=== PATIENT | male | born 1960 | race Caucasian/White ===

== ENCOUNTER → 2019-10-29 11:44 | Outpatient (BNVA) | payer MEDICARE, SELFPAY | PROVIDERS: Family Provider Nurse Practitioner; PCP Nurse Practitioner; Visit Provider Nurse Practitioner | DX: E11.65 Type 2 diabetes mellitus with hyperglycemia (principal) | CPT/HCPCS: 80053; 80061; 81000; 82044; 83036 ==

== ENCOUNTER → 2020-01-28 11:22 | Outpatient (BNVA) | payer MEDICARE, SELFPAY | PROVIDERS: Family Provider Nurse Practitioner; PCP Nurse Practitioner; Visit Provider Nurse Practitioner | DX: E11.65 Type 2 diabetes mellitus with hyperglycemia (principal); E55.9 Vitamin D deficiency, unspecified; E03.9 Hypothyroidism, unspecified; I25.810 Atherosclerosis of coronary artery bypass graft(s) without angina pectoris | CPT/HCPCS: 80053; 80061; 81000; 82306; 83036; 84443 ==

== ENCOUNTER → 2020-05-07 11:12 | Outpatient (BNVA) | payer MEDICARE, SELFPAY | PROVIDERS: Family Provider Nurse Practitioner; PCP Nurse Practitioner; Visit Provider Nurse Practitioner | DX: E11.65 Type 2 diabetes mellitus with hyperglycemia (principal); E03.9 Hypothyroidism, unspecified; I10 Essential (primary) hypertension; Z95.1 Presence of aortocoronary bypass graft; E78.2 Mixed hyperlipidemia | CPT/HCPCS: 80053; 82043; 83036; 84443 ==

== ENCOUNTER → 2020-07-29 11:29 | Outpatient (BNVA) | payer MEDICARE, SELFPAY | PROVIDERS: Family Provider Nurse Practitioner; PCP Nurse Practitioner; Visit Provider Nurse Practitioner | DX: E11.65 Type 2 diabetes mellitus with hyperglycemia (principal); E03.9 Hypothyroidism, unspecified; E55.9 Vitamin D deficiency, unspecified; E78.2 Mixed hyperlipidemia; Z95.1 Presence of aortocoronary bypass graft | CPT/HCPCS: 80053; 80061; 81000; 82043; 82306; 83036; 84443 ==

== ENCOUNTER → 2020-10-21 10:37 | Outpatient (BNVA) | payer MEDICARE, SELFPAY | PROVIDERS: Family Provider Nurse Practitioner; PCP Nurse Practitioner; Visit Provider Nurse Practitioner | DX: E11.65 Type 2 diabetes mellitus with hyperglycemia (principal); E78.2 Mixed hyperlipidemia; E03.9 Hypothyroidism, unspecified; I10 Essential (primary) hypertension; Z95.1 Presence of aortocoronary bypass graft; K59.01 Slow transit constipation | CPT/HCPCS: 80053; 83036 ==

== ENCOUNTER → 2021-01-22 10:51 | Outpatient (BNVA) | payer MEDICARE, SELFPAY | PROVIDERS: Family Provider Nurse Practitioner; PCP Nurse Practitioner; Visit Provider Nurse Practitioner | DX: E11.65 Type 2 diabetes mellitus with hyperglycemia (principal); E78.2 Mixed hyperlipidemia; E03.9 Hypothyroidism, unspecified; I10 Essential (primary) hypertension; Z95.1 Presence of aortocoronary bypass graft; K59.01 Slow transit constipation; E55.9 Vitamin D deficiency, unspecified; Z12.83 Encounter for screening for malignant neoplasm of skin | CPT/HCPCS: 80053; 80061; 83036; 84443; 85025 ==

== ENCOUNTER → 2021-04-16 10:56 | Outpatient (BNVA) | payer MEDICARE, SELFPAY | PROVIDERS: Family Provider Nurse Practitioner; PCP Nurse Practitioner; Visit Provider Nurse Practitioner | DX: E11.65 Type 2 diabetes mellitus with hyperglycemia (principal); E03.9 Hypothyroidism, unspecified | CPT/HCPCS: 80053; 80061; 81000; 83036; 84443; 85025 ==

== ENCOUNTER → 2021-06-01 08:53 | Outpatient (BNVA) | payer MEDICARE, SELFPAY | PROVIDERS: Family Provider Nurse Practitioner; PCP Nurse Practitioner; Referring Provider Internal Medicine Cardiovascular Disease; Visit Provider Internal Medicine Cardiovascular Disease | DX: I49.40 Unspecified premature depolarization (principal); Z95.1 Presence of aortocoronary bypass graft; Z01.818 Encounter for other preprocedural examination; Z20.822 Contact with and (suspected) exposure to COVID-19 | CPT/HCPCS: 80048; 85025; 85610; 87635 ==

== ENCOUNTER 2021-06-05 09:14 | Day surgery (SDC) | payer MEDICARE, SELFPAY ==
--- NOTE | 2021-06-05 09:00 | XACV_ITS ---
Exam Room: [employer] Ht: 185 cm Wt: 155 kg BSA: 2.89 m2 Gender: Male : 1960 Any Known Allergies: Other Exam Priority: Routine Procedure(s): Procedure Description: Diagnostic procedure Procedure Description: Aortogram Procedure Description: Venous Graft Catheterization Procedure Description: Coronary Angiography Procedure Description: Pressure Wire Livai HODGE; Diagnostic Cath Status: Elective Diagnostic Findings * Circumflex has no disease. * Left Main: minimal 30% stenosis, MARRY: 3 flow. * Mid Left Anterior Descending: obstructive 60% stenosis, MARRY: 3 flow. * Distal Right Coronary Artery: total occlusion, MARRY: 3 flow. * Ascending Aorta to Right Posterior AV graft: patent. * Ascending Aorta to Second Obtuse Marginal Branch Segment graft: minimal 30% stenosis, MARRY: 3 flow. * Two grafts visualized. * Coronary angiography shows right dominance. Conclusions 1. There is total occlusion coronary artery disease with three vessel disease. 2. Two coronary grafts visualized: one graft patent, and one graft diseased. 3. Patient has prior CABG. 4. FFR: After equalizing the distal and proximal pressure of FFR wire proximal to the lesion, mid L 5. AD 6. lesion was crossed with FFR wire. IV adenosine at rate of 140 mcg/min was started. Patient did not compliant of any symptoms, at then end of two minutes FFR was recorded as 0.86, which is not significant . 7. Left subclavian appeared to be occluded I was not able to cross with the catheter and selective subclavian injection was suggestive of proximal occlusion. Possible TAYLOR was not used. We will ask for medical records. We performed then FFR of mid LAD which was not significant. Medical management was suggested.. Recommendations * 1-Return to inpatient for close monitoring and routine cath care2-Risk factor modification for secondary prevention3-Statin and aspirin 81 mg life--long, if tolerated4-I will ask for outpatient records to see whether TAYLOR was there are not I believe there may not be TAYLOR, since FFR was not positive therefore we will treat him medically. 5-Continue optimal medical management6-Follow up with Dr. Bhakta in four weeks and your primary care in 10 days. Diagnostic RX Recommendation: medical therapy and/or counseling Pressures Phase:Rest AO : 155 / 72 ( 91 ) @ 10:52:00 AM 118 / 72 ( 90 ) @ 10:55:00 AM 122 / 77 ( 96 ) @ 10:58:00 AM Clinical Evaluation EBL: 5mL-10mL Procedural Details Procedure Consent Obtained. Current Diagnosis : Chest Pain. Pre-Procedure Time Out. Identified patient by full name and date of as verbalized by the patient/guarantor. Does the consent match the physician's order: Yes. Accurate & Complete Informed Consent: Yes. Inpatient/Outpatient History & Physical on Chart: Yes. If H&P is completed, is and addenduem needed: No; If yes, is the addendum complete: N/A. Visualize and Verify Site with Patient/Guarantor: N/A. Relevant Radiology Images available: Yes. The risks, benefits, and alternatives of sedation and/or procedure were discussed by physician. The patient agrees to continue. Procedure started. [facility] Clinical Fraility Score: 3: Managing Well. Lathe Scalper Operator Indications: Suspected CAD. Chest Pain Symptom Assessment: Typical Angina Symptoms. Correct patient, site and procedure confirmed by cath team. Current diagnosis: Chest Pain. PERRLA. Strong, equal hand metal patternmaker bilaterally. Lungs clear x 5 lobes. A 18 gauge IV was started in the left anticubital using aseptic technique. IV Fluids: 0.9% NaCl at KVO. 0 mL infused prior to laboratory tech. Pre Procedural Pulses: right radial was 3+. Oxygen started at 2liters/min via nasal canula. right groin was prepped with chloroprep then draped in the usual sterile fashion. Physician notified. Baseline sample Acquired. HR: 73 BPM. Physician arrived. Physician scrubbed in. Immediate Pre-Procedure Time Out. Correct Patient: Yes; Correct Procedure: Yes; Correct Site: Yes; Correct Patient Position: Yes; Correct Supplies: Yes; Dried Flammable Prep: Yes; Blood Products Available: N/A;. Lidocaine 1% infiltrated to the right groin. Arterial access obtained with micropuncture set. A 6 bahamian JL4 catheter in over wire. Multiple views taken of left coronary artery. Catheter removed over the exchange wire. A 6 bahamian JR4 catheter in over wire. Multiple views taken of right coronary artery. SVG's to RV branch visualized and patent. SVG's to RCA visualized and patent. Catheter removed over the exchange wire. A 6 bahamian Angled Pig catheter in over wire. Aortogram performed in LIAT @ 20 mL/second for a total of 40 mL. Physician review of cine films. Catheter removed over the standard wire. A 5 bahamian JR4 catheter in over wire. Catheter removed over the standard wire. 6 bahamian XB 3.5 guide catheter was inserted over the wire. FFR guidewire was advanced through the guide catheter to lesion in the LAD. Runthrough repositioned to distal LAD. An FFR value of 0.86 was obtained for a lesion located at Mid LAD. Wire out. Runthrough wire out. Guide catheter out. A Right femoral angiogram was performed to determine safe placement of closure device. Patient's family updated. Lidocaine 1% infiltrated to the right groin. A Perclose ([employer]) was successful obtaining hemostatsis at the Right Femoral artery insertion site. Post Procedure: Pulses reassessed and unchanged. PERRLA. Strong, equal hand metal patternmaker bilaterally. No VTE prophylaxis required. Medication's Wasted: Heparin = 1000 u. Total IV fluids: 112 mL. Post-op diagnosis: non obstructive CAD. Complications: none. Estimated blood loss: 5mL-10mL. Procedure completed. Patient transferred by bed to 1st floor. Vital chart was stopped. Access Site Site: Right Femoral artery Sheath Size: 6 Fr Hemostasis Method: Perclose ([employer]) Hemostasis Success: Successful Procedure Medications Start: 11:25 AM Stop: 11:25 AM Medication: Fentanyl Amount: 50 mcg Route: I.V. Start: 11:34 AM Stop: 11:34 AM Medication: Versed Amount: 2 mg Route: I.V. Start: 11:45 AM Stop: 11:45 AM Medication: Fentanyl Amount: 50 mcg Route: I.V. Start: 11:47 AM Stop: 11:47 AM Medication: Versed Amount: 1 mg Route: I.V. Start: 11:58 AM Stop: 11:58 AM Medication: Versed Amount: 1 mg Route: I.V. Start: 12:16 PM Stop: 12:16 PM Medication: Heparin Amount: 5000 units Route: I.V. Start: 12:36 PM Stop: 12:36 PM Medication: Versed Amount: 1 mg Route: I.V. Start: 12:37 PM Stop: 12:37 PM Medication: Fentanyl Amount: 50 mcg Route: I.V. I, the attending physician, have reviewed and verified all procedure medications. Yes, all medications given per verbal order History/Risk Factors Hypertension: No Dyslipidemia: Yes Peripheral Arterial Disease (PAD): No Myocardial Infarction (GA): No Obesity: No Renal Disease: No Prior Interventions PCI: No CABG: Yes Valve Surgery: No Report Signatures Finalized by Andrea Bhakta MD on 06/19/2021 11:03 AM
[2021-06-05 09:30] VITALS: BP 185/97; PULSE 80; RESP 23; O2SAT 90
[2021-06-05] MEDS: diphenhydrAMINE 50 mg Capsule PO (09:31)
[2021-06-05] MEDS: sodium chloride 0.9% 1,000 ML 50 ML IV (09:36)
[2021-06-05 10:15] VITALS: BP 154/98; PULSE 71; RESP 11; O2SAT 91
[2021-06-05 11:00] VITALS: O2SAT 85
[2021-06-05 11:09] LABS: Glucose Point of Care 128 mg/dL (70-110)
--- NOTE | 2021-06-05 11:11 | P.HP_ITS ---
Same Day Surgery H&P Indication for Procedure/HPI DATE OF PROCEDURE: June 05, 2021 CHIEF COMPLAINT/INDICATIONFOR SURGICAL PROCEDURE: Ventricular arrhythmia with frequent PVCs in a patient with history of CABG diabetes PREOP DIAGNOSIS: Preablation for high burden of PVCs more than 37% PLANNED PROCEDRUE: Operation Date: 06/05/21 10:00 Proposed Procedures p Cardiac Catheterization(Left) - Andrea Bhakta MD 60-year-old male past medical history significant for hypertension hyperlipidemia diabetes mellitus coronary disease status post CABG for palpitation pounding racing of the heart underwent Holter monitor which showed 37% burden of PVCs bigeminy, patient will be referred to electrophysiology telephone solicitor for possible PVC ablation. Today he is here for preablation left heart cath to rule out ischemia or any graft problem. I have personally explained all risk benefit and alternative for the procedure. Patient und erstand risk for stroke contrast-induced nephropathy major minor bleed transfusion vascular surgery hematoma pseudoaneurysm and infection he is candidate for DAPT Medications/Allergies* Home Medications Medication Instructions Recorded Confirmed Type aspirin 81 mg tablet,delayed 81 mg PO DAILY 12/24/19 06/05/21 History release cholecalciferol (vitamin D3) 125 10,000 unit PO DAILY cap 03/02/21 06/05/21 History mcg (5,000 unit) capsule atorvastatin 20 mg PO BEDTIME 06/04/21 06/05/21 History Allergies/Adverse Reactions Allergy/AdvReac Type Severity Reaction Status Date / Time empagliflozin Allergy Intermediate Hives Verified 04/15/21 15:05 influenza virus vaccine ts Allergy Intermediate ALGY-Conges Verified 06/05/21 10:00 [id number] (36 mos,up) shun [From Fluarix] Penicillins Allergy Intermediate Hives Verified 04/15/21 15:05 glipizide Allergy ALGY-Rash Verified 04/15/21 15:05 Current Medications: Generic Name Dose Route Start Last Admin Trade Name Freq PRN Reason Stop Dose Admin Sodium Chloride 1,000 mls @ 50 mls/hr 06/05/21 09:00 06/05/21 09:36 Sodium Chloride 0.9% IV 06/06/21 04:59 50 mls/hr .Q20H ONE Administration Pertinent History/Comorbid Conditions* Medical History (Updated 05/10/21 @ 17:48 by Andrea Bhakta MD) Adult hypothyroidism CKD (chronic kidney disease), stage II Controlled diabetes mellitus with hyperglycemia, without long-term current use of insulin Mixed hyperlipidemia Vitamin D insufficiency Surgical History (Updated 02/03/20 @ 20:24 by MIRANDA Morley) History of coronary artery bypass graft 2 grafts in 2006 Family History (Updated 10/29/19 @ 11:57 by ADDIE Phan) Diabetes CAD (coronary artery disease) Hypertension Denies family history of Bleeding disorder Social History Second hand smoke exposure: No Smoking risk assessment/counseling performed?: No Alcohol intake: never Desire information about alcohol rehabilitation?: No Counseling given: No Desire information about substance/drug rehabilitation?: No Counseling given: No Caregiver/support person: No Lives independently: Yes Household members: significant other Housing: House Marital status: Single service: No Current occupational status: unemployed History of recent travel: No Current gender identity: Male Pertinent Exam Findings alert, oriented x 3 and clear to auscultation bilaterally Conscious Sedation Assessment AIRWAY EVAL/ANESTHESIA PLAN: ASA II and Risks, benefits & alternatives of sedation and/or procedure discussed Recommendations Surgery/Procedure today Coding Level of Care Code Acute Linux Security Administrator for Zaire Sin
--- NOTE | 2021-06-05 14:02 | PC.NURSE ---
Patient to rn labor and delivery at 1115 and returned to room 107 at 1315. Patient transported on bed with [facility] staff.
[2021-06-05 18:20] VITALS: BP 134/73; PULSE 90; RESP 18; O2SAT 90
--- NOTE | 2021-06-05 18:30 | PC.NURSE ---
Patient was assisted up out of bed. Patient tolerated walking/activity well. vss. Dr. Bhakta contacted by telephone. Dr. Bhakta then came to patient's room to assess patient and answer patient's questions regarding discharge and follow-up. Patient was discharged home with writeen instructions at 1830.
== END 2021-06-05 18:30 | disposition home or self-care (01) ==
LOC: CSU 09:15 → OPS 06-12 10:29 → CSU 06-12 10:29
PROVIDERS: PCP Nurse Practitioner; Visit Provider Internal Medicine Cardiovascular Disease
DX: I49.3 Ventricular premature depolarization (principal); I49.9 Cardiac arrhythmia, unspecified; I43 Cardiomyopathy in diseases classified elsewhere; I25.810 Atherosclerosis of coronary artery bypass graft(s) without angina pectoris; E11.9 Type 2 diabetes mellitus without complications; E03.9 Hypothyroidism, unspecified; E78.2 Mixed hyperlipidemia; E55.9 Vitamin D deficiency, unspecified; Z79.82 Long term (current) use of aspirin; Z79.4 Long term (current) use of insulin; Z95.1 Presence of aortocoronary bypass graft
CPT/HCPCS: 36416; 82962; 93455; 93571; C1760; C1769; C1887; C1894; G0378; J0153; J1644; J2250; J3010; J7030; Q0163; Q9967

== ENCOUNTER 2021-06-08 09:25 | Outpatient (CLI) | payer MEDICARE, SELFPAY ==
[2021-06-08 10:16] LABS: Anion Gap 13.6 (5-19); Blood Urea Nitrogen 14 mg/dL (8-23); Carbon Dioxide 28 mmol/L (22-29); Chloride 98 mmol/L (98-107); Glomerular Filtration Rate 85.5 mL/min (90-130); Glucose 183 mg/dL (65-115); Osmolality Calculated 285 mOsm/kg (285-295); Potassium 4.6 mmol/L (3.5-5.1); Sodium 135 mmol/L (136-145)
== END 2021-06-08 09:26 | disposition home or self-care (01) ==
LOC: LAB 09:32
PROVIDERS: PCP Nurse Practitioner; Visit Provider Internal Medicine Cardiovascular Disease
DX: I49.40 Unspecified premature depolarization (principal)
CPT/HCPCS: 36415; 80048

== ENCOUNTER → 2021-06-15 15:50 | Outpatient (BNVA) | payer MEDICARE, SELFPAY | PROVIDERS: PCP Nurse Practitioner; Visit Provider Nurse Practitioner Family | DX: I49.3 Ventricular premature depolarization (principal) | CPT/HCPCS: 80048 ==

== ENCOUNTER 2021-07-12 02:25 | Inpatient (IN) | payer MEDICARE, SELFPAY ==
[2021-07-12] VITALS (13 sets, daily range): BP systolic 100–142; BP diastolic 49–89; PULSE 60–83; RESP 12–22; TEMP 36.1–36.6; O2SAT 91–98; BMI 44.9
--- NOTE | 2021-07-12 02:43 | ECG_ITS ---
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 Measurements Intervals [place] Rate: 90 P: MO: QRS: -82 QRSD: 154 T: 88 QT: 409 QTc: 503 Interpretive Statements ATRIAL FIBRILLATION RIGHT BUNDLE BRANCH BLOCK [120+ ms QRS DURATION, UPRIGHT V1, 40+ ms S IN I/aVL/V4/V5/V6] INFERIOR MYOCARDIAL INFARCTION , of indeterminate age [40+ ms Q WAVE AND/OR ST/T ABNORMALITY IN II/aVF] ANTEROLATERAL MYOCARDIAL INFARCTION , OF INDETERMINATE AGE [40+ ms Q WAVE IN I/aVL/V3-V6] Compared to ECG 08/13/2018 16:19:44 Right bundle-branch block now present Myocardial infarct finding now present Sinus tachycardia no longer present First degree AV block no longer present Atrial abnormality no longer present Electronically Signed On 07-12-2021 13:16:30 HUMAN CAPITAL ANALYST by Rich Ceron M.D. [id number]
--- NOTE | 2021-07-12 03:20 | ECG_ITS ---
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 Measurements Intervals [place] Rate: 81 P: OR: QRS: -81 QRSD: 158 T: 89 QT: 420 QTc: 489 Interpretive Statements ATRIAL FIBRILLATION RIGHT BUNDLE BRANCH BLOCK [120+ ms QRS DURATION, UPRIGHT V1, 40+ ms S IN I/aVL/V4/V5/V6] ANTERIOR MYOCARDIAL INFARCTION , OF INDETERMINATE AGE [40+ ms Q WAVE AND/OR ST/T ABNORMALITY IN V3/V4] Compared to ECG 07/12/2021 02:47:52 No significant changes Electronically Signed On 07-12-2021 13:15:22 AIRPLANE DISPATCHER by Rich Ceron M.D. [id number]
--- NOTE | 2021-07-12 03:20 | XRR_ITS ---
PROCEDURE INFORMATION: Exam: XR Chest Exam date and time: 07/12/2021 3:20 AM Age: 60 years old Clinical indication: Sternal or substernal pain; Prior surgery; Surgery date: 6+ months; Surgery type: Cabg; Additional info: Chest pain TECHNIQUE: Imaging protocol: XR of the chest. Views: 1 view. Total images: 1 COMPARISON: CR Chest 2 views* 32017 08/13/2018 8:58 AM FINDINGS: Lungs: Minimal bibasilar atelectasis or scar. Pleural spaces: Unremarkable. No pleural effusion. No pneumothorax. Heart/Mediastinum: Heart size is stable when compared to the prior exam. Bones/joints: Osseous structures are unchanged from the prior exam. Other findings: Stable postsurgical changes. XR/XR chest 1V portable [id number] IMPRESSION: Minimal bibasilar atelectasis or scar. Radiation Dose CTDIVOL = (mGy): DLP = (mGy-cm)
[2021-07-12 03:35] LABS: Basophils % 0.5 %; Eosinophils # 0.2 10^3/uL (0.0-0.8); Hemoglobin 16.3 g/dL (11.7-16.6); Lymphocytes # 1.5 10^3/uL (0.8-4.8); Lymphocytes % 18.2 %; Mean Corpuscular HGB Conc 32.6 g/dL (30.0-36.0); Mean Corpuscular Hemoglobin 31.8 pg (28.0-34.0); Mean Corpuscular Volume 97.7 fl (80-94); Mean Platelet Volume 10.3 fL (7.4-10.4); Monocytes # 0.7 10^3/uL (0.2-0.9); Monocytes % 8.5 %; Neutrophils # 5.67 10^3/uL (1.8-7.7); Neutrophils % 70.6 %; Nucleated Red Blood Cells % 0 %; Platelet Count 197 10^3/cmm (130-400); Red Blood Count 5.12 10^6/uL (4.1-5.3); Red Cell Distribution Width 14.5 % (12.1-15.1)
[2021-07-12 03:51] LABS: D Dimer 0.48 ug/mIFEU (0-0.59)
[2021-07-12 04:01] LABS: Troponin(5th) Baseline 11 ng/L (0-15)
[2021-07-12 04:10] LABS: Alanine Aminotransferase 35 U/L (0-41); Albumin Level 3.8 g/dL (3.5-5.2); Alkaline Phosphatase 89 IU/L (40-130); Anion Gap 13.5 (5-19); Aspartate Amino Transferase 15 U/L (0-40); Blood Urea Nitrogen 20 mg/dL (8-23); Calcium 8.8 mg/dL (8.5-10.5); Carbon Dioxide 28 mmol/L (22-29); Chloride 103 mmol/L (98-107); Globulin 2.2 g/dL (1.3-4.6); Glomerular Filtration Rate 85.5 mL/min (90-130); Glucose 170 mg/dL (65-115); NT Pro B Type Natriuretic Pept 683 pg/mL (0-125); Osmolality Calculated 297 mOsm/kg (285-295); Potassium 4.5 mmol/L (3.5-5.1); Sodium 140 mmol/L (136-145); Total Bilirubin 0.5 mg/dL (0.15-1.2)
[2021-07-12 04:35] LABS: SARS Covid-2 Antigen Negative (Negative)
[2021-07-12] MEDS: ondansetron 2 mg/ML SDV 2 mL 4 MG IVP (04:47)
[2021-07-12] MEDS: morphine 4 mg/mL SDV 1 mL IVP (04:47)
--- NOTE | 2021-07-12 05:05 | CTR_ITS ---
PROCEDURE INFORMATION: Exam: CTA Chest With Contrast Exam date and time: 07/12/2021 5:05 AM Age: 60 years old Clinical indication: Pain; Chest pressure; Prior surgery; Additional info: Chest pain TECHNIQUE: Imaging protocol: Computed tomographic angiography of the chest with contrast. 3D rendering (Not supervised by radiologist): MIP and/or 3D reconstructed images were created by the technologist. Total images: 1003 Radiation optimization: All CT scans at this facility use at least one of these dose optimization techniques: automated exposure control; mA and/or kV adjustment per patient size (includes targeted exams where dose is matched to clinical indication); or iterative reconstruction. Contrast material: OMNI 350; Contrast volume: 95 ml; Contrast route: INTRAVENOUS (IV); COMPARISON: CR (CHEST, ) 07/12/2021 3:23 AM RADIATION DOSE METRICS: Total DLP (mGy-cm): 629.95 FINDINGS: Pulmonary arteries: Pulmonary artery evaluation of good technical quality with no pulmonary artery embolism identified. Aorta: Unremarkable. No aortic aneurysm. No aortic dissection. Lungs: Benign granulomatous disease of the lung is noted. Pleural spaces: Unremarkable. No pneumothorax. No pleural effusion. Heart: Prior coronary artery bypass grafting. Lymph nodes: Multiple mildly enlarged mediastinal and hilar lymph nodes which are partially calcified. The largest is in the right paratracheal area measuring 1.6 cm in short axis diameter. Gallbladder and bile ducts: Cholelithiasis is present without cholecystitis. No gallbladder wall thickening or pericholecystic fluid collection. Bones/joints: Unremarkable. No acute fracture. Soft tissues: Unremarkable. CT/CT angio chest PE protcl [id number] IMPRESSION: 1. Multiple mildly enlarged mediastinal and hilar lymph nodes which are partially calcified. The largest is in the right paratracheal area measuring 1.6 cm in short axis diameter. 2. Benign granulomatous disease of the lung is noted. 3. No pulmonary artery embolism identified. 4. No acute process identified. 5. Cholelithiasis is present without cholecystitis. No gallbladder wall thickening or pericholecystic fluid collection. Radiation Dose CTDIVOL = (mGy): DLP = 629.95 (mGy-cm)
--- NOTE | 2021-07-12 05:20 | ECG_ITS ---
[facility] Test Date: 2021-07-12 Pat Name: Henry Perez Department: Room: Gender: Male Rock Mason: : 1960 Requested By: Catrachito Pro Order Number: [id number] Hankins MD: Rich Ceron M.D. Measurements Intervals [place] Rate: 64 P: 41 [place]: 257 QRS: 261 QRSD: 96 T: -29 QT: 405 QTc: 419 Interpretive Statements SINUS RHYTHM WITH FIRST DEGREE AV BLOCK POSSIBLE LEFT ATRIAL ENLARGEMENT [-0.1mV P-WAVE IN V1/V2] PATTERN CONSISTENT WITH PULMONARY DISEASE POSSIBLE RIGHT VENTRICULAR HYPERTROPHY [SOME/ALL OF: PROMINENT R IN V1, LATE TRANSITION, RAD, MARILEE, SSS] MINIMAL ST DEPRESSION [0.025+ mV ST DEPRESSION] ABNORMAL QRS-T ANGLE [QRS-T AXIS DIFFERENCE > 60] Compared to ECG 07/12/2021 03:30:03 First degree AV block now present ST (T wave) deviation now present Atrial fibrillation no longer present Right bundle-branch block no longer present Myocardial infarct finding no longer present Electronically Signed On 07-12-2021 13:28:36 STEEL PLATE CAULKER by Rich Ceron M.D. [id number]
--- NOTE | 2021-07-12 05:22 | W.ED.CHESTPA ---
Documented by User: Catrachtio Howard, 07/12/21 06:15 HPI - Chest Pain General: Chief Complaint: Chest Pain Stated Complaint: cp, chest pressure Time Seen by Provider: 07/12/21 03:12 History of Present Illness: HPI narrative: 60-year-old gentleman with a history of coronary disease status post CABG in 2006. He has some new atherosclerotic narrowing on recent catheterization, although none severe enough to stent. He presents with chest discomfort. He says it started tonight while in bed. Mild shortness of breath associated with it. No nausea or diaphoresis. The pain does not radiate. It is centralized. He denies significant cough or fever. MD complaint: chest pain Pertinent past history: coronary artery disease Onset (ago): hour(s) Timing of current episode: constant Prior episodes: Yes Onset: during rest Pain location: substernal Pain radiation: none Quality: aching and heaviness Exacerbating factors: exertion Context: history of DVT/PE Associated symptoms: Reports dyspnea; Deny abdominal pain, fever(s), nausea, palpitations or vomiting Review of Systems Const: Denies: fever(s) Eyes: Denies: change in vision ENMT: Denies: throat pain Card: Reports: chest pain; Denies: palpitations Resp: Reports: dyspnea GI: Denies: abdominal pain, nausea or vomiting PFSH ED PFSH: Medical History Adult hypothyroidism CKD (chronic kidney disease), stage II Controlled diabetes mellitus with hyperglycemia, without long-term current use of insulin Mixed hyperlipidemia Slow transit constipation Vitamin D insufficiency Surgical History History of coronary artery bypass graft 2 grafts in 2006 Family History Other CAD (coronary artery disease) Diabetes Hypertension Denies family history of Bleeding disorder Social History Second hand smoke exposure: No Smoking risk assessment/counseling performed?: No Alcohol intake: never Desire information about alcohol rehabilitation?: No Counseling given: No Desire information about substance/drug rehabilitation?: No Counseling given: No Caregiver/support person: No Lives independently: Yes Household members: significant other Housing: House Marital status: Single service: No Current occupational status: unemployed History of recent travel: No Current gender identity: Male Physical Exam Const: COMMON NORMALS: no acute distress, patient oriented x3 and alert HENMT: COMMON NORMALS: normocephalic HEAD & SCALP: normocephalic Eye: COMMON NORMALS: Equal, round and reactive pupils present and EOMs intact bilaterally PUPIL: Yes Equal, round and reactive pupils present Chest: COMMONS NORMALS: normal inspection of the chest Resp: COMMON NORMALS: normal respiratory effort, No use of accessory muscles and clear to auscultation bilaterally AUSCULTATION: clear to auscultation bilaterally and diminished lung sounds Cardio: COMMON NORMALS: regular rate and regular rhythm RATE: regular rate RHYTHM: regular rhythm Extremity: COMMON NORMALS: no pedal edema Neuro: COMMON NORMALS: patient oriented x3 SENSORIUM/ORIENTATION: Yes alert Course Vital Signs: Vital signs: Vital Signs Temperature 97 F L 07/12/21 02:32 Pulse Rate 60 07/12/21 07:32 Respiratory Rate 12 07/12/21 07:32 Blood Pressure 100/49 07/12/21 07:32 Pulse Oximetry 94 07/12/21 07:32 MDM - Chest Pain MDM Narrative: Medical decision making narrative: 60-year-old male presents with chest pain. He is significantly hypoxic on arrival, although he is not tachypneic or having labored breathing. Oxygen saturations were in the 70s and low 80s. He was placed on 3 L nasal cannula with improvement to 93%. His heart rate 66, sinus, blood pressure 116/65 his white blood cell count is 8, hemoglobin 16. BMP is normal. His baseline troponin is 11. His D-dimer is only 0.48. Nevertheless, because of significant hypoxia on exam, CTA of the chest has been ordered. 2nd trop still pending. He'll be checked out to Dr. Whitney at shift change for fu on findings and admit for hypoxic resp failure. Lab Data: Labs: Lab Results 07/12/21 07/12/21 07/12/21 03:03 03:03 03:03 WBC 8.0 10^3/uL 10^3/ uL (4.0-10.0) RBC 5.12 10^6/uL 10^6 /uL (4.1-5.3) Hgb 16.3 g/dL g/dL (11.7-16.6) Hct 50.0 % % (42.0-52.0) MCV 97.7 fl H fl (80-94) MCH 31.8 pg pg (28.0-34.0) MCHC 32.6 g/dL g/dL (30.0-36.0) RDW 14.5 % % (12.1-15.1) Plt Count 197 10^3/cmm 10^3 /cmm (130-400) MPV 10.3 fL fL (7.4-10.4) Neut % (Auto) 70.6 % % Lymph % (Auto) 18.2 % % [place] % (Auto) 8.5 % % Eos % (Auto) 2.0 % % Baso % (Auto) 0.5 % % Neut # (Auto) 5.67 10^3/uL 10^3 /uL (1.8-7.7) Lymph # (Auto) 1.5 10^3/uL 10^3/ uL (0.8-4.8) [place] # (Auto) 0.7 10^3/uL 10^3/ uL (0.2-0.9) Eos # (Auto) 0.2 10^3/uL 10^3/ uL (0.0-0.8) Baso # (Auto) 0.0 10^3/uL 10^3/ uL (0.0-0.1) Nucleated RBC % (a uto) 0 % % Nucleated RBCs # 0.0 /100WBC /100W BC D-Dimer 0.48 ug/mIFEU ug/ mIFEU (0-0.59) Specimen Type Sample Site ABG pH ABG pCO2 ABG pO2 ABG HCO3 ABG Base Excess Johnathan Test Hematocrit O2 Delivery Device O2 Liters/Min Tip Stretcher ID Sodium 140 mmol/L mmol/L (136-145) Potassium 4.5 mmol/L mmol/L (3.5-5.1) Chloride 103 mmol/L mmol/L (98-107) Carbon Dioxide 28 mmol/L mmol/L (22-29) Anion Gap 13.5 (5-19) BUN 20 mg/dL mg/dL (8-23) Creatinine 0.9 mg/dL mg/dL (0.7-1.2) GFR Calculation 85.5 mL/min L mL/ min (90-130) Glucose 170 mg/dL H mg/dL (65-115) Calculated Osmolal ity 297 mOsm/kg H mOs m/kg (285-295) Calcium 8.8 mg/dL mg/dL (8.5-10.5) Total Bilirubin 0.5 mg/dL mg/dL (0.15-1.2) AST 15 U/L U/L (0-40) ALT 35 U/L U/L (0-41) Alkaline Phosphata se 89 IU/L IU/L (40-130) Troponin T Baselin e Troponin T 120 Min [place] Delta Troponin T NT-Pro-B Natriuret Pep 683 pg/mL H pg/mL (0-125) Total Protein 6.0 g/dL L g/dL (6.6-8.7) Albumin 3.8 g/dL g/dL (3.5-5.2) Globulin 2.2 g/dL g/dL (1.3-4.6) SARS-CoV-2 Ag (Rap id) 07/12/21 07/12/21 07/12/21 03:03 03:49 04:57 WBC RBC Hgb Hct MCV MCH MCHC RDW Plt Count MPV Neut % (Auto) Lymph % (Auto) [place] % (Auto) Eos % (Auto) Baso % (Auto) Neut # (Auto) Lymph # (Auto) [place] # (Auto) Eos # (Auto) Baso # (Auto) Nucleated RBC % (a uto) Nucleated RBCs # D-Dimer Specimen Type Arterial Sample Site Radial, right ABG pH 7.32 L (7.35-7.45) ABG pCO2 59.0 mmHg H mmHg (35-45) ABG pO2 59.1 mmHg L mmHg (80.0-100.0) ABG HCO3 30.0 mmol/L H mmo l/L (22-26) ABG Base Excess 2.0 mmol/L mmol/L (-2.0-2.0) Johnathan Test Pos Hematocrit 50.2 % % (42-52) O2 Delivery Device Nc O2 Liters/Min 3.0 % % Tip Stretcher ID [email or web address] Sodium Potassium Chloride Carbon Dioxide Anion Gap BUN Creatinine GFR Calculation Glucose Calculated Osmolal ity Calcium Total Bilirubin AST ALT Alkaline Phosphata se Troponin T Baselin e 11 ng/L ng/L (0-15) Troponin T 120 Min [place] Delta Troponin T NT-Pro-B Natriuret Pep Total Protein Albumin Globulin SARS-CoV-2 Ag (Rap id) Negative (Negative) 07/12/21 05:58 WBC RBC Hgb Hct MCV MCH MCHC RDW Plt Count MPV Neut % (Auto) Lymph % (Auto) [place] % (Auto) Eos % (Auto) Baso % (Auto) Neut # (Auto) Lymph # (Auto) [place] # (Auto) Eos # (Auto) Baso # (Auto) Nucleated RBC % (a uto) Nucleated RBCs # D-Dimer Specimen Type Sample Site ABG pH ABG pCO2 ABG pO2 ABG HCO3 ABG Base Excess Johnathan Test Hematocrit O2 Delivery Device O2 Liters/Min Tip Stretcher ID Sodium Potassium Chloride Carbon Dioxide Anion Gap BUN Creatinine GFR Calculation Glucose Calculated Osmolal ity Calcium Total Bilirubin AST ALT Alkaline Phosphata se Troponin T Baselin e Troponin T 120 Min [place] 11.26 ng/L ng/L (0-15) Delta Troponin T 0.26 ABS# ABS# (0-10) NT-Pro-B Natriuret Pep Total Protein Albumin Globulin SARS-CoV-2 Ag (Rap id) Discharge Plan Discharge Patient Disposition: Admitted As Inpatient Clinical Impression: Chest pain, Hypoxemia Condition: Stable Coding Level of Care Code ED Lead Network Engineer for Chg Fwd Exam Detailed Documented by User: Eusebio Whitney MD 07/12/21 08:16 HPI - Chest Pain General: Chief Complaint: Chest Pain Stated Complaint: cp, chest pressure Time Seen by Provider: 07/12/21 03:12 PFS ED PFSH: Medical History Adult hypothyroidism CKD (chronic kidney disease), stage II Controlled diabetes mellitus with hyperglycemia, without long-term current use of insulin Mixed hyperlipidemia Slow transit constipation Vitamin D insufficiency Surgical History History of coronary artery bypass graft 2 grafts in 2006 Family History Other CAD (coronary artery disease) Diabetes Hypertension Denies family history of Bleeding disorder Social History Second hand smoke exposure: No Smoking risk assessment/counseling performed?: No Alcohol intake: never Desire information about alcohol rehabilitation?: No Counseling given: No Desire information about substance/drug rehabilitation?: No Counseling given: No Caregiver/support person: No Lives independently: Yes Household members: significant other Housing: House Marital status: Single service: No Current occupational status: unemployed History of recent travel: No Current gender identity: Male Course Vital Signs: Vital signs: Vital Signs Temperature 97 F L 07/12/21 02:32 Pulse Rate 60 07/12/21 07:32 Respiratory Rate 12 07/12/21 07:32 Blood Pressure 100/49 07/12/21 07:32 Pulse Oximetry 94 07/12/21 07:32 MDM - Chest Pain MDM Narrative: Medical decision making narrative: CTA negative for any ground glass opacities or PE. Patient is occasionally hypoxemic. Troponin x 2 negative. Will admit for chest pain workup. Lab Data: Labs: Lab Results 07/12/21 07/12/21 07/12/21 03:03 03:03 03:03 WBC 8.0 10^3/uL 10^3/ uL (4.0-10.0) RBC 5.12 10^6/uL 10^6 /uL (4.1-5.3) Hgb 16.3 g/dL g/dL (11.7-16.6) Hct 50.0 % % (42.0-52.0) MCV 97.7 fl H fl (80-94) MCH 31.8 pg pg (28.0-34.0) MCHC 32.6 g/dL g/dL (30.0-36.0) RDW 14.5 % % (12.1-15.1) Plt Count 197 10^3/cmm 10^3 /cmm (130-400) MPV 10.3 fL fL (7.4-10.4) Neut % (Auto) 70.6 % % Lymph % (Auto) 18.2 % % [place] % (Auto) 8.5 % % Eos % (Auto) 2.0 % % Baso % (Auto) 0.5 % % Neut # (Auto) 5.67 10^3/uL 10^3 /uL (1.8-7.7) Lymph # (Auto) 1.5 10^3/uL 10^3/ uL (0.8-4.8) [place] # (Auto) 0.7 10^3/uL 10^3/ uL (0.2-0.9) Eos # (Auto) 0.2 10^3/uL 10^3/ uL (0.0-0.8) Baso # (Auto) 0.0 10^3/uL 10^3/ uL (0.0-0.1) Nucleated RBC % (a uto) 0 % % Nucleated RBCs # 0.0 /100WBC /100W BC D-Dimer 0.48 ug/mIFEU ug/ mIFEU (0-0.59) Specimen Type Sample Site ABG pH ABG pCO2 ABG pO2 ABG HCO3 ABG Base Excess Johnathan Test Hematocrit O2 Delivery Device O2 Liters/Min Tip Stretcher ID Sodium 140 mmol/L mmol/L (136-145) Potassium 4.5 mmol/L mmol/L (3.5-5.1) Chloride 103 mmol/L mmol/L (98-107) Carbon Dioxide 28 mmol/L mmol/L (22-29) Anion Gap 13.5 (5-19) BUN 20 mg/dL mg/dL (8-23) Creatinine 0.9 mg/dL mg/dL (0.7-1.2) GFR Calculation 85.5 mL/min L mL/ min (90-130) Glucose 170 mg/dL H mg/dL (65-115) Calculated Osmolal ity 297 mOsm/kg H mOs m/kg (285-295) Calcium 8.8 mg/dL mg/dL (8.5-10.5) Total Bilirubin 0.5 mg/dL mg/dL (0.15-1.2) AST 15 U/L U/L (0-40) ALT 35 U/L U/L (0-41) Alkaline Phosphata se 89 IU/L IU/L (40-130) Troponin T Baselin e Troponin T 120 Min [place] Delta Troponin T NT-Pro-B Natriuret Pep 683 pg/mL H pg/mL (0-125) Total Protein 6.0 g/dL L g/dL (6.6-8.7) Albumin 3.8 g/dL g/dL (3.5-5.2) Globulin 2.2 g/dL g/dL (1.3-4.6) SARS-CoV-2 Ag (Rap id) 07/12/21 07/12/21 07/12/21 03:03 03:49 04:57 WBC RBC Hgb Hct MCV MCH MCHC RDW Plt Count MPV Neut % (Auto) Lymph % (Auto) [place] % (Auto) Eos % (Auto) Baso % (Auto) Neut # (Auto) Lymph # (Auto) [place] # (Auto) Eos # (Auto) Baso # (Auto) Nucleated RBC % (a uto) Nucleated RBCs # D-Dimer Specimen Type Arterial Sample Site Radial, right ABG pH 7.32 L (7.35-7.45) ABG pCO2 59.0 mmHg H mmHg (35-45) ABG pO2 59.1 mmHg L mmHg (80.0-100.0) ABG HCO3 30.0 mmol/L H mmo l/L (22-26) ABG Base Excess 2.0 mmol/L mmol/L (-2.0-2.0) Johnathan Test Pos Hematocrit 50.2 % % (42-52) O2 Delivery Device Nc O2 Liters/Min 3.0 % % Tip Stretcher ID [id number] Sodium Potassium Chloride Carbon Dioxide Anion Gap BUN Creatinine GFR Calculation Glucose Calculated Osmolal ity Calcium Total Bilirubin AST ALT Alkaline Phosphata se Troponin T Baselin e 11 ng/L ng/L (0-15) Troponin T 120 Min [place] Delta Troponin T NT-Pro-B Natriuret Pep Total Protein Albumin Globulin SARS-CoV-2 Ag (Rap id) Negative (Negative) 07/12/21 05:58 WBC RBC Hgb Hct MCV MCH MCHC RDW Plt Count MPV Neut % (Auto) Lymph % (Auto) [place] % (Auto) Eos % (Auto) Baso % (Auto) Neut # (Auto) Lymph # (Auto) [place] # (Auto) Eos # (Auto) Baso # (Auto) Nucleated RBC % (a uto) Nucleated RBCs # D-Dimer Specimen Type Sample Site ABG pH ABG pCO2 ABG pO2 ABG HCO3 ABG Base Excess Johnathan Test Hematocrit O2 Delivery Device O2 Liters/Min Tip Stretcher ID Sodium Potassium Chloride Carbon Dioxide Anion Gap BUN Creatinine GFR Calculation Glucose Calculated Osmolal ity Calcium Total Bilirubin AST ALT Alkaline Phosphata se Troponin T Baselin e Troponin T 120 Min [place] 11.26 ng/L ng/L (0-15) Delta Troponin T 0.26 ABS# ABS# (0-10) NT-Pro-B Natriuret Pep Total Protein Albumin Globulin SARS-CoV-2 Ag (Rap id) Imaging Data^: Other Imaging: Radiologist's impression: [facility] [place], [place] [address] Scan ReportSigned Patient: Henry Perez #: [id number]: 1960cct#:[id number]/Sex: 60 / MADM Date: 07/12/21Loc: [facility]/Bed:Attending Dr: Ordering Provider/Ordering MD: Catrachito Howard DO Date of Service: 07/12/21 Procedure(s): CT angio chest PE protcl [id number] Accession Number(s): [id number] Report Number: [id number] PROCEDURE INFORMATION: Exam: CTA Chest With Contrast Exam date and time: 07/12/2021 5:05 AM Age: 60 years old Clinical indication: Pain; Chest pressure; Prior surgery; Additional info: Chest pain TECHNIQUE: Imaging protocol: Computed tomographic angiography of the chest with contrast. 3D rendering (Not supervised by radiologist): MIP and/or 3D reconstructed images were created by the technologist. Total images: 1003 Radiation optimization: All CT scans at this facility use at least one of these dose optimization techniques: automated exposure control; mA and/or kV adjustment per patient size (includes targeted exams where dose is matched to clinical indication); or iterative reconstruction. Contrast material: OMNI 350; Contrast volume: 95 ml; Contrast route: INTRAVENOUS (IV); COMPARISON: CR (CHEST, ) 07/12/2021 3:23 AM RADIATION DOSE METRICS: Total DLP (mGy-cm): 629.95 FINDINGS: Pulmonary arteries: Pulmonary artery evaluation of good technical quality with no pulmonary artery embolism identified. Aorta: Unremarkable. No aortic aneurysm. No aortic dissection. Lungs: Benign granulomatous disease of the lung is noted. Pleural spaces: Unremarkable. No pneumothorax. No pleural effusion. Heart: Prior coronary artery bypass grafting. Lymph nodes: Multiple mildly enlarged mediastinal and hilar lymph nodes which are partially calcified. The largest is in the right paratracheal area measuring 1.6 cm in short axis diameter. Gallbladder and bile ducts: Cholelithiasis is present without cholecystitis. No gallbladder wall thickening or pericholecystic fluid collection. Bones/joints: Unremarkable. No acute fracture. Soft tissues: Unremarkable. CT/CT angio chest PE protcl [id number] IMPRESSION: 1. Multiple mildly enlarged mediastinal and hilar lymph nodes which are partially calcified. The largest is in the right paratracheal area measuring 1.6 cm in short axis diameter. 2. Benign granulomatous disease of the lung is noted. 3. No pulmonary artery embolism identified. 4. No acute process identified. 5. Cholelithiasis is present without cholecystitis. No gallbladder wall thickening or pericholecystic fluid collection. Radiation Dose CTDIVOL = (mGy): DLP = 629.95 (mGy-cm) Dictated By:Vitaliy Summers MDSigned By:Vitaliy Summers MDSigned Date/Time:07/12/21 0608DD/ [address] [address]GLnh ReportSigned Patient: Henry Perez #: [id number]: 8Acct#:[id number]/Sex: 60 / MADM Date: 07/12/21Loc: [facility]/Bed:Attending Dr: Ordering Provider/Ordering MD: Catrachito Howard DO Date of Service: 07/12/21 Procedure(s): XR chest 1V portable [id number] Accession Number(s): [id number] Report Number: [id number] PROCEDURE INFORMATION: Exam: XR Chest Exam date and time: 07/12/2021 3:20 AM Age: 60 years old Clinical indication: Sternal or substernal pain; Prior surgery; Surgery date: 6+ months; Surgery type: Cabg; Additional info: Chest pain TECHNIQUE: Imaging protocol: XR of the chest. Views: 1 view. Total images: 1 COMPARISON: CR Chest 2 views* [id number] 08/13/2018 8:58 AM FINDINGS: Lungs: Minimal bibasilar atelectasis or scar. Pleural spaces: Unremarkable. No pleural effusion. No pneumothorax. Heart/Mediastinum: Heart size is stable when compared to the prior exam. Bones/joints: Osseous structures are unchanged from the prior exam. Other findings: Stable postsurgical changes. XR/XR chest 1V portable [id number] IMPRESSION: Minimal bibasilar atelectasis or scar. Radiation Dose CTDIVOL = (mGy): DLP = (mGy-cm) Dictated By:Vitaliy Summers MDSigned By:Vitaliy Summers MDSigned Date/Time:07/12/21 0514DD/ 0320 Discharge Plan Discharge Patient Disposition: Admitted As Inpatient Clinical Impression: Chest pain, Hypoxemia Condition: Stable Coding Level of Care Code ED Lead Network Engineer for Chg Fwd Exam Detailed
[2021-07-12] MEDS: iohexol 350 mg/mL 100 mL Btl IV (05:52)
[2021-07-12 06:05] LABS: Blood Gas Allen Test Pos; Blood Gas Sample Site Radial, right; Blood Gas Sample Type Arterial
[2021-07-12 06:51] LABS: Troponin 5 2HR 11.26 ng/L (0-15); Troponin 5 2HR Delta 0.26 ABS# (0-10)
[2021-07-12] MEDS: metoprolol tartrate 50 mg Tablet PO (09:12)
--- NOTE | 2021-07-12 09:20 | ECG_ITS ---
[facility] Test Date: 2021-07-12 Pat Name: Henry Perez Department: Room: Gender: Male Tribal Judge: : 1960 Requested By: Catrachito Pro Order Number: [id number] Nhi MD: Rich Ceron M.D. Measurements Intervals [place] Rate: 65 P: 52 MI: 267 QRS: 259 QRSD: 103 T: -34 QT: 386 QTc: 404 Interpretive Statements SINUS RHYTHM WITH FIRST DEGREE AV BLOCK POSSIBLE LEFT ATRIAL ENLARGEMENT [-0.1mV P-WAVE IN V1/V2] PATTERN CONSISTENT WITH PULMONARY DISEASE RIGHT VENTRICULAR HYPERTROPHY [SOME/ALL OF: PROMINENT R IN V1, LATE TRANSITION, RAD, MARILEE, SSS] ST DEVIATION AND MODERATE T-WAVE ABNORMALITY, CONSIDER INFERIOR ISCHEMIA [-0.1+ mV T-WAVE IN II/aVF] Compared to ECG 07/12/2021 06:29:27 T-wave abnormality now present Possible ischemia now present ST (T wave) deviation no longer present Electronically Signed On 07-12-2021 13:26:36 SECURITY ENGINEER by Rich Ceron M.D. [email or web address]The Dolan Companyprovidence [facility].[id number]
[2021-07-12 09:58] LABS: ABG PCO2 78.5 mmHg (35-45); ABG PH Result 7.35 (7.35-7.45); Arterial Blood Gas Hematocrit 42.5 % (42-52); Base Excess ABG 13.5 mmol/L (-2.0-2.0); Oxygen Device BIPAP; PO2 ABG 69.3 mmHg (80.0-100.0)
[2021-07-12 10:03] LABS: Troponin 5 6HR 9.11 ng/L (0-15)
[2021-07-12 10:35] LABS: Troponin 5 6HR Delta -1.89 ng/L (0-12)
[2021-07-12 11:41] LABS: Glucose Point of Care 124 mg/dL (70-110)
--- NOTE | 2021-07-12 13:43 | P.HP_ITS ---
Providers/Chief Complaint Admitting Physician: Ion Parks MD Primary Care Provider: Catarina Olsen, IN[employer] Chief Complaint: cp, chest pressure History of Present Illness Henry Perez is a 60 year old male with past medical history of hypertension, hyperlipidemia, type 2 diabetes mellitus, CAD post CABG, frequent VPCs/bigeminy is up to 37% on Holter monitor with recent cardiac angiogram on 06/05 which showed no significant coronary stenosis, SVG to RV branch, SVG to RCA patent, lesion in mid LAD which was evaluated by FFR found to be 0.86 which was not hemodynamically significant and was kept on medical treatment presented to the ER last night with complaint of difficulty in breathing. Patient states he has been having occasional difficulty in breathing which is always followed by chest pressure and few episodes of palpitations. Patient denies any chest pain, chest pressure at rest or baseline. States difficulty in breathing gets worse by exertion denies any PND or orthopnea. Complaining of bilateral lower leg swelling which states has been stable. Does have history of obstructive sleep apnea in the past for which he used to use CPAP but not using currently because he states he has been cured of sleep apnea since he lost weight. Blood work in the ER showed a white count of 8, hemoglobin of 16.3, D-dimer of 0.4, ABG showing a pH of 7.35, PCO2 of 78, PO2 of 69, chemistry showing a sodium of 140, chloride of 103, creatinine of 0.9, AST/ALT of 15/39, baseline troponin of 11 with delta of -0.1 0.8 in 6 hours, rapid COVID-[address] results a ppreciated as below. Review of Systems General: Reports: 10 or more systems reviewed and unremarkable except in HPI and below Const: Denies: fever(s), chills, body aches, change in appetite, change in weight, malaise, night sweats, diaphoresis, change in sleep pattern, daytime sleepiness or snoring Eyes: Denies: change in vision, blurry vision, photophobia, eye discomfort or eye discharge ENMT: Denies: throat pain, enlarged tonsils, hoarseness, mouth pain, oral sores, dry mouth, tinnitus, nasal congestion or post nasal drip Card: Denies: chest pain, palpitations, irregular heart rhythm, edema, swelling of feet/ankles, lightheadedness, syncope, pre-syncope, dyspnea on exertion, orthopnea, leg pain with exertion or acrocyanosis Resp: Denies: dyspnea, productive cough, non-productive cough, wheezing, stridor, pain on inspiration, change in phlegm color, hemoptysis or chest congestion GI: Denies: abdominal pain, nausea, vomiting, hematemesis, coffee ground emesis, dysphagia, heartburn, diarrhea, constipation, bloating, GI cramping, change in bowel habits, pain on defecation, hematochezia or melena : Denies: flank pain, difficulty urinating, dysuria, urinary frequency, urinary urgency, urinary hesitancy, urinary dribbling, difficulty starting urination, change in urine stream, nocturia or hematuria Musc: Denies: neck pain, back pain, extremity pain, joint pain, joint swelling, joint redness, joint stiffness or limited range of motion Neuro: Denies: headache(s), numbness in extremities, weakness in extremities, sensory changes, lack of coordination, difficulty walking, frequent falls, dizziness, vertigo, confusion, Slurred speech present, difficulty communicating thoughts or seizure-like activity Psych: Denies: anxiety, depression, mood swings, panic attacks, hopelessness or irritability Endo: Denies: polyuria, polydipsia, tired all the time, cold intolerance, ex cessive sweating, flushing or heat intolerance Kenn/Lymph: Denies: easy bruising or easy bleeding All/Imm: Denies: tongue swelling, facial swelling or acute wheezing Medications/Allergies Home Medications Medication Instructions Recorded Confirmed Last Taken Type aspirin 81 mg tablet,delayed 81 mg PO DAILY 12/24/19 07/12/21 07/11/21 History release cholecalciferol (vitamin D3) 125 10,000 unit PO DAILY cap 03/02/21 07/12/21 07/11/21 History mcg (5,000 unit) capsule docusate sodium 100 mg capsule 100 mg PO DAILY #90 cap 04/19/21 07/12/21 07/11/21 Rx levothyroxine 150 mcg tablet 150 mcg PO DAILY #90 tab 04/19/21 07/12/21 07/11/21 Rx lisinopril 5 mg tablet 5 mg PO DAILY #90 tab 04/19/21 07/12/21 07/11/21 Rx nitroglycerin 0.4 mg sublingual 0.4 mg SUBLINGUAL Q5M PRN #25 tab 04/19/21 07/12/21 Unknown Rx tablet pen needle, diabetic 33 gauge x #100 ea 04/19/21 07/12/21 Unknown Rx semaglutide 1 mg/dose (2 mg/1.5 1 mg SUBCUT .weekly #3 ml 04/19/21 07/12/21 07/11/21 Rx mL) subcutaneous pen injector spironolactone 25 mg tablet 25 mg PO DAILY #90 tab 04/19/21 07/12/21 07/11/21 Rx blood sugar diagnostic #50 each 05/20/21 07/12/21 Unknown Rx insulin detemir U-100 100 unit/mL See Rx Instructions SUBCUT DAILY 06/02/21 07/12/21 07/11/21 Rx (3 mL) subcutaneous pen #15 ml atorvastatin 20 mg PO BEDTIME 06/04/21 07/12/21 07/11/21 History isosorbide dinitrate 5 mg PO BID #60 tab 06/05/21 07/12/21 07/11/21 Rx metoprolol succinate 25 mg 25 mg PO DAILY #90 tab 06/09/21 07/12/21 07/11/21 Rx tablet,extended release 24 hr fenofibrate nanocrystallized 48 mg PO DAILY 07/12/21 07/12/21 07/11/21 History Allergies Allergy/AdvReac Type Severity Reaction Status Date / Time empagliflozin Allergy Intermediate Hives Verified 06/15/21 14:43 influenza virus vaccine ts Allergy Intermediate ALGY-Conges Verified 06/15/21 1 4:43 [id number] (36 mos,up) shun [From Fluarix] Penicillins Allergy Intermediate Hives Verified 06/15/21 14:43 glipizide Allergy ALGY-Rash Verified 06/15/21 14:43 PFSH Acute PFSH: Medical History (Updated 07/12/21 @ 13:48 by Ion Parks MD) Adult hypothyroidism CAD (coronary artery disease) Chest pressure CKD (chronic kidney disease), stage II Controlled diabetes mellitus with hyperglycemia, without long-term current use of insulin Frequent PVCs Mixed hyperlipidemia Obstructive sleep apnea Slow transit constipation Vitamin D insufficiency Surgical History (Updated 07/12/21 @ 13:48 by Ion Parks MD) History of coronary artery bypass graft 2 grafts in 2007 Family History Other CAD (coronary artery disease) Diabetes Hypertension Denies family history of Bleeding disorder Social History Second hand smoke exposure: No Smoking risk assessment/counseling performed?: No Alcohol intake: never Desire information about alcohol rehabilitation?: No Counseling given: No Desire information about substance/drug rehabilitation?: No Counseling given: No Caregiver/support person: No Lives independently: Yes Household members: significant other Housing: House Marital status: Single service: No Current occupational status: unemployed History of recent travel: No Current gender identity: Male Vitals/I&O/Wt Last Vital Signs Temp 97 F L 07/12/21 02:32 Pulse 78 07/12/21 12:27 Resp 22 H 07/12/21 12:27 BP 112/68 07/12/21 12:27 Pulse Ox 94 07/12/21 12:27 Weight last 48 hrs Weight 154.221 kg Physical Exam Narrative: EXAM NARRATIVE: General: No acute distress, AO x3, on 4 L oxygen supplementation saturating 94% sitting up in bed HEENT: PERRLA, pupils bilaterally equal and reactive Chest: Bilateral bronchial breath sounds, occasional rhonchi over the lung wong, fine crackles present in lower zone, equal good air entry bilaterally CVS: S1-S2 regular, occasional missed beats, soft pansystolic murmur present in apex, no tachycardia, no gallops, no rubs Abdomen: Soft, nontender, no organomegaly, bowel sounds present Neuro: No focal deficits, no facial deformity, AO x3, power 5/5 in all limbs Data : 07/12/21 03:03 07/12/21 03:03 A&P Assessment and plan (1) Frequent PVCs: Status: Acute (2) Hypoxemia: Status: Acute (3) Chest pressure: Status: Acute (4) CAD (coronary artery disease): Status: Acute (5) History of coronary artery bypass graft: Status: Acute (6) CKD (chronic kidney disease), stage II: Status: Acute (7) Controlled diabetes mellitus with hyperglycemia, without long-term current use of insulin: Status: Acute Qualifiers: Diabetes mellitus type: type 2 Qualified Code(s): E11.65 - Type 2 diabetes mellitus with hyperglycemia (8) Obstructive sleep apnea: Status: Acute Additional A&P Information Hypoxia: Most likely a combination of CHF and possible COPD exacerbation. Patient does give history of sleep apnea in the past not on CPAP anymore. CHF most likely secondary to frequent VPCs in setting of baseline CAD. Keep saturation over 88%. Check echocardiogram. IV Lasix 40 mg every 24 hour. Continue home dose of spironolactone. Daily weights, strict input output charting, fluid restriction 1500 cc. DuoNebs every 6 hours, budesonide twice daily. Hold off on steroids for now. Less likely pneumonia. No consolidation on CT. For now hold off on antibiotics. If patient spikes fever will add. Check sputum culture, urine Legionella bacterial antigen. Check flu swab. COVID-19 PCR sent out from ER. Isolation precautions. Chest pressure: Unlikely secondary to CAD. Troponin cycle negative. Most likely secondary to possible congestive heart failure. Recent cardiac catheterization noted. Continue to monitor. Continue with home dose of aspirin, statin, fenofibrate, isosorbide, metoprolol. Frequent PVCs: Patient to follow-up as an outpatient with patient observation assistant for possible ablation. Continue metoprolol. Telemetry. Might have to go higher on metoprolol dose depending on VPC burden within next 24 hours. Continue other chronic medications. Hypertension: Goal blood pressure less than 140/90 mmHg. Continue home dose of antihypertensives. Full code. Cardiac carb consistent diet. Lovenox for DVT prophylaxis. Protonix for PUD prophylaxis. Attestations Medical Necessity Statement*: Admission for more than 2 midnights for evalua tion and management of hypoxia most likely secondary to congestive heart failure in setting of baseline CAD/post CABG with frequent VPCs Time Spent in Patient Care: Greater than 35 minutes (>than 50% of time spent in counselling and/or direct pt care on unit) . 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
[2021-07-12 14:37] LABS: Add Urine Microscopic? NO; Charge for UA Resulting for Rev
[2021-07-12 14:42] LABS: Bilirubin Urine Neg (Negative); Blood Urine Neg (Negative); Glucose Urine UA Norm (Normal); Ketones Urine Negative (Negative); Leukocyte Esterase Urine Negative (Negative); Nitrate Urine Negative (Negative); Protein Urine Neg (Negative); Specific Gravity, Urine 1.015 (1.005-1.030); Urine Appearance Clear (CLEAR); Urine Color Straw (Yellow); Urobilinogen Urine Norm (Negative); pH Urine 5 (5-7)
[2021-07-12 14:55] LABS: Potassium, Radom Urine 40 mmol/L; Urine Random Chloride 77 mmol/L; Urine Random Sodium 76 mmol/L
[2021-07-12 14:55] LABS: Procalcitonin 0.02 ng/mL (0-0.5); Thyroid Stimulating Hormone 5.41 uIU/mL (0.27-4.20)
[2021-07-12] MEDS: enoxaparin 40 mg/0.4 mL Syringe SUBCUT (14:55)
[2021-07-12] MEDS: FUROsemide 10 mg/mL SDV 4mL 40 MG IVP (14:55)
[2021-07-12] MEDS: famotidine 20 mg/2 mL INJ IVP (14:55)
[2021-07-12 15:06] LABS: Iron 77 ug/dL (59-158); Percent Saturation 22.6 % (20-50); Total Iron Binding Capacity 340 mcg/dl; Unsaturated Iron Binding 263 ug/dL (112-347)
[2021-07-12 15:39] LABS: Influenza A by IFA Negative (Negative); Influenza B by IFA Negative (Negative)
[2021-07-12 17:02] LABS: Free T4 Free Thyroxine 1.04 ng/dL (0.82-1.77); T3 Free 2.3 PG/ML (2.0-4.4)
--- NOTE | 2021-07-12 18:00 | PC.NURSE ---
Addendum entered by Arely Quintanilla RN 07/12/21 20:07: Pt has had first degree AV block w/ HR of upper 60s. on 4 L nasal cannula. cold fingers and toes. pt has old scars on chest and left leg. pt stated no BP on left arm since we can't get any reading due to previous harvest graft for cabg. Original Note: Shift Note Frequent safety and comfort rounds continue. Orders and/or nursing care completed as indicated. Patient monitored for response to intervention and treatment(s). Education provided includes oxygen safety, telemetry monitoring. Patient and/or food service sales representatives verbaliZes understanding. Will continue to monitor.
[2021-07-12 18:02] LABS: Glucose Point of Care 128 mg/dL (70-110)
[2021-07-12] MEDS: ferrous gluconate 324 mg Tablet PO (18:35)
--- NOTE | 2021-07-12 19:57 | PC.NURSE ---
Received report from CLAUDIA Valdez. Patient resting in bed with eyes closed. Eyes spontaneously with verbal stimuli. Patient denies chest pain or pressure presently. Discussed insulin dosing with patient. Patient stated, I take my long acting insulin every morning. I do not want to take at night. Currently refusing to take SS insulin due to current BS of 155 which would require him to receive 2 units. Patient again stated, I will just wait until the morning and see.
[2021-07-12 20:17] LABS: Glucose Point of Care 155 mg/dL (70-110)
[2021-07-12] MEDS: atorvastatin 40 mg Tablet 20 MG PO (20:52)
[2021-07-12] MEDS: ipratropium-albuterol 3 mL Neb INHALATION ×2 (21:44→21:45)
[2021-07-12] MEDS: budesonide 0.5 mg/2 mL Neb INHALATION (21:45)
--- NOTE | 2021-07-12 23:46 | PC.NURSE ---
Addendum entered by Amee Gonzalez RN 07/12/21 23:59: Informed Dr Garay. Doctor here on the floor. Assessed patient and doctor is ok with SpO2 at decreased levels stating, this is probably his baseline. Will continue to monitor. Original Note: Noted patient to have low SpO2 81-86% on 5L NC currently. Patient denies any discomfort stating, I feel like I always do. I don't feel short of breath. Patient has history of JACINTO of which he does NOT wear CPAP at home. He also does not have or use home oxygen. Informed RT. RT to see patient. Will continue to monitor.
[2021-07-13] VITALS (16 sets, daily range): BP systolic 103–126; BP diastolic 53–92; PULSE 69–85; RESP 16–26; TEMP 36.6–36.8; O2SAT 89–94
[2021-07-13] MEDS: famotidine 20 mg/2 mL INJ IVP ×2 (01:01→15:02)
--- NOTE | 2021-07-13 01:10 | PC.NURSE ---
Noted patient to have SpO2 decreasing to upper 60s. Woke patient and had a discussion about his low oxygen. Patient stated, that ain't nothing, at home I have seen my oxygen as low as in the 40s and sometimes my meter just reads low . Instructed patient on significance of decreased oxygen related to his heart health and increased potential for cardiac arrest. Patient verbalized understanding. RT at bedside. Patient agreeable to use oxymask at this time stating, that is the kind of mask I wore when I wore a mask for my sleep apnea. Patient SpO2 currently 90-93%.
[2021-07-13] MEDS: ipratropium-albuterol 3 mL Neb INHALATION ×4 (03:45→21:16)
--- NOTE | 2021-07-13 04:57 | PC.NURSE ---
Shift Note Frequent safety and comfort rounds continue. Orders and/or nursing care completed as indicated. Patient monitored for response to intervention and treatment(s). Education provided includes oxymask and oxygen use. Patient verbalized complete understanding. Achieved better SpO2 levels with the use of oxymask especially during sleep. Patient able to maintain SpO2 on NC while awake. SpO2 86-93%. Patient denies any pain this morning and reports feeliing much better. No distress observed. Will continue to monitor.
[2021-07-13 06:09] LABS: Basophils % 0.4 %; Eosinophils # 0.1 10^3/uL (0.0-0.8); Eosinophils % 1.5 %; Hemoglobin 15.7 g/dL (11.7-16.6); Lymphocytes # 1.3 10^3/uL (0.8-4.8); Mean Corpuscular HGB Conc 30.2 g/dL (30.0-36.0); Mean Corpuscular Hemoglobin 31.4 pg (28.0-34.0); Mean Platelet Volume 10.2 fL (7.4-10.4); Monocytes # 0.9 10^3/uL (0.2-0.9); Monocytes % 10.3 %; Neutrophils # 6.53 10^3/uL (1.8-7.7); Neutrophils % 73.5 %; Nucleated Red Blood Cells % 0 %; Platelet Count 196 10^3/cmm (130-400); Red Cell Distribution Width 14.7 % (12.1-15.1); White Blood Count 8.9 10^3/uL (4.0-10.0)
[2021-07-13 06:36] LABS: Alanine Aminotransferase 26 U/L (0-41); Albumin Level 3.7 g/dL (3.5-5.2); Alkaline Phosphatase 78 IU/L (40-130); Anion Gap 17.8 (5-19); Aspartate Amino Transferase 11 U/L (0-40); Blood Urea Nitrogen 14 mg/dL (8-23); Calcium 8.4 mg/dL (8.5-10.5); Carbon Dioxide 28 mmol/L (22-29); Chloride 99 mmol/L (98-107); Creatinine Clr Calc Pharmacy 148.5044; Globulin 2.3 g/dL (1.3-4.6); Glucose 137 mg/dL (65-115); Osmolality Calculated 293 mOsm/kg (285-295); Potassium 4.8 mmol/L (3.5-5.1); Sodium 140 mmol/L (136-145); Total Bilirubin 0.6 mg/dL (0.15-1.2)
[2021-07-13 06:37] LABS: Magnesium 1.8 mg/dL (1.7-2.3); Phosphorus 3.3 mg/dL (2.5-4.5)
[2021-07-13 06:38] LABS: Chol HDL Ratio 4.14 mg/dL (1.0-5.00); Cholesterol 116 mg/dL (0-200); HDL Cholesterol 28 mg/dL (60-100); LDL Cholesterol Calculated 58 mg/dL (50-129); Triglycerides 148 mg/dL (0-150); VLDL Cholestrol Calculation 30 mg/dL (0-30)
[2021-07-13 06:42] LABS: Glucose Point of Care 136 mg/dL (70-110)
[2021-07-13 06:53] LABS: Estmated Average Glucose 171; Hemoglobin A1C 7.6 % (4.0-6.0)
[2021-07-13] MEDS: metoprolol succinate ER (24 HR) 25 mg Tablet PO (08:10)
[2021-07-13] MEDS: levothyroxine 150 mcg Tablet PO (08:10)
[2021-07-13] MEDS: ferrous gluconate 324 mg Tablet PO ×2 (08:10→19:08)
[2021-07-13] MEDS: spironolactone 25 mg Tablet PO (08:10)
[2021-07-13] MEDS: lisinopril 5 mg Tablet PO (08:11)
[2021-07-13] MEDS: aspirin 81 mg EC Tablet PO (08:11)
[2021-07-13] MEDS: docusate sodium 100 mg Capsule PO (08:11)
[2021-07-13] MEDS: budesonide 0.5 mg/2 mL Neb INHALATION ×2 (08:56→21:16)
--- NOTE | 2021-07-13 10:21 | PC.CHAP ---
Pastoral Care Encounter/Spiritual Assessment Type of Contact [] Declined shell mold bonder visit [] Patient/Family/Request visit [] Outpatient visit [] Follow-up visit [] Physician referral [] Code/Alert [x] Routine visit [] Staff referral [] Actively dying [] Patient sleeping [] Family support [] [] Out of room [] Palliative care [] [] Receiving care in room [] Pre-surgical visit [] Trauma [] Long length of stay [] ICU visit [] Other: Relational/Emotional Strength [] Patient feels connected with others/family/visitors/staff [] Distress [] Loneliness/isolation [] Abandonment Spirituality of Patient [] Person of Rere [] Attends Latter-Day of their Rere [] Believes in Prayer [] Reads Bible or Pentecostal materials [] There are Spiritual issues to be addressed Community Case Manager Interventions [x] Prayer [x] Active listening x[] Non-anxious presence [x] Spiritual/emotional support [] Crisis/trauma care [] Spiritual counseling [] Bereavement support [] Provided bereavement packet [] Provided Bible/devotional materials [] Provided toy/stuffed animal, coloring book to patient or family member [] Provided Communion [] Anointing/[place] [] Salvation [x] Completed spiritual assessment [] Other: Impact on Illness or Injury [] Angry [] Fearful [] Anxious [] Often cries [] Exhaustion [] Unable to work [] Unable to attend denominational [] Unable to walk/stand [] Unable to read [] Unable to drive [] Unable to eat/drink [] Unable to sleep [] Unable to be with family [] Patient intubated [] Other: Summary patient feeling better waiting for more info Time spent with patient 5 min
[2021-07-13] MEDS: insulin glargine 100 units/1 mL 40 UNIT SUBCUT (10:52)
[2021-07-13 11:36] LABS: Glucose Point of Care 154 mg/dL (70-110)
[2021-07-13] MEDS: insulin lispro 100 unit/1 mL SUBCUT (12:37)
[2021-07-13] MEDS: enoxaparin 40 mg/0.4 mL Syringe SUBCUT (15:02)
[2021-07-13 17:22] LABS: Quest SARS-CoV-2 RNA NOT DETECTED (NOT DETECTED)
--- NOTE | 2021-07-13 17:38 | P.PN_ITS ---
Subjective Subjective: Interval history: Earlier today having chest pressure, worse with taking a deep breath. Denies positional changes/worsening when supine. Denies worsening with moving his arms or torso. Denies cough. No phlegm production. Vitals/I&O/Wt Last Vital Signs Temp 98.0 F 07/13/21 16:00 Pulse 79 07/13/21 14:30 Resp 18 07/13/21 14:25 BP 126/61 07/13/21 08:00 Pulse Ox 93 07/13/21 14:25 07/13/21 07/13/21 07/13/21 06:59 14:59 22:59 Intake Total 150 / 390 700 / 700 Balance 150 / 390 700 / 700 Weight last 48 hrs Weight 154.312 kg Weight 154.221 kg Physical Exam Const: COMMON NORMALS: no acute distress, patient oriented x3 and alert GENERAL APPEARANCE: cooperative NUTRITIONAL APPEARANCE: obese ORIENTATION/CONSCIOUSNESS: Yes awake HENMT: COMMON NORMALS: oropharynx normal Neck/C-Spine: COMMON NORMALS: no JVD Resp: COMMON NORMALS: normal respiratory effort and clear to auscultation bilaterally AUSCULTATION: clear to auscultation bilaterally and crackles Laterality: bilateral (base) Cardio: COMMON NORMALS: no JVD, regular rhythm, S1 normal heart sound present, S2 normal heart sound present and No murmurs present (Cardio) RHYTHM: regular rhythm HEART SOUNDS: S1 normal heart sound present and S2 normal heart sound present GI: COMMON NORMALS: Normal to inspection, nondistended, normoactive bowel sounds present, Soft to palpation and non-tender PALPATION: Yes Soft to palpation Extremity: COMMON NORMALS: no joint enlargement GENERAL: Yes edema (2+) Neuro: COMMON NORMALS: patient oriented x3 and moves all extremities SENSORIUM/ORIENTATION: Yes alert Skin: COMMON NORMALS: no rashes or lesions noted GENERAL SKIN EXAM: no rashes or lesions noted Data : 07/13/21 05:04 07/13/21 05:04 Micro: Microbiology 07/12/21 14:15 MRSA Culture - Final Nose 07/12/21 14:15 Bacterial Antigens - Final Urine Kidney 07/12/21 14:15 Legionella Urinary Antigen - Final Urine,Voided A&P Assessment and plan (1) Hypoxemia: Requiring 5 L by nasal cannula. More coarse/crackly sounding bases. 2+ peripheral edema. Blood pressure low this afternoon, Lasix in the afternoon cut down to 20 mg dose for now. Monitor blood pressure, resume diuresis as tolerating. Hold lisinopril, metoprolol for now, monitor blood pressures, resume depending on how he is doing. Follow-up TTE Discussed with him, and treated sleep apnea may also contribute to pulmonary edema, CHF exacerbation. He reports stopped using CPAP in 2009 after his sleep apnea had resolved. Has not had any reassessment. Could be contributing to his arrhythmias as well. Discussed with him would benefit from repeat sleep study. He verbalized understanding agreement. Less likely pneumonia. Rapid flu negative. COVID-19 rapid and PCR negative. MRSA PCR negative. Negative urine bacterial antigens. Status: Acute (2) Frequent PVCs: Last night at 10 PM also noted some dropped beats, possibly Mobitz type II, but difficult to tell. Continue telemetry monitoring at this time. Hold metoprolol for now. Next dose tomorrow morning, will adjust depending on findings on the monitor. Pending EP follow-up for ablation due to frequent PVCs Status: Acute (3) Chest pressure: Continue diuresis as tolerating. No PE on CTA. Possibly due to fluid overload, with some pleuritic component. Follow-up TTE Status: Acute (4) CAD (coronary artery disease): Status: Acute (5) History of coronary artery bypass graft: Status: Acute (6) CKD (chronic kidney disease), stage II: Status: Acute (7) Controlled diabetes mellitus with hyperglycemia, without long-term current use of insulin: Status: Acute Qualifiers: Diabetes mellitus type: type 2 Qualified Code(s): E11.65 - Type 2 diabetes mellitus with hyperglycemia (8) Obstructive sleep apnea: Would benefit from repeat sleep study. Status: Acute Additional A&P Information Hypertension: Continue home dose of antihypertensives. Attestations Medical Necessity Statement*: Continue admission for assessment of management of hypoxic respiratory failure, congestive heart failure, arrhythmias. 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
[2021-07-13 18:12] LABS: Glucose Point of Care 100 mg/dL (70-110)
[2021-07-13] MEDS: FUROsemide 10 mg/mL SDV 2mL 20 MG IVP (19:08)
--- NOTE | 2021-07-13 19:51 | PC.NURSE ---
Received report from CLAUDIA Valdez. Patient resting in bed watching TV. Denies pain. No distress observed. Discussed fluid intake. Patient reports drinking a lot of water everyday. Instructed patient to drink when thirsty and not to force fluids. Patient verbalized understanding but will require much reinforcement. Will continue to monitor.
--- NOTE | 2021-07-13 20:12 | PC.NURSE ---
Shift Note Frequent safety and comfort rounds continue. Orders and/or nursing care completed as indicated. Patient monitored for response to intervention and treatment(s). Education provided includes oxygen and telemetry monitoring, iv lasix decrease. Patient and/or outreach representative . Will continue to monitor.
[2021-07-13] MEDS: atorvastatin 40 mg Tablet 20 MG PO (20:45)
[2021-07-13 20:47] LABS: Glucose Point of Care 131 mg/dL (70-110)
[2021-07-14] VITALS (15 sets, daily range): BP systolic 100–130; BP diastolic 65–83; PULSE 65–94; RESP 12–25; TEMP 36.6; O2SAT 88–96
[2021-07-14] MEDS: ipratropium-albuterol 3 mL Neb INHALATION ×4 (02:44→20:47)
[2021-07-14] MEDS: famotidine 20 mg/2 mL INJ IVP ×2 (03:03→14:38)
[2021-07-14 04:17] LABS: Basophils % 0.4 %; Eosinophils # 0.1 10^3/uL (0.0-0.8); Eosinophils % 1.2 %; Hematocrit 48.7 % (42.0-52.0); Hemoglobin 15.4 g/dL (11.7-16.6); Lymphocytes # 1.8 10^3/uL (0.8-4.8); Mean Corpuscular HGB Conc 31.6 g/dL (30.0-36.0); Mean Corpuscular Hemoglobin 32.3 pg (28.0-34.0); Mean Corpuscular Volume 102.1 fl (80-94); Mean Platelet Volume 10.1 fL (7.4-10.4); Monocytes # 0.9 10^3/uL (0.2-0.9); Monocytes % 10.9 %; Neutrophils # 5.56 10^3/uL (1.8-7.7); Neutrophils % 66.3 %; Nucleated Red Blood Cells % 0 %; Platelet Count 192 10^3/cmm (130-400); Red Blood Count 4.77 10^6/uL (4.1-5.3); Red Cell Distribution Width 14.8 % (12.1-15.1); White Blood Count 8.4 10^3/uL (4.0-10.0)
[2021-07-14 04:33] LABS: Anion Gap 18.1 (5-19); Blood Urea Nitrogen 17 mg/dL (8-23); Calcium 8.6 mg/dL (8.5-10.5); Carbon Dioxide 27 mmol/L (22-29); Chloride 97 mmol/L (98-107); Glomerular Filtration Rate 85.5 mL/min (90-130); Glucose 114 mg/dL (65-115); Osmolality Calculated 288 mOsm/kg (285-295); Potassium 4.1 mmol/L (3.5-5.1); Sodium 138 mmol/L (136-145)
--- NOTE | 2021-07-14 05:36 | PC.NURSE ---
Shift Note Frequent safety and comfort rounds continue. Orders and/or nursing care completed as indicated. Patient monitored for response to intervention and treatment(s). Education provided includes oxygen. Patient verbalized complete understanding. Patient agreeable to possible sleep study. Patient does have significant decrease in SpO2 while asleep noted to decrease as low as 44%. Patient recovers quickly with use of oxymask during sleep at 5L. Patient denies any symptoms related to decrease in SpO2. Patient denies pain or needs. No other distresses observed. Will continue to monitor.
[2021-07-14 06:57] LABS: Glucose Point of Care 114 mg/dL (70-110)
[2021-07-14] MEDS: ferrous gluconate 324 mg Tablet PO ×2 (08:38→18:49)
[2021-07-14] MEDS: docusate sodium 100 mg Capsule PO (08:38)
[2021-07-14] MEDS: levothyroxine 150 mcg Tablet PO (08:38)
[2021-07-14] MEDS: spironolactone 25 mg Tablet PO (08:38)
[2021-07-14] MEDS: insulin glargine 100 units/1 mL 40 UNIT SUBCUT (08:38)
[2021-07-14] MEDS: aspirin 81 mg EC Tablet PO (08:38)
[2021-07-14] MEDS: fenofibrate 48 mg Tablet PO (08:40)
[2021-07-14] MEDS: budesonide 0.5 mg/2 mL Neb INHALATION ×2 (08:44→20:47)
[2021-07-14 11:17] LABS: Glucose Point of Care 152 mg/dL (70-110)
[2021-07-14] MEDS: insulin lispro 100 unit/1 mL SUBCUT ×2 (12:45→20:49)
[2021-07-14] MEDS: enoxaparin 40 mg/0.4 mL Syringe SUBCUT (14:39)
--- NOTE | 2021-07-14 15:40 | P.PN_ITS ---
Subjective Subjective: Interval history: Discussed with him low blood pressures yesterday. Today blood pressures are doing better. He denies chest pain or pressure. Persistently hypoxic, but denies trouble breathing with the nasal cannula. Vitals/I&O/Wt Last Vital Signs Temp 97.9 F 07/14/21 04:00 Pulse 72 07/14/21 14:58 Resp 20 H 07/14/21 14:54 BP 130/83 07/14/21 13:53 Pulse Ox 91 07/14/21 14:54 07/14/21 07/14/21 07/14/21 06:59 14:59 22:59 Intake Total 236 / 236 Output Total 1300 / 2000 900 / 900 Balance -1300 / -190 -664 / -664 Weight last 48 hrs Weight 158.122 kg Weight 154.312 kg Physical Exam Const: COMMON NORMALS: no acute distress, patient oriented x3 and alert GENERAL APPEARANCE: cooperative NUTRITIONAL APPEARANCE: obese ORIENTATION/CONSCIOUSNESS: Yes awake HENMT: COMMON NORMALS: oropharynx normal Neck/C-Spine: COMMON NORMALS: no JVD Resp: COMMON NORMALS: normal respiratory effort and clear to auscultation bilaterally AUSCULTATION: clear to auscultation bilaterally and crackles Laterality: bilateral (base) Cardio: COMMON NORMALS: no JVD, regular rhythm, S1 normal heart sound present, S2 normal heart sound present and No murmurs present (Cardio) RHYTHM: regular rhythm HEART SOUNDS: S1 normal heart sound present and S2 normal heart sound present GI: COMMON NORMALS: Normal to inspection, nondistended, normoactive bowel soun ds present, Soft to palpation and non-tender PALPATION: Yes Soft to palpation Extremity: COMMON NORMALS: no joint enlargement GENERAL: Yes edema (2+) Neuro: COMMON NORMALS: patient oriented x3 and moves all extremities SENSORIUM/ORIENTATION: Yes alert Skin: COMMON NORMALS: no rashes or lesions noted GENERAL SKIN EXAM: no rashes or lesions noted Data : 07/14/21 03:20 07/14/21 03:20 Micro: Microbiology 07/12/21 14:15 MRSA Culture - Final Nose A&P Assessment and plan (1) Hypoxemia: Blood pressures improved. Blood pressure medications adjusted. Held amlodipine, metoprolol at this time. Continue to monitor heart rates. Resuming diuresis with 40 mg IV every 12 hours Lasix. Requiring 6 L by nasal cannula. More coarse/crackly sounding bases. 2+ peripheral edema. Blood pressure low this afternoon, Lasix in the afternoon cut down to 20 mg dose for now. Monitor blood pressure, resume diuresis as tolerating. Hold lisinopril, metoprolol for now, monitor blood pressures, resume depending on how he is doing. Follow-up TTE - reordered Discussed with him, and treated sleep apnea may also contribute to pulmonary edema, CHF exacerbation. He reports stopped using CPAP in 2009 after his sleep apnea had resolved. Has not had any reassessment. Could be contributing to his arrhythmias as well. Discussed with him would benefit from repeat sleep study. He verbalized understanding agreement. Less likely pneumonia. Rapid flu negative. COVID-19 rapid and PCR negative. MRSA PCR negative. Negative urine bacterial antigens. Status: Acute (2) Frequent PVCs: For now metoprolol on hold. Continue telemetry monitoring. Re-ordered TTE Also noted some dropped beats, possibly Mobitz type II, but difficult to tell. Continue telemetry monitoring at this time. Pending EP follow-up for ablation due to frequent PVCs Status: Acute (3) Chest pressure: Resolved. Continue diuresis as tolerating. No PE on CTA. Possibly due to fluid overload, with some pleuritic component. Follow-up TTE Status: Acute (4) CAD (coronary artery disease): Status: Acute (5) History of coronary artery bypass graft: Status: Acute (6) CKD (chronic kidney disease), stage II: Status: Acute (7) Controlled diabetes mellitus with hyperglycemia, without long-term current use of insulin: Status: Acute Qualifiers: Diabetes mellitus type: type 2 Qualified Code(s): E11.65 - Type 2 diabetes mellitus with hyperglycemia (8) Obstructive sleep apnea: Would benefit from repeat sleep study. Status: Acute Additional A&P Information Hypertension: Continue home dose of antihypertensives. Attestations Medical Necessity Statement*: Continue admission for assessment management of acute CHF, acute hypoxic respiratory failure. 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
[2021-07-14 16:19] LABS: Glucose Point of Care 98 mg/dL (70-110)
[2021-07-14] MEDS: FUROsemide 10 mg/mL SDV 4mL 40 MG IVP (17:34)
[2021-07-14] MEDS: atorvastatin 40 mg Tablet 20 MG PO (20:41)
[2021-07-14 20:55] LABS: Glucose Point of Care 184 mg/dL (70-110)
[2021-07-15] VITALS (19 sets, daily range): BP systolic 109–151; BP diastolic 71–86; PULSE 76–103; RESP 14–22; TEMP 36.4–36.8; O2SAT 90–97
[2021-07-15] MEDS: ipratropium-albuterol 3 mL Neb INHALATION ×4 (02:23→21:08)
[2021-07-15] MEDS: famotidine 20 mg/2 mL INJ IVP ×2 (04:06→16:22)
[2021-07-15] MEDS: FUROsemide 10 mg/mL SDV 4mL 40 MG IVP ×2 (04:06→16:23)
[2021-07-15 04:17] LABS: Basophils % 0.4 %; Eosinophils # 0.1 10^3/uL (0.0-0.8); Eosinophils % 1.8 %; Hematocrit 49.3 % (42.0-52.0); Hemoglobin 15.7 g/dL (11.7-16.6); Lymphocytes # 1.5 10^3/uL (0.8-4.8); Lymphocytes % 19.7 %; Mean Corpuscular HGB Conc 31.8 g/dL (30.0-36.0); Mean Corpuscular Volume 100.6 fl (80-94); Mean Platelet Volume 9.6 fL (7.4-10.4); Monocytes # 0.8 10^3/uL (0.2-0.9); Monocytes % 10.3 %; Neutrophils # 5.29 10^3/uL (1.8-7.7); Neutrophils % 67.5 %; Nucleated Red Blood Cells % 0 %; Platelet Count 194 10^3/cmm (130-400); Red Cell Distribution Width 14.8 % (12.1-15.1); White Blood Count 7.8 10^3/uL (4.0-10.0)
[2021-07-15 04:40] LABS: Anion Gap 16.2 (5-19); Blood Urea Nitrogen 14 mg/dL (8-23); Calcium 9.3 mg/dL (8.5-10.5); Carbon Dioxide 31 mmol/L (22-29); Chloride 98 mmol/L (98-107); Creatinine Clr Calc Pharmacy 150.5682; Glucose 142 mg/dL (65-115); Osmolality Calculated 295 mOsm/kg (285-295); Potassium 4.2 mmol/L (3.5-5.1); Sodium 141 mmol/L (136-145)
--- NOTE | 2021-07-15 06:00 | XR_ITS ---
WS: [id number] Exam: XR chest 1V portable [id number] Date/Time of Exam: 07/15/2021 6:12 AM Reason For Exam: Hypoxia Comparison 08/13/2018. Chronic right basal changes are noted. No acute infiltrates are noted. The lungs are fully inflated. Heart size is normal. No pleural effusions. The mediastinum is not widened. Signs of previous median sternotomy. Bony structures are intact. XR/XR chest 1V portable [id number] IMPRESSION: 1. Chronic right basal changes. No acute cardiopulmonary finding. No change.
--- NOTE | 2021-07-15 06:30 | USCV_ITS ---
Henry Perez Age: 60 Gender: M : 1960 Exam Date: 07/15/2021 07:05 Ordering Phys: Osvaldo Alicea MD Technologist: Exam Location: [facility] – [place] Indication: HX PR BP: 117 / 71 HR: 84 Rhythm: Sinus Technical Quality: Adequate MEASUREMENTS (Male / Female) Normal Values 2D ECHO LV Diastolic Diameter PLAX 4.2 cm 4.2 - 5.9 / 3.9 - 5.3 cm LV Systolic Diameter PLAX 3.0 cm IVS Diastolic Thickness 1.1 cm 0.6 - 1.0 / 0.6 - 0.9 cm IVS Systolic Thickness 1.8 cm LVPW Diastolic Thickness 1.5 cm 0.6 - 1.0 / 0.6 - 0.9 cm LVPW Systolic Thickness 1.4 cm LVOT Diameter 2.0 cm LV Ejection Fraction 2D Teich 55.5 % LA Diameter 3.6 cm LA Width 3.8 cm LA Height 6.1 cm RA Width 0.0 cm RA Height 4.9 cm Aorta at Sinotubular Diameter 2.7 cm M-MODE Aortic Annulus Diameter 3.7 cm LA Ao Ratio MM 1.0 MV E Point Septal Separation 1.1 cm DOPPLER AV Peak Velocity 111.0 cm/s LVOT Peak Velocity 80.0 cm/s AV Area Cont Eq vti 2.8 cm squared AV Area Cont Eq pk 2.3 cm squared MV Area PHT 5.0 cm squared Mitral E to A Ratio 1.1 MV E' Velocity 41.4 cm/s Mitral E to MV E' Ratio 6.3 Mitral E to LV E' Lateral Ratio 6.7 Mitral E to LV E' Septal Ratio 6.0 TR Peak Velocity 168.7 cm/s TR Peak Gradient 11.4 mmHg TV Peak E Velocity 89.0 cm/s Right Atrial Pressure 3.0 mmHg Pulmonary Artery Systolic Pressu 14.4 mmHg PV Peak Velocity 95.0 cm/s FINDINGS Left Ventricle Normal left ventricular cavity size. Normal left ventricular systolic function. Left ventricular ejection fraction is estimated at 55%. There appeared to be septal bounce which could be secondary interventricular conduction delay.Grade I/IV diastolic dysfunction (abnormal relaxation filling pattern), normal to mildly elevated filling pressures. Right Ventricle The right ventricle is normal in size and function. Right Atrium The right atrium is normal in size. Left Atrium The left atrium is normal in size. Mitral Valve Structurally normal mitral valve without significant stenosis or prolapse. There is no mitral regurgitation. Aortic Valve Moderate aortic valve calcification. No aortic valve stenosis. No aortic valve regurgitation. Tricuspid Valve Structurally normal tricuspid valve without significant stenosis or regurgitation. Pulmonary artery systolic pressure is normal. Pulmonic Valve Structurally normal pulmonic valve without significant stenosis. There is no pulmonic regurgitation. Pericardium Normal pericardium without effusion. Aorta Normal ascending aorta dimension. CONCLUSIONS 1-Normal left ventricular cavity size. Normal left ventricular systolic function. Left ventricular ejection fraction is estimated at 55%. There appeared to be septal bounce which could be secondary interventricular conduction delay.Grade I/IV diastolic dysfunction (abnormal relaxation filling pattern), normal to mildly elevated filling pressures. 2-Moderate aortic valve calcification. No aortic valve stenosis. No aortic valve regurgitation. 3-Structurally normal mitral valve without significant stenosis or prolapse. There is no mitral regurgitation. 4-There is no pericardial effusion. 5-Due to poor quality on the prior images cannot compare it with previous studies Andrea Bhakta MD (Electronically Signed) Final Date: 15 July 2021 22:46 S
[2021-07-15 07:19] LABS: Glucose Point of Care 132 mg/dL (70-110)
[2021-07-15] MEDS: ferrous gluconate 324 mg Tablet PO ×2 (07:33→18:22)
[2021-07-15] MEDS: insulin glargine 100 units/1 mL 40 UNIT SUBCUT (07:33)
[2021-07-15] MEDS: spironolactone 25 mg Tablet PO (08:20)
[2021-07-15] MEDS: docusate sodium 100 mg Capsule PO (08:20)
[2021-07-15] MEDS: aspirin 81 mg EC Tablet PO (08:20)
[2021-07-15] MEDS: levothyroxine 150 mcg Tablet PO (08:21)
[2021-07-15] MEDS: fenofibrate 48 mg Tablet PO (08:21)
[2021-07-15] MEDS: budesonide 0.5 mg/2 mL Neb INHALATION ×2 (09:14→21:08)
--- NOTE | 2021-07-15 09:35 | PC.SOCIAL ---
Pg 2 IMM Explained to pt Pg 2 IMM. No questions voiced. Provided pt a copy. Initialed, dated, & timed a copy & placed in chart.
[2021-07-15 11:48] LABS: Glucose Point of Care 142 mg/dL (70-110)
[2021-07-15] MEDS: insulin lispro 100 unit/1 mL SUBCUT ×3 (12:16→20:45)
[2021-07-15] MEDS: bisacodyl 5 mg Tablet 10 MG PO (12:26)
[2021-07-15] MEDS: enoxaparin 40 mg/0.4 mL Syringe SUBCUT (14:20)
--- NOTE | 2021-07-15 15:44 | PM.PN ---
Subjective Subjective: Interval history: States he is feeling about the same. No chest pain or pressure. Still on 5 L of oxygen. Did not wear CPAP last night, states was not offered it. Vitals/I&O/Wt Last Vital Signs Temp 97.5 F L 07/15/21 11:36 Pulse 85 07/15/21 14:43 Resp 16 07/15/21 14:43 BP 120/72 07/15/21 11:36 Pulse Ox 95 07/15/21 14:43 07/15/21 07/15/21 07/15/21 06:59 14:59 22:59 Intake Total 1000 / 1472 720 / 720 Output Total 1450 / 4650 2150 / 2150 Balance -450 / -3178 -1430 / -1430 Weight last 48 hrs Weight 155.446 kg Weight 158.122 kg Physical Exam Const: COMMON NORMALS: no acute distress, patient oriented x3 and alert GENERAL APPEARANCE: cooperative NUTRITIONAL APPEARANCE: obese ORIENTATION/CONSCIOUSNESS: Yes awake HENMT: COMMON NORMALS: oropharynx normal Neck/C-Spine: COMMON NORMALS: no JVD Resp: COMMON NORMALS: normal respiratory effort and clear to auscultation bilaterally AUSCULTATION: clear to auscultation bilaterally, no crackles and wheezes (mild on R) Cardio: COMMON NORMALS: no JVD, regular rhythm, S1 normal heart sound present, S2 normal heart sound present and No murmurs present (Cardio) RHYTHM: regular rhythm HEART SOUNDS: S1 normal heart sound present and S2 normal heart sound present GI: COMMON NORMALS: Normal to inspection, nondistended, normoactive bowel sounds present, Soft to palpation and non-tender PALPATION: Yes Soft to palpation Extremity: COMMON NORMALS: no joint enlargement GENERAL: Yes edema (1+) Neuro: COMMON NORMALS: patient oriented x3 and moves all extremities SENSORIUM/ORIENTATION: Yes alert Skin: COMMON NORMALS: no rashes or lesions noted GENERAL SKIN EXAM: no rashes or lesions noted Data : 07/15/21 03:40 07/15/21 03:40 A&P Assessment and plan (1) Hypoxemia: Edema is decreasing. Crackles improved, has mild wheeze on the right side. Chest x-ray with chronic right basal changes, no acute cardiopulmonary findings. Was not on CPAP last night. Requested to place tonight. Continue Lasix IV. Monitor I&O. Continue to reassess improvement. Ambulate. Lisinopril and metoprolol held due to soft blood pressures. So far having some PACs, no further bradycardia noted. Continue to monitor heart rates. Blood pressures. Requiring 5 L by nasal cannula. Follow-up TTE - taken Discussed with him, and treated sleep apnea may also contribute to pulmonary edema, CHF exacerbation. He reports stopped using CPAP in 2009 after his sleep apnea had resolved. Has not had any reassessment. Could be contributing to his arrhythmias as well. Discussed with him would benefit from repeat sleep study. He verbalized understanding agreement. Less likely pneumonia. Rapid flu negative. COVID-19 rapid and PCR negative. MRSA PCR negative. Negative urine bacterial antigens. Status: Acute (2) Frequent PVCs: For now metoprolol on hold. Bradycardia resolved. PACs noted. Continue telemetry monitoring. Re-ordered TTE Also noted some dropped beats, possibly Mobitz type II, but difficult to tell. Continue telemetry monitoring at this time. Pending EP follow-up for ablation due to frequent PVCs Status: Acute (3) Chest pressure: Resolved. Continue diuresis as tolerating. No PE on CTA. Possibly due to fluid overload, with some pleuritic component. Follow-up TTE Status: Acute (4) CAD (coronary artery disease): Status: Acute (5) History of coronary artery bypass graft: Status: Acute (6) CKD (chronic kidney disease), stage II: Status: Acute (7) Controlled diabetes mellitus with hyperglycemia, without long-term current use of insulin: Status: Acute Qualifiers: Diabetes mellitus type: type 2 Qualified Code(s): E11.65 - Type 2 diabetes mellitus with hyperglycemia (8) Obstructive sleep apnea: Would benefit from repeat sleep study. CPAP. Status: Acute Additional A&P Information Hypertension: BP meds on hold due to earlier soft blood pressures. Currently at goal. Attestations Medical Necessity Statement*: Continue admission for assessment management of CHF exacerbation, hypoxia, with also underlying untreated JACINTO, with additional underlying morbidities as above. 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
[2021-07-15 18:07] LABS: Glucose Point of Care 172 mg/dL (70-110)
--- NOTE | 2021-07-15 19:29 | PC.NURSE ---
Shift Note Frequent safety and comfort rounds continue. Orders and/or nursing care completed as indicated. Patient monitored for response to intervention and treatment(s). Education provided includes new medications plan of care . Patient and/or community health program representative verbalized understanding. Will continue to monitor.
[2021-07-15 19:53] LABS: Glucose Point of Care 165 mg/dL (70-110)
[2021-07-15] MEDS: atorvastatin 40 mg Tablet 20 MG PO (20:45)
[2021-07-16] VITALS (15 sets, daily range): BP systolic 113–165; BP diastolic 75–90; PULSE 76–94; RESP 13–28; TEMP 36.6–37.1; O2SAT 90–96
[2021-07-16 04:06] LABS: Basophils % 0.5 %; Eosinophils # 0.2 10^3/uL (0.0-0.8); Eosinophils % 1.9 %; Hemoglobin 16.9 g/dL (11.7-16.6); Lymphocytes # 1.4 10^3/uL (0.8-4.8); Lymphocytes % 16.9 %; Mean Corpuscular HGB Conc 31.3 g/dL (30.0-36.0); Mean Corpuscular Hemoglobin 31.4 pg (28.0-34.0); Mean Corpuscular Volume 100.2 fl (80-94); Mean Platelet Volume 9.8 fL (7.4-10.4); Monocytes % 11.5 %; Neutrophils # 5.77 10^3/uL (1.8-7.7); Nucleated Red Blood Cells % 0 %; Platelet Count 214 10^3/cmm (130-400); Red Blood Count 5.39 10^6/uL (4.1-5.3); Red Cell Distribution Width 14.6 % (12.1-15.1); White Blood Count 8.4 10^3/uL (4.0-10.0)
[2021-07-16] MEDS: famotidine 20 mg/2 mL INJ IVP ×2 (04:17→16:57)
[2021-07-16] MEDS: FUROsemide 10 mg/mL SDV 4mL 40 MG IVP ×2 (04:17→16:56)
[2021-07-16 04:32] LABS: Anion Gap 18.8 (5-19); Blood Urea Nitrogen 15 mg/dL (8-23); Calcium 9.6 mg/dL (8.5-10.5); Carbon Dioxide 29 mmol/L (22-29); Chloride 96 mmol/L (98-107); Glomerular Filtration Rate 85.5 mL/min (90-130); Glucose 168 mg/dL (65-115); Osmolality Calculated 293 mOsm/kg (285-295); Potassium 4.8 mmol/L (3.5-5.1); Sodium 139 mmol/L (136-145)
--- NOTE | 2021-07-16 06:30 | NUR.SHIFT ---
Shift Summary: Patient tolerated CPAP from 8002-4001, VSS, no signs of distress
[2021-07-16 06:37] LABS: Glucose Point of Care 172 mg/dL (70-110)
[2021-07-16] MEDS: budesonide 0.5 mg/2 mL Neb INHALATION ×2 (08:09→20:37)
[2021-07-16] MEDS: ipratropium-albuterol 3 mL Neb INHALATION ×3 (08:09→20:37)
[2021-07-16] MEDS: ferrous gluconate 324 mg Tablet PO ×2 (08:46→16:58)
[2021-07-16] MEDS: spironolactone 25 mg Tablet PO (08:46)
[2021-07-16] MEDS: aspirin 81 mg EC Tablet PO (08:46)
[2021-07-16] MEDS: bisacodyl 5 mg Tablet 10 MG PO (08:46)
[2021-07-16] MEDS: insulin glargine 100 units/1 mL 40 UNIT SUBCUT (08:46)
[2021-07-16] MEDS: lactulose oral liq 20 gm/30 mL UDC 10 GM PO (08:46)
[2021-07-16] MEDS: levothyroxine 150 mcg Tablet PO (08:46)
[2021-07-16] MEDS: insulin lispro 100 unit/1 mL SUBCUT ×3 (08:47→20:29)
[2021-07-16 11:13] LABS: Glucose Point of Care 151 mg/dL (70-110)
[2021-07-16] MEDS: enoxaparin 40 mg/0.4 mL Syringe SUBCUT (14:08)
--- NOTE | 2021-07-16 16:18 | P.PN_ITS ---
Subjective Subjective: Interval history: CT doing about the same. Not coughing. Denies chest pain or pressure. Has gotten up in the room as we discussed. Vitals/I&O/Wt Last Vital Signs Temp 98.7 F 07/16/21 08:00 Pulse 82 07/16/21 16:07 Resp 16 07/16/21 16:07 BP 165/88 07/16/21 14:42 Pulse Ox 95 07/16/21 16:07 07/16/21 07/16/21 07/16/21 06:59 14:59 22:59 Intake Total 150 / 1770 236 / 236 Output Total 750 / 750 Balance 150 / -2155 -514 / -514 Weight last 48 hrs Weight 153.45 kg Weight 155.446 kg Physical Exam Const: COMMON NORMALS: no acute distress, patient oriented x3 and alert GENERAL APPEARANCE: cooperative NUTRITIONAL APPEARANCE: obese ORIENTATION /CONSCIOUSNESS: Yes awake HENMT: COMMON NORMALS: oropharynx normal Neck/C-Spine: COMMON NORMALS: no JVD Resp: COMMON NORMALS: normal respiratory effort and clear to auscultation bilaterally AUSCULTATION: clear to auscultation bilaterally, no crackles and wheezes (mild on R) Cardio: COMMON NORMALS: no JVD, regular rhythm, S1 normal heart sound present, S2 normal heart sound present and No murmurs present (Cardio) RHYTHM: regular rhythm HEART SOUNDS: S1 normal heart sound present and S2 normal heart sound present GI: COMMON NORMALS: Normal to inspection, nondistended, normoactive bowel sounds present, Soft to palpation and non-tender PALPATION: Yes Soft to palpation Extremity: COMMON NORMALS: no joint enlargement GENERAL: Yes edema (1+) Neuro: COMMON NORMALS: patient oriented x3 and moves all extremities SENSORIUM/ORIENTATION: Yes alert Skin: COMMON NORMALS: no rashes or lesions noted GENERAL SKIN EXAM: no rashes or lesions noted Data : 07/16/21 03:43 07/16/21 03:43 A&P Assessment and plan (1) Hypoxemia: Negative balance. Condition is worsening, although this morning still requiring 4 L oxygen, however, with decreasing edema, and through the afternoon oxygen requirement may be decreasing.currently appears decreasing down to 1 L nasal cannula. Encouraged him to continue ambulate. Will reassess volume status, renal function, oxygenation and if continues to do well, can likely discharge back home. Needs to continue CPAP nightly to prevent further pulmonary edema. Discussed with him. He verbalized understanding. Was not on CPAP last night. Requested to place tonight. Lisinopril and metoprolol held due to soft blood pressures. So far having some PACs, no further bradycardia noted. Continue to monitor heart rates. Blood pressures. Requiring 5 L by nasal cannula. TTE with normal ventricular systolic function, with regurgitant fraction at 55%, appeared to be septal bounce which could be secondary to intraventricular conduction delay. Grade 1 diastolic dysfunction. Normal to mildly elevated filling pressures. Moderate aortic valve calcification, no AVS or AVR. Normal MV. No pericardial effusion. Discussed with him, untreated sleep apnea may also contribute to pulmonary edema, CHF exacerbation. He reports stopped using CPAP in 2009 after his sleep apnea had resolved. Has not had any reassessment. Could be contributing to his arrhythmias as well. Discussed with him would benefit from repeat sleep study. Less likely pneumonia. Rapid flu negative. COVID-19 rapid and PCR negative. MRSA PCR negative. Negative urine bacterial antigens. Status: Acute (2) Frequent PVCs: For now metoprolol on hold. Bradycardia resolved. PACs noted. Continue telemetry monitoring. Re-ordered TTE Also noted some dropped beats, possibly Mobitz type II, but difficult to tell. Continue telemetry monitoring at this time. Pending EP follow-up for ablation due to frequent PVCs Status: Acute (3) Chest pressure: Resolved. Continue diuresis as tolerating. No PE on CTA. Possibly due to fluid overload, with some pleuritic component. Follow-up TTE Status: Acute (4) CAD (coronary artery disease): Status: Acute (5) History of coronary artery bypass graft: Status: Acute (6) CKD (chronic kidney disease), stage II: Status: Acute (7) Controlled diabetes mellitus with hyperglycemia, without long-term current use of insulin: Status: Acute Qualifiers: Diabetes mellitus type: type 2 Qualified Code(s): E11.65 - Type 2 diabetes mellitus with hyperglycemia (8) Obstructive sleep apnea: Would benefit from repeat sleep study. CPAP. Status: Acute Additional A&P Information Hypertension: BP meds on hold due to earlier soft blood pressures. Currently at goal. Attestations Medical Necessity Statement*: Continue admission for management of hypoxia, CHF exacerbation, with underlying untreated sleep apnea. 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
[2021-07-16 16:38] LABS: Glucose Point of Care 120 mg/dL (70-110)
--- NOTE | 2021-07-16 19:09 | PC.NURSE ---
Received report from SAHRA Venegas. Patient resting in bed watching TV. Discussed use of bipap at night. Patient reports using last night and does feel better for it. Patient oxygen at 2L NC and is maintaining SpO2 of 90-91% percent presently. Patient denies pain or needs. No distress observed. Will continue to monitor.
[2021-07-16 20:16] LABS: Glucose Point of Care 154 mg/dL (70-110)
[2021-07-16] MEDS: atorvastatin 40 mg Tablet 20 MG PO (20:29)
[2021-07-17] VITALS (13 sets, daily range): BP systolic 108–137; BP diastolic 70–90; PULSE 78–98; RESP 16–49; TEMP 36.4–36.9; O2SAT 84–95
[2021-07-17] MEDS: ipratropium-albuterol 3 mL Neb INHALATION ×2 (02:59→08:52)
[2021-07-17] MEDS: FUROsemide 10 mg/mL SDV 4mL 40 MG IVP (03:58)
[2021-07-17] MEDS: famotidine 20 mg/2 mL INJ IVP (03:59)
--- NOTE | 2021-07-17 06:07 | PC.NURSE ---
Shift Note Frequent safety and comfort rounds continue. Orders and/or nursing care completed as indicated. Patient monitored for response to intervention and treatment(s). Education provided includes Lasix and Pepcid. Patient veralized complete understanding. Patient used bipap through the night until ~0400. Note patient to have SpO2 to decrease to low 80s while sleeping. Patient sleep with his mouth open. Patient denies pain or needs. No distess observed. Will continue to monitor.
[2021-07-17 06:42] LABS: Basophils % 0.4 %; Eosinophils # 0.2 10^3/uL (0.0-0.8); Eosinophils % 2.3 %; Hematocrit 54.1 % (42.0-52.0); Hemoglobin 17.2 g/dL (11.7-16.6); Lymphocytes # 1.7 10^3/uL (0.8-4.8); Lymphocytes % 18.2 %; Mean Corpuscular HGB Conc 31.8 g/dL (30.0-36.0); Mean Corpuscular Hemoglobin 31.7 pg (28.0-34.0); Mean Corpuscular Volume 99.8 fl (80-94); Mean Platelet Volume 10.3 fL (7.4-10.4); Neutrophils # 6.22 10^3/uL (1.8-7.7); Neutrophils % 67.4 %; Nucleated Red Blood Cells % 0 %; Platelet Count 213 10^3/cmm (130-400); Red Blood Count 5.42 10^6/uL (4.1-5.3); Red Cell Distribution Width 14.6 % (12.1-15.1); White Blood Count 9.2 10^3/uL (4.0-10.0)
[2021-07-17 06:46] LABS: Glucose Point of Care 151 mg/dL (70-110)
[2021-07-17 07:17] LABS: Anion Gap 15.5 (5-19); Blood Urea Nitrogen 20 mg/dL (8-23); Calcium 9.5 mg/dL (8.5-10.5); Carbon Dioxide 33 mmol/L (22-29); Chloride 93 mmol/L (98-107); Glomerular Filtration Rate 75.7 mL/min (90-130); Glucose 148 mg/dL (65-115); Osmolality Calculated 289 mOsm/kg (285-295); Potassium 4.5 mmol/L (3.5-5.1); Sodium 137 mmol/L (136-145)
[2021-07-17] MEDS: docusate sodium 100 mg Capsule PO (08:36)
[2021-07-17] MEDS: ferrous gluconate 324 mg Tablet PO (08:37)
[2021-07-17] MEDS: spironolactone 25 mg Tablet PO (08:37)
[2021-07-17] MEDS: aspirin 81 mg EC Tablet PO (08:37)
[2021-07-17] MEDS: levothyroxine 150 mcg Tablet PO (08:37)
[2021-07-17] MEDS: fenofibrate 48 mg Tablet PO (08:37)
[2021-07-17] MEDS: insulin glargine 100 units/1 mL 40 UNIT SUBCUT (08:38)
[2021-07-17] MEDS: budesonide 0.5 mg/2 mL Neb INHALATION (08:52)
--- NOTE | 2021-07-17 09:55 | PC.SOCIAL ---
IMM Updated Updated pt on IMM. No questions voiced. Provided pt a copy. Initialed, dated, & timed copy in chart.
--- NOTE | 2021-07-17 11:04 | PM.DCS ---
Discharge Providers Date of Admission: 07/12/21 08:12 Date of Discharge: July 17, 2021 Attending Provider at Admission: Ion Parks MD Attending Provider at Discharge: Osvaldo Alicea Primary Care Provider: MIRANDA Morley Diagnoses at Discharge Discharge Diagnosis (1) Hypoxemia: Status: Acute (2) Frequent PVCs: Status: Acute (3) Chest pressure: Status: Acute (4) CAD (coronary artery disease): Status: Acute (5) History of coronary artery bypass graft: Status: Acute Permanent problem details: 2 grafts in 2006 (6) CKD (chronic kidney disease), stage II: Status: Acute (7) Controlled diabetes mellitus with hyperglycemia, without long-term current use of insulin: Status: Acute Qualifiers: Diabetes mellitus type: type 2 Qualified Code(s): E11.65 - Type 2 diabetes mellitus with hyperglycemia (8) Obstructive sleep apnea: Status: Acute Reason for Visit Reason for Visit: cp, chest pressure Hospital Course Hospital Course Pleasant 60-year-old gentleman with history of CAD, status post CABG, kristin, recently on event monitor up to 37%, recent cardiac angiogram on 06/05 showing no significant coronary stenosis, SVG to RV branch, SVG to RCA patent, lesion in mid LAD, not hemodynamically significant, FFR 0.86, continues on medical management, follow up with cardiology, reports next appointment is on 08/03, other history includes prior diagnosis of JACINTO, previously on CPAP back in 2009, but for a long time reports was not on CPAP anymore due to condition having resolved. Presented to the hospital due to chest pressure, palpitations. Presentation noted hypoxic with acute diastolic CHF, treated with IV Lasix, continue spironolactone, fluid restriction 1500 mL. Echocardiogram with normal ejection fraction, grade 1 diastolic dysfunction, moderate aortic valve calcification, no aortic valve stenosis, no AVR, normal MV, no pericardial effusion. Lisinopril metoprolol were held recently due to soft blood pressures while attempting to diurese. Blood pressure improved, diuretics were resumed. Noted also transient bradycardia, so we are resuming metoprolol at lower dose of 12.5 mg daily. He is asked to follow-up again with cardiology regarding frequent PVCs. With consideration of possible COPD at presentation, was continued on breathing treatments, however, symptoms during hospitalization not suggestive of COPD exacerbation, not started on steroids or antibiotic. Imaging and clinical findings not suggestive of pneumonia, no consolidation on CT, remained afebrile, without leukocytosis, productive cough, or other symptoms. Influenza antigen, COVID-19 PCR negative. During hospitalization, however, noted to be more hypoxic at night, and we discussed in detail with him that likely a number of his symptoms are related to untreated JACINTO, and need for nightly CPAP. Discussed pulmonary edema, congestive heart failure secondary to JACINTO, and Manny his cardiac arrhythmia issues could be related as well. He verbalized understanding, and agreement that he needs to be set up with CPAP, is referred for sleep study with titration. He overall improved quite significantly. Oxygenation improved. He has been getting up in the room. Saturation in the 90s on 2 L of oxygen. He feels improved to the point he wants to return home to continue oral diuretic, continue taper down oxygen and follow-up in the outpatient clinic. Physical Exam Const: COMMON NORMALS: no acute distress, patient oriented x3 and alert GENERAL APPEARANCE: cooperative NUTRITIONAL APPEARANCE: obese ORIENTATION/CONSCIOUSNESS: Yes awake HENMT: COMMON NORMALS: oropharynx normal Neck/C-Spine: COMMON NORMALS: no JVD Resp: COMMON NORMALS: normal respiratory effort and clear to auscultation bilaterally AUSCULTATION: clear to auscultation bilaterally, no crackles and wheezes (mild on R) Cardio: COMMON NORMALS: no JVD, regular rhythm, S1 normal heart sound present, S2 normal heart sound present and No murmurs present (Cardio) RHYTHM: regular rhythm HEART SOUNDS: S1 normal heart sound present and S2 normal heart sound present GI: COMMON NORMALS: Normal to inspection, nondistended, normoactive bowel sounds present, Soft to palpation and non-tender PALPATION: Yes Soft to palpation Extremity: COMMON NORMALS: no joint enlargement GENERAL: Yes edema (trace) Neuro: COMMON NORMALS: patient oriented x3 and moves all extremities SENSORIUM/ORIENTATION: Yes alert Skin: COMMON NORMALS: no rashes or lesions noted GENERAL SKIN EXAM: no rashes or lesions noted Discharge Data Data Completed and Pending: Completed Studies During Hospitalization Category Date Time Status CT angio chest PE protcl [id number] Urge nt Cat Scan 07/12/21 05:05 Completed XR chest 1V niki ble [id number] Routine Exams 07/15/21 06:00 Completed XR chest 1V niki ble [id number] Stat Exams 07/12/21 03:20 Completed CV. echo complete * [id number] Routine Ultrasound 07/15/21 06:30 Completed Pending at discharge Category Date Time Status CA echo doppler c omplete Urgent Exams 07/12/21 08:10 Ordered Basic Metabolic P shilo AM LABS Lab 07/18/21 04:00 Ordered Basic Metabolic P shilo AM LABS Lab 07/19/21 04:00 Ordered Complete Blood Co unt w/Auto AM LABS Lab 07/18/21 04:00 Ordered Complete Blood Co unt w/Auto AM LABS Lab 07/19/21 04:00 Ordered Labs from last 24 hours 07/17/21 07/17/21 07/17/21 06:41 04:16 04:16 WBC 9.2 RBC 5.42 H Hgb 17.2 H Hct 54.1 H MCV 99.8 H MCH 31.7 MCHC 31.8 RDW 14.6 Plt Count 213 MPV 10.3 Neut % (Auto) 67.4 Lymph % (Auto) 18.2 Hayes % (Auto) 11.0 Eos % (Auto) 2.3 Baso % (Auto) 0.4 Neut # (Auto) 6.22 Lymph # (Auto) 1.7 Hayes # (Auto) 1.0 H Eos # (Auto) 0.2 Baso # (Auto) 0.0 Nucleated RBC % (a uto) 0 Nucleated RBCs # 0.0 Sodium 137 Potassium 4.5 Chloride 93 L Carbon Dioxide 33 H Anion Gap 15.5 BUN 20 Creatinine 1.0 GFR Calculation 75.7 L Glucose 148 H POC Glucose 151 H Calculated Osmolal ity 289 Calcium 9.5 07/16/21 07/16/21 07/16/21 20:00 16:31 11:09 WBC RBC Hgb Hct MCV MCH MCHC RDW Plt Count MPV Neut % (Auto) Lymph % (Auto) Hayes % (Auto) Eos % (Auto) Baso % (Auto) Neut # (Auto) Lymph # (Auto) Hayes # (Auto) Eos # (Auto) Baso # (Auto) Nucleated RBC % (a uto) Nucleated RBCs # Sodium Potassium Chloride Carbon Dioxide Anion Gap BUN Creatinine GFR Calculation Glucose POC Glucose 154 H 120 H 151 H Calculated Osmolal ity Calcium Vitals: Last Vital Signs Temp 97.6 F 07/17/21 08:00 Pulse 86 12/10/21 08:57 Resp 17 07/17/21 08:57 BP 127/71 07/17/21 08:00 Pulse Ox 93 07/17/21 08:57 Discharge Plan Discharge Patient Disposition: Home Condition: Stable Prescriptions: New ferrous gluconate 324 mg (37.5 mg iron) Tablet 324 mg PO EVERY OTHER DAY 42 Days Qty: 21 RF: 0 furosemide 40 mg tablet 40 mg PO DAILY Qty: 90 RF: 0 Continued cholecalciferol (vitamin D3) 125 mcg (5,000 unit) capsule 10,000 unit PO DAILY RF: 0 aspirin [Adult Low Dose Aspirin] 81 mg tablet,delayed release (DR/EC) 81 mg PO DAILY RF: 0 docusate sodium [Colace] 100 mg capsule 100 mg PO DAILY Qty: 90 RF: 0 levothyroxine 150 mcg tablet 150 mcg PO DAILY Qty: 90 RF: 0 nitroglycerin 0.4 mg tablet, sublingual 0.4 mg sublingual Q5M PRN (Reason: chest pain) Qty: 25 RF: 3 Ozempic 1 mg/dose (2 mg/1.5 mL) pen injector 1 mg SUBCUT .weekly Qty: 3 RF: 2 (DME) pen needle, diabetic 33 gauge x 5/32 needle See Rx Instructions .ROUTE .MEDSUPPLY Qty: 100 RF: 5 spironolactone 25 mg tablet 25 mg PO DAILY Qty: 90 RF: 0 (DME) blood sugar diagnostic Strip See Rx Instructions .ROUTE .MEDSUPPLY Qty: 50 RF: 5 Levemir FlexTouch U-100 Insuln 100 unit/mL (3 mL) insulin pen See Rx Instructions SUBCUT DAILY Qty: 15 RF: 1 atorvastatin 20 mg tablet 20 mg PO BEDTIME RF: 0 isosorbide dinitrate 10 mg tablet 5 mg PO BID Qty: 60 RF: 3 Changed lisinopril 5 mg tablet 2.5 mg PO DAILY Qty: 90 RF: 0 metoprolol succinate 25 mg tablet extended release 24 hr 12.5 mg PO DAILY Qty: 90 RF: 3 Discharge Orders: Discharge Order (Routine); Ordered 07/17/21 Ordered By: Osvaldo Alicea Other Ambulatory Orders: Sleep Study/Titration (Routine) Timeframe: 1 Day Facility: [facility] - Location: [facility] Ordered By: Osvaldo Alicea DME: CPAP (Order) Timeframe: 1 Day Location: None Selected Ordered By: Osvaldo Alicea Referrals: Catarina Olsen FNP-C [Primary Care Provider] - 07/24/21 10:30 am (You have a hospital followup with MIRANDA Candelaria at [facility] on July 24 at 10:30am ) Andrea Bhakta MD [Physician] - 07/23/21 2:00 pm (Pkease keep your appointment already scheduled with Dr. Bhakta at [facility] on July 23 at 2:00pm) Discharge Diet: Cardiac and Diabetic Discharge Activity: Increase activity as tolerated and Oxygen as instructed Patient Instructions: Furosemide (By mouth) (Lasix), Ascorbic Acid/Cyanocobalamin/Ferrous Fumarate (By mouth), Heart Failure (GEN), Sleep Apnea (GEN), Using Oxygen at Home (GEN), Hypoxia (GEN) Activity Restrictions/Additional Instructions: Centralized Scheduling will be calling with the details of your Sleep Study. If you don't hear from them, please give them a call. [phone] Continue oxygen at home, target saturation 90-92%. It may decrease somewhat during exertion, but should come back up with rest. In case decreasing below 88%, increase oxygen flow rate. In case oxygen saturation is not improving and staying below 88%, or you are getting progressively more short of breath, experiencing chest pain or pressure, fainting, or any other concerning symptoms, seek medical attention. Please set up CPAP as soon as possible and use it every night to prevent episodes of pulmonary edema, congestive heart failure, low oxygen, cardiac arrhythmia and other complications of obstructive sleep apnea. You are referred for sleep study with titration to help achieve optimal settings. Please follow-up with Dr. Bhakta in office as per appointment. Please note that your dose of metoprolol is decreased to 12.5 mg due to noted episode of soft blood pressure and slow heart rate in the hospital. Continue follow-up with regards to arrhythmia premature ventricular contractions. Lasix discontinued from hospital in tablet form, 40 mg daily. Please limit daily fluid intake to less than 1500 mL to avoid fluid overload. Continue follow-up with your primary doctor and history teacher with regards to congestive heart failure, coronary disease, hypertension, chronic kidney disease, diabetes, and other chronic conditions. Discharge Attestations Time Spent in Discharge Care*: greater than 30 min Quality Metrics Clinical Quality Measures During this hospital stay, did patient experience: None Coding Level of Care Code Acute Chg FW DC note Diagnoses Hypoxemia R09.02 Frequent PVCs I49.3 Chest pressure R07.89 CAD (coronary artery disease) I25.10 History of coronary artery bypass graft Z95.1 CKD (chronic kidney disease), stage II N18.2 Controlled diabetes mellitus with hyperglycemia, without long-term current use of insulin E11.65 Diabetes mellitus type: type 2 Obstructive sleep apnea G47.33
[2021-07-17 11:09] LABS: Glucose Point of Care 157 mg/dL (70-110)
[2021-07-17] MEDS: insulin lispro 100 unit/1 mL SUBCUT (12:30)
[2021-07-17] MEDS: metoprolol succinate ER (24 HR) 25 mg Tablet 12.5 MG PO (12:30)
--- NOTE | 2021-07-17 13:22 | PC.CHAP ---
Pastoral Care Encounter/Spiritual Assessment Type of Contact [] Declined commercial lending assistant visit [] Patient/Family/Request visit [] Outpatient visit [xx] Follow-up visit [] Physician referral [] Code/Alert [xx] Routine visit [] Staff referral [] Actively dying [] Patient sleeping [] Family support [] [] Out of room [] Palliative care [] [] Receiving care in room [] Pre-surgical visit [] Trauma [xx] Long length of stay [] ICU visit [] Other: Relational/Emotional Strength [xx] Patient feels connected with others/family/visitors/staff [] Distress [] Loneliness/isolation [] Abandonment Spirituality of Patient [xx] Person of Rere [xx] Attends Temple of their Rere [xx] Believes in Prayer [xx] Reads Bible or Methodist materials [] There are Spiritual issues to be addressed Disabilities Caregiver Interventions [xx] Prayer [xx] Active listening [xx] Non-anxious presence [xx] Spiritual/emotional support [] Crisis/trauma care [] Spiritual counseling [] Bereavement support [] Provided bereavement packet [xx] Provided Bible/devotional materials [] Provided toy/stuffed animal, coloring book to patient or family member [] Provided Communion [] Anointing/[place] [] Salvation [xx] Completed spiritual assessment [] Other: Impact on Illness or Injury [] Angry [] Fearful [] Anxious [] Often cries [] Exhaustion [] Unable to work [] Unable to attend jain [] Unable to walk/stand [] Unable to read [] Unable to drive [] Unable to eat/drink [] Unable to sleep [] Unable to be with family [] Patient intubated [xx] Other: very impatient Summary Patient stated he feels much better, has been here 6 days and will sign himself out today of DrPablo doesn't. He does not plan to stay another day as tomorrow is ba (Tuesday) and he does not want to be in hospital over . (Note: Disabilities Caregiver dropped by his room a few minutes later. had arrived with discharge orders within 5 minutes of commercial lending assistant's first visit. Patient stated prayers had been answered and thanked commercial lending assistant for praying.) Time spent with patient 8 minutes
== END 2021-07-17 16:20 | disposition home or self-care (01) | DRG 291 ==
LOC: ER 08:21 → ER IP 11:28 → CSU 16:18
PROVIDERS: Emergency Medicine; Admitting Provider Student in an Organized Health Care Education/Training Program; Emergency Provider Emergency Medicine; PCP Nurse Practitioner; Visit Provider Internal Medicine
DX: I13.0 Hypertensive heart and chronic kidney disease with heart failure and stage 1 through stage 4 chronic kidney disease, or unspecified chronic kidney disease (principal); I50.33 Acute on chronic diastolic (congestive) heart failure; J96.01 Acute respiratory failure with hypoxia; I25.10 Atherosclerotic heart disease of native coronary artery without angina pectoris; E11.22 Type 2 diabetes mellitus with diabetic chronic kidney disease; N18.2 Chronic kidney disease, stage 2 (mild); I49.3 Ventricular premature depolarization; E11.65 Type 2 diabetes mellitus with hyperglycemia; G47.33 Obstructive sleep apnea (adult) (pediatric); E03.9 Hypothyroidism, unspecified; E78.2 Mixed hyperlipidemia; Z79.4 Long term (current) use of insulin; Z95.1 Presence of aortocoronary bypass graft; Z79.82 Long term (current) use of aspirin
CPT/HCPCS: 36415; 36416; 36600; 71045; 71275; 80048; 80053; 80061; 81003; 82436; 82803; 82962; 83036; 83540; 83550; 83735; 83880; 84100; 84133; 84145; 84300; 84439; 84443; 84481; 84484; 85025; 85378; 86403; 87426; 87449; 87635; 87641; 87804; 93005; 93306; 94640; 94660; 94664; 96372; 96374; 96375; 99285; J1650; J1815 ×2; J1940; J2270; J2405; J3490; J7626; Q9967

== ENCOUNTER 2021-09-16 20:00 | Outpatient (CLI) | payer MEDICARE, SELFPAY | END 2021-09-16 20:01 | disposition home or self-care (01) | LOC: SLEEP 09-17 06:30 | PROVIDERS: PCP Nurse Practitioner; Visit Provider Internal Medicine | DX: G47.30 Sleep apnea, unspecified (principal) | CPT/HCPCS: 95811 ==

== ENCOUNTER → 2021-11-17 10:25 | Outpatient (BNVA) | payer MEDICARE, SELFPAY | PROVIDERS: PCP Nurse Practitioner; Visit Provider Nurse Practitioner | DX: E78.2 Mixed hyperlipidemia (principal); E11.65 Type 2 diabetes mellitus with hyperglycemia; Z79.4 Long term (current) use of insulin | CPT/HCPCS: 80053; 80061; 81000; 83036; 84443; 85025 ==

== ENCOUNTER → 2021-11-20 11:19 | Outpatient (BNVA) | payer MEDICARE, SELFPAY | PROVIDERS: PCP Nurse Practitioner; Visit Provider Internal Medicine | DX: I49.3 Ventricular premature depolarization (principal); I50.32 Chronic diastolic (congestive) heart failure; I25.10 Atherosclerotic heart disease of native coronary artery without angina pectoris; Z79.82 Long term (current) use of aspirin; Z87.891 Personal history of nicotine dependence | CPT/HCPCS: 36415; 80048; 83880; 99214 ==

== ENCOUNTER 2021-12-09 12:42 | Outpatient (CLI) | payer MEDICARE, SELFPAY ==
[2021-12-09 13:40] LABS: Blood Urea Nitrogen 24 mg/dL (8-23); Carbon Dioxide 31 mmol/L (22-29); Chloride 99 mmol/L (98-107); Glomerular Filtration Rate 61.1 mL/min (90-130); Glucose 118 mg/dL (65-115); NT Pro B Type Natriuretic Pept 1423 pg/mL (0-125); Osmolality Calculated 293 mOsm/kg (285-295); Sodium 139 mmol/L (136-145)
[2021-12-09 13:42] LABS: Anion Gap 13.6 (5-19); Potassium 4.6 mmol/L (3.5-5.1)
== END 2021-12-09 12:43 | disposition home or self-care (01) ==
PROVIDERS: PCP Nurse Practitioner; Visit Provider Internal Medicine
DX: I50.32 Chronic diastolic (congestive) heart failure (principal)
CPT/HCPCS: 80048; 83880

== ENCOUNTER 2021-12-29 15:00 | Oncology outpatient (recurring) (ONCR) | payer MEDICARE, SELFPAY | END 2022-01-05 23:59 | disposition home or self-care (01) | PROVIDERS: PCP Nurse Practitioner; Visit Provider Internal Medicine Medical Oncology | DX: D75.1 Secondary polycythemia (principal); R09.02 Hypoxemia; Z87.891 Personal history of nicotine dependence | CPT/HCPCS: 80053; 81270; 82668; 83615; 85025; 99195; 99204; 99999 ==

== ENCOUNTER 2022-01-08 14:07 | Outpatient (CLI) | payer MEDICARE, SELFPAY ==
[2022-01-08 15:21] LABS: Anion Gap 12.3 (5-19); Blood Urea Nitrogen 25 mg/dL (8-23); Calcium 9.6 mg/dL (8.5-10.5); Carbon Dioxide 30 mmol/L (22-29); Chloride 100 mmol/L (98-107); Glomerular Filtration Rate 61.1 mL/min (90-130); Glucose 97 mg/dL (65-115); NT Pro B Type Natriuretic Pept 1175 pg/mL (0-125); Osmolality Calculated 290 mOsm/kg (285-295); Potassium 4.3 mmol/L (3.5-5.1); Sodium 138 mmol/L (136-145)
== END 2022-01-08 14:08 | disposition home or self-care (01) ==
PROVIDERS: PCP Nurse Practitioner; Visit Provider Internal Medicine
DX: I50.32 Chronic diastolic (congestive) heart failure (principal); I25.10 Atherosclerotic heart disease of native coronary artery without angina pectoris
CPT/HCPCS: 36415; 80048; 83880

== ENCOUNTER → 2022-01-26 08:59 | Outpatient (BNVA) | payer MEDICARE, SELFPAY | PROVIDERS: PCP Nurse Practitioner; Visit Provider Nurse Practitioner | DX: E11.65 Type 2 diabetes mellitus with hyperglycemia (principal); E78.2 Mixed hyperlipidemia; K59.01 Slow transit constipation; E03.9 Hypothyroidism, unspecified; I50.9 Heart failure, unspecified; Z79.4 Long term (current) use of insulin | CPT/HCPCS: 83036 ==

== ENCOUNTER 2022-02-25 10:00 | Outpatient (CLI) | payer MEDICARE, SELFPAY ==
[2022-02-25 10:47] LABS: Basophils # 0.1 10^3/uL (0.0-0.1); Basophils % 0.7 %; Eosinophils # 0.2 10^3/uL (0.0-0.8); Eosinophils % 2.4 %; Hematocrit 59.4 % (42.0-52.0); Lymphocytes # 1.4 10^3/uL (0.8-4.8); Lymphocytes % 20.5 %; Mean Corpuscular Hemoglobin 31.4 pg (28.0-34.0); Mean Platelet Volume 10.9 fL (7.4-10.4); Monocytes # 0.6 10^3/uL (0.2-0.9); Monocytes % 9.1 %; Neutrophils # 4.46 10^3/uL (1.8-7.7); Nucleated Red Blood Cells % 0 %; Platelet Count 185 10^3/cmm (130-400); Red Blood Count 6.06 10^6/uL (4.1-5.3); Red Cell Distribution Width 13.6 % (12.1-15.1); White Blood Count 6.7 10^3/uL (4.0-10.0)
== END 2022-02-25 10:01 | disposition home or self-care (01) ==
LOC: LAB 10:06
PROVIDERS: Internal Medicine Medical Oncology; PCP Nurse Practitioner; Visit Provider Internal Medicine
DX: D75.1 Secondary polycythemia (principal)
CPT/HCPCS: 36415; 85025

== ENCOUNTER 2022-02-26 14:47 | Outpatient (CLI) | payer MEDICARE, SELFPAY ==
[2022-02-26 15:58] LABS: Alanine Aminotransferase 18 U/L (0-41); Albumin Level 4.1 g/dL (3.5-5.2); Alkaline Phosphatase 71 IU/L (40-130); Aspartate Amino Transferase 14 U/L (0-40); Blood Urea Nitrogen 22 mg/dL (8-23); Carbon Dioxide 31 mmol/L (22-29); Chloride 99 mmol/L (98-107); Globulin 2.8 g/dL (1.3-4.6); Glomerular Filtration Rate 67.6 mL/min (90-130); Glucose 100 mg/dL (65-115); NT Pro B Type Natriuretic Pept 805 pg/mL (0-125); Osmolality Calculated 289 mOsm/kg (285-295); Sodium 138 mmol/L (136-145); Total Bilirubin 0.3 mg/dL (0.15-1.2); Total Protein 6.9 g/dL (6.6-8.7)
[2022-02-26 16:02] LABS: Anion Gap 12.6 (5-19); Potassium 4.6 mmol/L (3.5-5.1)
== END 2022-02-26 14:48 | disposition home or self-care (01) ==
LOC: LAB 14:49
PROVIDERS: PCP Nurse Practitioner; Visit Provider Internal Medicine
DX: I50.32 Chronic diastolic (congestive) heart failure (principal); D75.1 Secondary polycythemia; I25.10 Atherosclerotic heart disease of native coronary artery without angina pectoris
CPT/HCPCS: 36415; 80053; 83880

== ENCOUNTER 2022-03-02 13:00 | Oncology outpatient (recurring) (ONCR) | payer MEDICARE, SELFPAY ==
[2022-02-17 14:58] LABS: Basophils % 0.6 %; Mean Platelet Volume 10.4 fL (7.4-10.4); Monocytes # 0.8 10^3/uL (0.2-0.9); Nucleated Red Blood Cells % 0 %; Red Cell Distribution Width 13.7 % (12.1-15.1)
[2022-02-17 15:12] LABS: Eosinophils # 0.2 10^3/uL (0.0-0.8); Eosinophils % 2.1 %; Hematocrit 60.2 % (42.0-52.0); Lymphocytes # 1.8 10^3/uL (0.8-4.8); Lymphocytes % 25.6 %; Mean Corpuscular HGB Conc 31.6 g/dL (30.0-36.0); Mean Corpuscular Hemoglobin 30.9 pg (28.0-34.0); Mean Corpuscular Volume 97.9 fl (80-94); Monocytes % 11.6 %; Neutrophils # 4.17 10^3/uL (1.8-7.7); Neutrophils % 59.8 %; Platelet Count 231 10^3/cmm (130-400); Red Blood Count 6.15 10^6/uL (4.1-5.3)
[2022-02-17 15:27] LABS: Alanine Aminotransferase 26 U/L (0-41); Albumin Level 4.2 g/dL (3.5-5.2); Alkaline Phosphatase 68 IU/L (40-130); Anion Gap 14.4 (5-19); Aspartate Amino Transferase 18 U/L (0-40); Blood Urea Nitrogen 24 mg/dL (8-23); Calcium 9.4 mg/dL (8.5-10.5); Carbon Dioxide 28 mmol/L (22-29); Chloride 98 mmol/L (98-107); Globulin 2.8 g/dL (1.3-4.6); Glomerular Filtration Rate 55.8 mL/min (90-130); Glucose 100 mg/dL (65-115); Osmolality Calculated 286 mOsm/kg (285-295); Potassium 4.4 mmol/L (3.5-5.1); Sodium 136 mmol/L (136-145); Total Bilirubin 0.5 mg/dL (0.15-1.2)
[2022-02-22 08:50] LABS: Basophils # 0.1 10^3/uL (0.0-0.1); Basophils % 0.8 %; Eosinophils # 0.1 10^3/uL (0.0-0.8); Eosinophils % 1.5 %; Hematocrit 60.3 % (42.0-52.0); Hemoglobin 19.6 g/dL (11.7-16.6); Lymphocytes # 1.5 10^3/uL (0.8-4.8); Lymphocytes % 23.6 %; Mean Corpuscular HGB Conc 32.5 g/dL (30.0-36.0); Mean Corpuscular Hemoglobin 31.5 pg (28.0-34.0); Mean Corpuscular Volume 96.8 fl (80-94); Mean Platelet Volume 9.9 fL (7.4-10.4); Monocytes # 0.6 10^3/uL (0.2-0.9); Monocytes % 9.3 %; Neutrophils # 4.17 10^3/uL (1.8-7.7); Neutrophils % 64.5 %; Nucleated Red Blood Cells % 0 %; Platelet Count 206 10^3/cmm (130-400); Red Blood Count 6.23 10^6/uL (4.1-5.3); Red Cell Distribution Width 13.9 % (12.1-15.1); White Blood Count 6.5 10^3/uL (4.0-10.0)
[2022-02-22 09:00] VITALS: BP 106/57; PULSE 67; RESP 18; TEMP 36.4; O2SAT 92
[2022-02-22 09:35] VITALS: BP 105/61; PULSE 64; RESP 18
[2022-03-02 14:03] LABS: Basophils # 0.1 10^3/uL (0.0-0.1); Basophils % 0.7 %; Eosinophils # 0.1 10^3/uL (0.0-0.8); Eosinophils % 1.9 %; Hematocrit 57.1 % (42.0-52.0); Hemoglobin 18.8 g/dL (11.7-16.6); Lymphocytes # 1.7 10^3/uL (0.8-4.8); Mean Corpuscular HGB Conc 32.9 g/dL (30.0-36.0); Mean Corpuscular Hemoglobin 31.1 pg (28.0-34.0); Mean Corpuscular Volume 94.4 fl (80-94); Mean Platelet Volume 11.3 fL (7.4-10.4); Monocytes # 0.8 10^3/uL (0.2-0.9); Monocytes % 11.2 %; Neutrophils # 4.19 10^3/uL (1.8-7.7); Neutrophils % 60.8 %; Nucleated Red Blood Cells % 0 %; Platelet Count 245 10^3/cmm (130-400); Red Blood Count 6.05 10^6/uL (4.1-5.3); Red Cell Distribution Width 14.6 % (12.1-15.1); White Blood Count 6.9 10^3/uL (4.0-10.0)
[2022-03-02 15:34] VITALS: BP 136/59; PULSE 65; RESP 18; TEMP 36.9; O2SAT 97
== END 2022-03-07 23:59 | disposition home or self-care (01) ==
PROVIDERS: PCP Nurse Practitioner; Visit Provider Internal Medicine Medical Oncology
DX: D75.1 Secondary polycythemia (principal)
CPT/HCPCS: 36415; 80053; 85025; 99195; 99214

== ENCOUNTER → 2022-03-18 08:15 | Outpatient (BNVA) | payer MEDICARE, SELFPAY | PROVIDERS: PCP Nurse Practitioner; Visit Provider Podiatrist Foot & Ankle Surgery | DX: I73.9 Peripheral vascular disease, unspecified (principal); G62.9 Polyneuropathy, unspecified; B35.1 Tinea unguium; E11.8 Type 2 diabetes mellitus with unspecified complications | CPT/HCPCS: 11721; 99203 ==

== ENCOUNTER 2022-03-25 12:30 | Oncology outpatient (recurring) (ONCR) | payer MEDICARE, SELFPAY ==
--- NOTE | 2022-03-23 15:15 | US_ITS ---
WS: [id number] Exam: US renal BI* [id number] Date/Time of Exam: 03/23/2022 3:15 PM Reason For Exam: evaluation for kidney tumor The kidneys are of normal size, shape and location. No solid renal mass. No renal obstruction. There is a 1.4 cm cyst in the upper pole of the right kidney. The right kidney measures 12.86 x 6 x 6.7 cm. Right renal cortex measures 1.36 cm at greatest thickness. The left kidney measures 11.36 x 6.15 x 6 .7 cm. Left renal cortex measures 1.64 cm at greatest thickness. The urinary bladder is incompletely distended but no obvious intrinsic or extrinsic filling defects were noted. US/US renal BI* [id number] IMPRESSION: 1. 1.4 cm cyst in the upper pole the right kidney. Normal left kidney. 2. No solid renal mass and no renal obstruction identified.
[2022-03-25 13:23] LABS: Basophils % 0.6 %; Eosinophils # 0.1 10^3/uL (0.0-0.8); Hematocrit 57.4 % (42.0-52.0); Hemoglobin 18.5 g/dL (11.7-16.6); Lymphocytes # 1.7 10^3/uL (0.8-4.8); Lymphocytes % 24.4 %; Mean Corpuscular HGB Conc 32.2 g/dL (30.0-36.0); Mean Corpuscular Hemoglobin 31.3 pg (28.0-34.0); Mean Platelet Volume 10.4 fL (7.4-10.4); Monocytes # 0.7 10^3/uL (0.2-0.9); Monocytes % 9.6 %; Neutrophils # 4.39 10^3/uL (1.8-7.7); Nucleated Red Blood Cells % 0 %; Platelet Count 221 10^3/cmm (130-400); Red Blood Count 5.92 10^6/uL (4.1-5.3); Red Cell Distribution Width 14.3 % (12.1-15.1)
[2022-03-25 13:53] LABS: Alanine Aminotransferase 20 U/L (0-41); Albumin Level 3.9 g/dL (3.5-5.2); Alkaline Phosphatase 70 U/L (40-130); Blood Urea Nitrogen 16 mg/dL (8-23); Calcium 9.3 mg/dL (8.5-10.5); Carbon Dioxide 29 mmol/L (22-29); Chloride 99 mmol/L (98-107); Globulin 3.1 g/dL (1.3-4.6); Glomerular Filtration Rate 67.6 mL/min (90-130); Glucose 124 mg/dL (65-115); Osmolality Calculated 287 mOsm/kg (285-295); Sodium 137 mmol/L (136-145); Total Bilirubin 0.4 mg/dL (0.15-1.2)
[2022-03-25 13:54] LABS: Anion Gap 13.8 (5-19); Aspartate Amino Transferase 19 U/L (0-40); Potassium 4.8 mmol/L (3.5-5.1)
[2022-03-25 15:01] VITALS: BP 112/60; PULSE 60; RESP 18; TEMP 36.4; O2SAT 97
== END 2022-04-07 23:59 | disposition home or self-care (01) ==
LOC: ONCMED 12:45 → RAD 12:45
PROVIDERS: Nurse Practitioner Family; PCP Nurse Practitioner; Visit Provider Internal Medicine Medical Oncology
DX: D75.1 Secondary polycythemia (principal); Z79.899 Other long term (current) drug therapy; N18.2 Chronic kidney disease, stage 2 (mild)
CPT/HCPCS: 36415; 76770; 80053; 85025; 99195; 99214

== ENCOUNTER 2022-04-13 11:21 | Oncology outpatient (recurring) (ONCR) | payer MEDICARE, SELFPAY ==
[2022-04-13 11:45] VITALS: BP 106/68; PULSE 77; RESP 18; TEMP 36.6; O2SAT 98
[2022-04-13 12:19] LABS: Basophils % 0.4 %; Eosinophils # 0.1 10^3/uL (0.0-0.8); Eosinophils % 1.4 %; Hematocrit 55.3 % (42.0-52.0); Hemoglobin 18.1 g/dL (11.7-16.6); Lymphocytes # 1.7 10^3/uL (0.8-4.8); Lymphocytes % 18.5 %; Mean Corpuscular HGB Conc 32.7 g/dL (30.0-36.0); Mean Corpuscular Hemoglobin 31.8 pg (28.0-34.0); Mean Corpuscular Volume 97.2 fl (80-94); Mean Platelet Volume 10.3 fL (7.4-10.4); Monocytes # 0.8 10^3/uL (0.2-0.9); Monocytes % 8.3 %; Neutrophils # 6.43 10^3/uL (1.8-7.7); Nucleated Red Blood Cells % 0 %; Platelet Count 216 10^3/cmm (130-400); Red Blood Count 5.69 10^6/uL (4.1-5.3); Red Cell Distribution Width 14.6 % (12.1-15.1); White Blood Count 9.1 10^3/uL (4.0-10.0)
== END 2022-05-07 23:59 | disposition home or self-care (01) ==
PROVIDERS: Nurse Practitioner; PCP Nurse Practitioner; Visit Provider Internal Medicine Medical Oncology
DX: D75.1 Secondary polycythemia (principal)
CPT/HCPCS: 85025; 99195

== ENCOUNTER → 2022-04-15 12:03 | Outpatient (BNVA) | payer MEDICARE, SELFPAY | PROVIDERS: PCP Nurse Practitioner; Visit Provider Nurse Practitioner | DX: E11.65 Type 2 diabetes mellitus with hyperglycemia (principal); Z79.4 Long term (current) use of insulin; E78.2 Mixed hyperlipidemia; K59.01 Slow transit constipation; E03.9 Hypothyroidism, unspecified; I50.9 Heart failure, unspecified; I50.32 Chronic diastolic (congestive) heart failure | CPT/HCPCS: 80053; 80061; 81000; 83036; 84443 ==

== ENCOUNTER → 2022-05-12 14:01 | Outpatient (BNVA) | payer MEDICARE, SELFPAY | PROVIDERS: PCP Nurse Practitioner; Visit Provider Internal Medicine | DX: I49.3 Ventricular premature depolarization (principal); I50.32 Chronic diastolic (congestive) heart failure; I25.10 Atherosclerotic heart disease of native coronary artery without angina pectoris; Z95.1 Presence of aortocoronary bypass graft; Z87.891 Personal history of nicotine dependence | CPT/HCPCS: 99214 ==

== ENCOUNTER → 2022-06-17 08:21 | Outpatient (BNVA) | payer MEDICARE, SELFPAY | PROVIDERS: PCP Nurse Practitioner; Visit Provider Podiatrist Foot & Ankle Surgery | DX: I73.9 Peripheral vascular disease, unspecified (principal); G62.9 Polyneuropathy, unspecified; B35.1 Tinea unguium; E11.8 Type 2 diabetes mellitus with unspecified complications; Z79.4 Long term (current) use of insulin | CPT/HCPCS: 11721 ==

== ENCOUNTER 2022-06-24 11:30 | Oncology outpatient (recurring) (ONCR) | payer MEDICARE, SELFPAY ==
[2022-06-11 10:32] LABS: Basophils # 0.1 10^3/uL (0.0-0.1); Basophils % 0.6 %; Eosinophils # 0.1 10^3/uL (0.0-0.8); Eosinophils % 1.3 %; Hematocrit 54.9 % (42.0-52.0); Hemoglobin 17.8 g/dL (11.7-16.6); Lymphocytes # 1.3 10^3/uL (0.8-4.8); Lymphocytes % 17.1 %; Mean Corpuscular HGB Conc 32.4 g/dL (30.0-36.0); Mean Corpuscular Hemoglobin 32.5 pg (28.0-34.0); Mean Corpuscular Volume 100.2 fl (80-94); Mean Platelet Volume 11.1 fL (7.4-10.4); Monocytes # 0.7 10^3/uL (0.2-0.9); Monocytes % 9.3 %; Neutrophils # 5.51 10^3/uL (1.8-7.7); Neutrophils % 71.3 %; Nucleated Red Blood Cells % 0 %; Platelet Count 230 10^3/cmm (130-400); Red Blood Count 5.48 10^6/uL (4.1-5.3); Red Cell Distribution Width 13.7 % (12.1-15.1); White Blood Count 7.7 10^3/uL (4.0-10.0)
[2022-06-11 10:44] LABS: Ferritin 214 ng/mL (30-400)
[2022-06-11 11:13] LABS: Slide Review Slide Review Perform
[2022-06-11 11:21] LABS: Iron 163 ug/dL (59-158); Percent Saturation 30.3 % (20-50); Total Iron Binding Capacity 537 mcg/dl; Unsaturated Iron Binding 374 ug/dL (112-347)
[2022-06-11 12:07] VITALS: BP 102/64; PULSE 60; RESP 18; TEMP 36.8; O2SAT 98
[2022-06-24 11:13] LABS: Basophils % 0.5 %; Eosinophils # 0.1 10^3/uL (0.0-0.8); Eosinophils % 1.1 %; Hematocrit 51.8 % (42.0-52.0); Hemoglobin 17.2 g/dL (11.7-16.6); Lymphocytes # 1.7 10^3/uL (0.8-4.8); Lymphocytes % 21.1 %; Mean Corpuscular HGB Conc 33.2 g/dL (30.0-36.0); Mean Corpuscular Hemoglobin 32.3 pg (28.0-34.0); Mean Corpuscular Volume 97.4 fl (80-94); Mean Platelet Volume 9.9 fL (7.4-10.4); Monocytes # 0.6 10^3/uL (0.2-0.9); Monocytes % 7.4 %; Neutrophils % 69.5 %; Nucleated Red Blood Cells % 0 %; Platelet Count 281 10^3/cmm (130-400); Red Blood Count 5.32 10^6/uL (4.1-5.3); Red Cell Distribution Width 13.2 % (12.1-15.1); White Blood Count 8.2 10^3/uL (4.0-10.0)
[2022-06-24 12:30] VITALS: BP 99/66; PULSE 85; RESP 18; TEMP 36.1; O2SAT 94
== END 2022-07-07 23:59 | disposition home or self-care (01) ==
PROVIDERS: Nurse Practitioner Family; PCP Nurse Practitioner; Visit Provider Internal Medicine Medical Oncology
DX: D75.1 Secondary polycythemia (principal)
CPT/HCPCS: 82728; 83540; 83550; 85025; 99195

== ENCOUNTER → 2022-07-08 11:06 | Outpatient (BNVA) | payer MEDICARE, SELFPAY | PROVIDERS: PCP Nurse Practitioner; Visit Provider Nurse Practitioner | DX: E11.65 Type 2 diabetes mellitus with hyperglycemia (principal); Z79.4 Long term (current) use of insulin; I50.32 Chronic diastolic (congestive) heart failure; K59.01 Slow transit constipation; E78.2 Mixed hyperlipidemia; J98.01 Acute bronchospasm; E03.9 Hypothyroidism, unspecified; I50.9 Heart failure, unspecified | CPT/HCPCS: 80053; 83036 ==

== ENCOUNTER 2022-07-28 10:00 | Oncology outpatient (recurring) (ONCR) | payer MEDICARE, SELFPAY ==
[2022-07-14 14:46] LABS: Basophils # 0.1 10^3/uL (0.0-0.1); Basophils % 0.6 %; Eosinophils # 0.1 10^3/uL (0.0-0.8); Eosinophils % 1.3 %; Hematocrit 55.1 % (42.0-52.0); Hemoglobin 17.7 g/dL (11.7-16.6); Lymphocytes # 2.3 10^3/uL (0.8-4.8); Lymphocytes % 27.5 %; Mean Corpuscular HGB Conc 32.1 g/dL (30.0-36.0); Mean Corpuscular Hemoglobin 32.3 pg (28.0-34.0); Mean Corpuscular Volume 100.5 fl (80-94); Mean Platelet Volume 10.3 fL (7.4-10.4); Monocytes # 0.8 10^3/uL (0.2-0.9); Monocytes % 9.9 %; Neutrophils # 4.94 10^3/uL (1.8-7.7); Neutrophils % 60.3 %; Nucleated Red Blood Cells % 0 %; Platelet Count 242 10^3/cmm (130-400); Red Blood Count 5.48 10^6/uL (4.1-5.3); White Blood Count 8.2 10^3/uL (4.0-10.0)
[2022-07-14 15:17] VITALS: BP 106/75; PULSE 70; O2SAT 92
[2022-07-28 10:58] LABS: Basophils % 0.5 %; Eosinophils # 0.1 10^3/uL (0.0-0.8); Eosinophils % 1.3 %; Hematocrit 51.6 % (42.0-52.0); Hemoglobin 16.3 g/dL (11.7-16.6); Lymphocytes # 1.3 10^3/uL (0.8-4.8); Lymphocytes % 15.9 %; Mean Corpuscular HGB Conc 31.6 g/dL (30.0-36.0); Mean Corpuscular Hemoglobin 31.8 pg (28.0-34.0); Mean Corpuscular Volume 100.8 fl (80-94); Mean Platelet Volume 9.6 fL (7.4-10.4); Monocytes # 0.6 10^3/uL (0.2-0.9); Monocytes % 6.9 %; Neutrophils # 5.99 10^3/uL (1.8-7.7); Neutrophils % 74.9 %; Nucleated Red Blood Cells % 0 %; Platelet Count 240 10^3/cmm (130-400); Red Blood Count 5.12 10^6/uL (4.1-5.3); Red Cell Distribution Width 13.5 % (12.1-15.1)
[2022-07-28 11:45] VITALS: BP 108/62; PULSE 84; RESP 18; TEMP 36.1; O2SAT 98
== END 2022-08-07 23:59 | disposition home or self-care (01) ==
PROVIDERS: Nurse Practitioner Family; PCP Nurse Practitioner; Visit Provider Internal Medicine Medical Oncology
DX: D75.1 Secondary polycythemia (principal); Z79.899 Other long term (current) drug therapy
CPT/HCPCS: 36415; 85025; 99195; 99214

== ENCOUNTER 2022-08-25 12:30 | Oncology outpatient (recurring) (ONCR) | payer MEDICARE, SELFPAY ==
[2022-08-11 10:50] VITALS: BP 134/84; PULSE 84; RESP 20; TEMP 36.6; O2SAT 99
[2022-08-11 11:18] LABS: Basophils # 0.1 10^3/uL (0.0-0.1); Basophils % 0.5 %; Eosinophils % 0.4 %; Hematocrit 50.3 % (42.0-52.0); Hemoglobin 15.7 g/dL (11.7-16.6); Lymphocytes # 0.8 10^3/uL (0.8-4.8); Lymphocytes % 8.3 %; Mean Corpuscular HGB Conc 31.2 g/dL (30.0-36.0); Mean Corpuscular Hemoglobin 31.5 pg (28.0-34.0); Mean Platelet Volume 10.2 fL (7.4-10.4); Monocytes # 0.5 10^3/uL (0.2-0.9); Monocytes % 4.7 %; Neutrophils # 8.27 10^3/uL (1.8-7.7); Neutrophils % 85.6 %; Nucleated Red Blood Cells % 0 %; Platelet Count 244 10^3/cmm (130-400); Red Blood Count 4.98 10^6/uL (4.1-5.3); Red Cell Distribution Width 13.5 % (12.1-15.1); White Blood Count 9.7 10^3/uL (4.0-10.0)
== END 2022-09-07 23:59 | disposition home or self-care (01) ==
PROVIDERS: PCP Nurse Practitioner; Visit Provider Internal Medicine Medical Oncology
DX: D75.1 Secondary polycythemia (principal)
CPT/HCPCS: 85025

== ENCOUNTER 2022-09-16 12:49 | Inpatient (IN) | payer MEDICARE, SELFPAY ==
[2022-09-16] VITALS (8 sets, daily range): BP systolic 93–119; BP diastolic 60–78; PULSE 59–76; RESP 16–24; TEMP 36.4; O2SAT 90–95; BMI 43.4
--- NOTE | 2022-09-16 12:51 | ED_ITS ---
HPI - SOB/Dyspnea General: Chief Complaint: Shortness of Breath/Dyspnea Stated Complaint: SOB/ LOW O2 Time Seen by Provider: 09/16/22 12:49 History of Present Illness: HPI Narrative: Mr. Perez is a 62-year-old gentleman with complex past medical history inclu ding COPD with chronic hypoxic respiratory failure, peripheral arterial disease, CKD, CHF, CAD, diabetes, hyperlipidemia presenting to the emergency department for shortness of breath. Reports gradual onset of symptoms approximately 3 weeks ago that is progressively worsened. He reports marked decreased exertional tolerance and chest pain which is pressure in the middle of his chest with even minimal exertion. Also endorses lower extremity edema and weight gain. He reports compliance with his medication regimen. He has had mildly increased productive sputum. Intensity symptoms moderate to severe and worse with time. No other specific changes in health, exacerbating, or alleviating factors identified. Onset (ago): week(s) Timing: progressively worsening Severity: severe Exacerbating factors: lying flat, exertion and movement Relieving factors: nothing Known history of: COPD, congestive heart failure and diabetes Associated symptoms: Reports chest pain Review of Systems General: Reports: 10 or more systems reviewed and unremarkable except in HPI and below Card: Reports: chest pain [facility] ED PFSH: Medical History Adult hypothyroidism CAD (coronary artery disease) CHF (congestive heart failure) CKD (chronic kidney disease), stage II Diabetes mellitus with hyperglycemia, with long-term current use of insulin Frequent PVCs Hypoxemia Mixed hyperlipidemia Obstructive sleep apnea Secondary polycythemia Slow transit constipation Vitamin D insufficiency Surgical History H/O angioplasty 2020 - Dr. Velez [facility] History of coronary artery bypass graft 2 grafts in 2006 Family History Mother Chronic kidney disease (CKD) at age 85 CAD (coronary artery disease) Pace maker Hypertension Father Cancer Prostate Sister Hypertension Osteoporosis Other Diabetes Hyperlipidemia Denies family history of Clotting disorder Dementia Psychiatric illness Suicide Anesthesia complication Bleeding disorder Lung disease Stroke Social History Smoking and tobacco status: former smoker Second hand smoke exposure: No Smoking risk assessment/counseling performed?: No Alcohol intake: never Desire information about alcohol rehabilitation?: No Counseling given: No Desire information about substance/drug rehabilitation?: No Counseling given: No Caregiver/support person: No Lives independently: Yes Household members: significant other Housing: House Marital status: Single service: No Current occupational status: unemployed Current gender identity: Male Physical Exam Const: COMMON NORMALS: alert GENERAL APPEARANCE: cooperative and well developed HENMT: COMMON NORMALS: normocephalic and atraumatic HEAD & SCALP: normocephalic and atraumatic Eye: COMMON NORMALS: conjunctivae normal CONJUNCTIVA: Yes conjunctivae normal SCLERA: sclerae normal Neck/C-Spine: COMMON NORMALS: supple GENERAL: Yes trachea midline Resp: EFFORT & INSPECTION: Yes able to speak in complete sentences and Yes tachypneic AUSCULTATION: diminished lung sounds Cardio: COMMON NORMALS: regular rate and regular rhythm RATE: regular rate RHYTHM: regular rhythm GI: COMMON NORMALS: Soft to palpation PALPATION: Yes Soft to palpation and No Tenderness to palpation present (GI) Extremity: GENERAL: Yes normal exam except as noted and Yes edema Neuro: COMMON NORMALS: moves all extremities SENSORIUM/ORIENTATION: Yes alert and No Orientation impaired Psych: COMMON NORMALS: mental status grossly normal and Normal thought process present THOUGHT PROCESS: Normal thought process present Course Vital Signs: Vital signs: Vital Signs Temperature 97.6 F 09/18/22 14:12 Pulse Rate 73 09/18/22 14:12 Respiratory Rate 18 09/18/22 14:12 Blood Pressure 138/84 09/18/22 14:12 Pulse Oximetry 92 09/18/22 14:12 Oxygen Delivery Pa thod 09/18/22 12:00 Oxygen Flow Rate 5 09/18/22 12:00 MDM - SOB/Dyspnea Medical Decision Making 62-year-old gentleman presenting with respiratory symptoms. He has worsening oxygen requirement and increased work of breathing. He is nontoxic. EKG notable for sinus rhythm with first-degree AV block, nonspecific ST segment abnormalities, no STEMI. Similar on repeat. Labs with no leukocytosis, normal hemoglobin and platelet count. Metabolic panel mildly worse than prior with elevated creatinine. Negative range 2-hour delta troponin. BNP is elevated. Viral panel negative. Chest x-ray similar to prior with no lobar consolidation or pneumothorax. Most likely etiology of patient's symptoms is multifactorial including heart failure and COPD exacerbation. There is acute on chronic respiratory failure with hypoxia. Patient given Lasix. The results of ED evaluation were discussed with the patient including plan for admission due to requirement for level of care not available if discharged to prevent significant worsening/deterioration. Patient agreeable with plan. Discussed with hospitalist service who was agreeable to admit patient. Medical Records I reviewed the patient's medical records. Lab Data I reviewed the patient's lab results. 09/18/22 04:53 09/18/22 04:53 Labs/Radiology: Radiology Impressions Chest X-Ray 09/16/22 13:04 IMPRESSION: No acute findings. Laboratory Results WBC 7.0 10^3/uL (4.0-10.0) 09/16/22 13:20 RBC 4.76 10^6/uL (4.1-5.3) 09/16/22 13:20 Hgb 15.2 g/dL (11.7-16.6) 09/16/22 13:20 Hct 48.4 % (42.0-52.0) 09/16/22 13:20 MCV 101.7 fl (80-94) H 09/16/22 13:20 MCH 31.9 pg (28.0-34.0) 09/16/22 13:20 MCHC 31.4 g/dL (30.0-36.0) 09/16/22 13:20 RDW 15.0 % (12.1-15.1) 09/16/22 13:20 Plt Count 235 10^3/cmm (130-400) 09/16/22 13:20 MPV 10.0 fL (7.4-10.4) 09/16/22 13:20 Neut % (Auto) 71.8 % 09/16/22 13:20 Lymph % (Auto) 15.9 % 09/16/22 13:20 Mcdonald % (Auto) 9.9 % 09/16/22 13:20 Eos % (Auto) 1.7 % 09/16/22 13:20 Baso % (Auto) 0.4 % 09/16/22 13:20 Neut # (Auto) 5.00 10^3/uL (1.8-7.7) 09/16/22 13:20 Lymph # (Auto) 1.1 10^3/uL (0.8-4.8) 09/16/22 13:20 Mcdonald # (Auto) 0.7 10^3/uL (0.2-0.9) 09/16/22 13:20 Eos # (Auto) 0.1 10^3/uL (0.0-0.8) 09/16/22 13:20 Baso # (Auto) 0.0 10^3/uL (0.0-0.1) 09/16/22 13:20 Nucleated RBC % (auto) 0 % 09/16/22 13:20 Nucleated RBCs # 0.0 /100WBC 09/16/22 13:20 Sodium 138 mmol/L (136-145) 09/16/22 13:20 Potassium 4.9 mmol/L (3.5-5.1) 09/16/22 13:20 Chloride 100 mmol/L (98-107) 09/16/22 13:20 Carbon Dioxide 26 mmol/L (22-29) 09/16/22 13:20 Anion Gap 16.9 (5-19) 09/16/22 13:20 BUN 28 mg/dL (8-23) H 09/16/22 13:20 Creatinine 1.3 mg/dL (0.7-1.2) H 09/16/22 13:20 GFR Calculation 55.6 mL/min (90-130) L 09/16/22 13:20 Glucose 127 mg/dL (65-115) H 09/16/22 13:20 Calculated Osmolality 293 mOsm/kg (285-295) 09/16/22 13:20 Calcium 8.9 mg/dL (8.5-10.5) 09/16/22 13:20 Total Bilirubin 0.3 mg/dL (0.15-1.2) 09/16/22 13:20 AST 18 U/L (0-40) 09/16/22 13:20 ALT 20 U/L (0-41) 09/16/22 13:20 Alkaline Phosphatase 55 U/L (40-130) 09/16/22 13:20 Troponin T Baseline 33 ng/L (0-15) H 09/16/22 13:20 Troponin T 120 Minute 35.20 ng/L (0-15) H 09/16/22 14:57 Delta Troponin T 2.20 ABS# (0-10) 09/16/22 14:57 C-Reactive Protein 3.0 mg/L (0.0-4.9) 09/16/22 13:20 NT-Pro-B Natriuret Pep 4262 pg/mL (0-125) H 09/16/22 13:20 Total Protein 5.8 g/dL (6.6-8.7) L 09/16/22 13:20 Albumin 3.8 g/dL (3.5-5.2) 09/16/22 13:20 Globulin 2.0 g/dL (1.3-4.6) 09/16/22 13:20 Procalcitonin 0.02 ng/mL (0-0.5) 09/16/22 13:20 TSH 0.98 uIU/mL (0.27-4.20) 09/16/22 13:20 Coronavirus 229E (PCR) Not detected (NOT DETECT) 09/16/22 13:20 SARS-CoV-2 (PCR) Not detected (NOT DETECT) 09/16/22 13:20 Discharge Plan Discharge Patient Disposition: Placed in Observation Admit Provider: Ovsaldo Alicea Clinical Impression: Acute exacerbation of CHF (congestive heart failure), Acute on chronic respiratory failure with hypoxemia, Chest pain, exertional Discharge Diet: Cardiac Discharge Activity: Resume usual activity Coding Level of Care Code ED Mill Tender for Zaire Sin
--- NOTE | 2022-09-16 13:04 | XRR_ITS ---
PROCEDURE INFORMATION: Exam: XR Chest Exam date and time: 09/16/2022 1:31 PM Age: 62 years old Clinical indication: Shortness of breath; Patient HX: Low o2; Additional info: SOB TECHNIQUE: Imaging protocol: Radiologic exam of the chest. Views: 1 view. COMPARISON: CR XR chest 1V portable [id number] 07/15/2021 6:17 AM FINDINGS: Lungs: There is no consolidation. Pleural spaces: There is no pleural effusion or pneumothorax. Heart/Mediastinum: There is mild enlargement of the cardiac silhouette. Bones/joints: Sternal wires are present. There is no displacement to suggest sternal dehiscence. XR/XR chest 1V portable [id number] IMPRESSION: No acute findings.
[2022-09-16 13:38] LABS: Basophils % 0.4 %; Eosinophils # 0.1 10^3/uL (0.0-0.8); Eosinophils % 1.7 %; Hematocrit 48.4 % (42.0-52.0); Hemoglobin 15.2 g/dL (11.7-16.6); Lymphocytes # 1.1 10^3/uL (0.8-4.8); Lymphocytes % 15.9 %; Mean Corpuscular HGB Conc 31.4 g/dL (30.0-36.0); Mean Corpuscular Hemoglobin 31.9 pg (28.0-34.0); Mean Corpuscular Volume 101.7 fl (80-94); Monocytes # 0.7 10^3/uL (0.2-0.9); Monocytes % 9.9 %; Neutrophils % 71.8 %; Nucleated Red Blood Cells % 0 %; Platelet Count 235 10^3/cmm (130-400); Red Blood Count 4.76 10^6/uL (4.1-5.3)
--- NOTE | 2022-09-16 13:38 | ECG_ITS ---
[facility] Test Date: 2022-09-16 Pat Name: Henry Perez Department: Room: Gender: Male Lead Shipper: : 1960 Requested By: Sarkis Vicente Order Number: [id number] Hankins MD: Stacy North M.D. Measurements Intervals [place] Rate: 62 P: 39 VT: 260 QRS: 223 QRSD: 101 T: -25 QT: 375 QTc: 381 Interpretive Statements SINUS RHYTHM WITH FIRST DEGREE AV BLOCK POSSIBLE LEFT ATRIAL ENLARGEMENT [-0.1mV P-WAVE IN V1/V2] INCOMPLETE RIGHT BUNDLE BRANCH BLOCK [90+ ms QRS DURATION, TERMINAL R IN V1/V2, 40+ ms S IN I/aVL/V4/V5/V6] INFERIOR MYOCARDIAL INFARCTION , OF INDETERMINATE AGE [40+ ms Q WAVE AND/OR ST/T ABNORMALITY IN II/aVF] ANTEROSEPTAL MYOCARDIAL INFARCTION , OF INDETERMINATE AGE [40+ ms Q WAVE IN V1-V4] Compared to ECG 07/12/2021 09:56:11 Incomplete right bundle-branch block now present Myocardial infarct finding now present Right ventricular hypertrophy no longer present T-wave abnormality no longer present Possible ischemia no longer present Electronically Signed On 09-17-2022 7:56:34 BOARD LINER OPERATOR by Stacy North M.D. [email or web address]
[2022-09-16 14:01] LABS: Troponin(5th) Baseline 33 ng/L (0-15)
[2022-09-16 14:37] LABS: NT Pro B Type Natriuretic Pept 4262 pg/mL (0-125); Procalcitonin 0.02 ng/mL (0-0.5); Thyroid Stimulating Hormone 0.98 uIU/mL (0.27-4.20)
[2022-09-16 14:48] LABS: Alanine Aminotransferase 20 U/L (0-41); Albumin Level 3.8 g/dL (3.5-5.2); Alkaline Phosphatase 55 U/L (40-130); Anion Gap 16.9 (5-19); Aspartate Amino Transferase 18 U/L (0-40); Blood Urea Nitrogen 28 mg/dL (8-23); Calcium 8.9 mg/dL (8.5-10.5); Carbon Dioxide 26 mmol/L (22-29); Chloride 100 mmol/L (98-107); Glomerular Filtration Rate 55.6 mL/min (90-130); Glucose 127 mg/dL (65-115); Osmolality Calculated 293 mOsm/kg (285-295); Potassium 4.9 mmol/L (3.5-5.1); Sodium 138 mmol/L (136-145); Total Bilirubin 0.3 mg/dL (0.15-1.2); Total Protein 5.8 g/dL (6.6-8.7)
--- NOTE | 2022-09-16 15:05 | ECG_ITS ---
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 Measurements Intervals [place] Rate: 59 P: 55 HI: 290 QRS: 226 QRSD: 107 T: -28 QT: 381 QTc: 379 Interpretive Statements SINUS BRADYCARDIA WITH FIRST DEGREE AV BLOCK INCOMPLETE RIGHT BUNDLE BRANCH BLOCK [90+ ms QRS DURATION, TERMINAL R IN V1/V2, 40+ ms S IN I/aVL/V4/V5/V6] INFERIOR MYOCARDIAL INFARCTION , OF INDETERMINATE AGE [40+ ms Q WAVE AND/OR ST/T ABNORMALITY IN II/aVF] ANTEROSEPTAL MYOCARDIAL INFARCTION , OF INDETERMINATE AGE [40+ ms Q WAVE IN V1-V4] Compared to ECG 09/16/2022 13:38:43 Sinus rhythm no longer present Myocardial infarct finding still present Electronically Signed On 09-17-2022 8:13:22 FIELD INSTRUCTOR by Stacy North M.D. [id number]
[2022-09-16 15:22] LABS: Adenovirus Not Detected (NOT DETECT); Chlamydia Pneumoniae Not Detected (NOT DETECT); Coronavirus 229E,HKU1,NL63,OC4 Not Detected (NOT DETECT); Human Metapneumovirus Not Detected (NOT DETECT); Human Rhinovirus/Enterovirus Not Detected (NOT DETECT); Influenza A Not Detected (NOT DETECT); Influenza A H1 Not Detected (NOT DETECT); Influenza A H1-2009 Not Detected (NOT DETECT); Influenza A H3 Not Detected (NOT DETECT); Influenza B Not Detected (NOT DETECT); Mycoplasma Pneumoniae Not Detected (NOT DETECT); Parainfluenza Virus Type 1 Not Detected (NOT DETECT); Parainfluenza Virus Type 2 Not Detected (NOT DETECT); Parainfluenza Virus Type 3 Not Detected (NOT DETECT); Parainfluenza Virus Type 4 Not Detected (NOT DETECT); Respiratory Syncytial Virus A Not Detected (NOT DETECT); Respiratory Syncytial Virus B Not Detected (NOT DETECT); SARS-COV-2 Not Detected (NOT DETECT)
[2022-09-16] MEDS: FUROsemide 10 mg/mL SDV 4mL 40 MG IVP (15:47)
--- NOTE | 2022-09-16 16:21 | PM.HP ---
Providers/Chief Complaint Admitting Physician: Osvaldo Alicea Primary Care Provider: Catarina Olsen, WEIGHT YARDAGE CHECKER-C Chief Complaint: SOB/ LOW O2 History of Present Illness Pleasant 62-year-old gentleman with history of CAD, CABG, COPD, chronically on 3 L of oxygen, family history of JACINTO but reportedly with condition improved, not on CPAP reports underwent sleep study and told he did not need it, history of diastolic CHF, CKD, polycythemia udergoing phlebotomies, most recently says had 5 units phlebotomized, other comorbidities, presents to the hospital due to several weeks of gradually worsening dyspnea, worse with exertion now even over short distances, orthopnea, lower extremity edema, but also cough productive of greenish-yellow sputum, and has been coughing up more. He states about 2 weeks ago he went to urgent care and was given a prescription of prednisone and an antibiotic after which she did feel better. However, he states that subsequently he was with his nephew who had influenza, and then started feeling worse again. In ER he is noted requiring 5 L of oxygen to maintain saturation in low 90s compared to his usual 3. He is afebrile, without leukocytosis, unremarkable CBC, unremarkable electrolytes, however, elevated BUN of 28, creatinine elevated 1.3. NT proBNP is higher than priors at 4262. Baseline troponin 33, chart 135. EKG with sinus bradycardia, first-degree block, incomplete RBBB, Q waves in 3 and aVF, Q waves in V1-V3. TSH is unremarkable. COVID-19 PCR is negative. Chest x-ray is unremarkable. Review of Systems Const: Denies: fever(s), chills, body aches or malaise Card: Reports: edema, swelling of feet/ankles, dyspnea on exertion and orthopnea; Denies: chest pain or pre-syncope Resp: Reports: dyspnea and productive cough; Denies: change in phlegm color or hemoptysis GI: Denies: abdominal pain, nausea, vomiting, diarrhea, constipation, hematochezia or melena : Denies: flank pain, difficulty urinating, urinary frequency or hematuria Musc: Denies: joint swelling or joint redness Skin/Breast: Denies: rash or new lesions Neuro: Denies: headache(s) or weakness in extremities Endo: Denies: polyuria or polydipsia Kenn/Lymph: Reports: other (Polycythemia); Denies: easy bleeding Medications/Allergies Home Medications Medication Instructions Recorded Confirmed Last Taken Type aspirin 81 mg tablet,delayed 81 mg PO DAILY 12/24/19 09/16/22 09/16/22 History release (Adult Low Dose Aspirin) cholecalciferol (vitamin D3) 125 10,000 unit PO DAILY 03/02/21 09/16/22 09/16/22 History mcg (5,000 unit) capsule isosorbide dinitrate 10 mg tablet 5 mg PO BID #180 tabs 10/28/21 09/16/22 09/16/22 Rx blood sugar diagnostic #50 ea 11/17/21 09/16/22 Unknown Rx nitroglycerin 0.4 mg sublingual 0.4 mg sublingual Q5M PRN chest 11/17/21 09/16/22 Unknown Rx tablet pain #25 tabs omega-3 fatty acids 500 mg capsule 500 mg PO DAILY 12/28/21 09/16/22 09/16/22 History magnesium oxide 500 mg capsule 500 mg PO DAILY 02/17/22 09/16/22 09/16/22 History mexiletine 200 mg capsule 200 mg PO Q8H #90 caps 02/17/22 09/16/22 09/16/22 Rx triamcinolone acetonide 0.1 % 1 applic topical BID #80 grams 03/02/22 09/16/22 Unknown Rx topical ointment furosemide 20 mg tablet 20 mg PO BID #180 tabs 05/12/22 09/16/22 09/16/22 Rx albuterol sulfate 2.5 mg/3 mL 2.5 mg (3 mL) inhalation .2 times 07/08/22 09/16/22 Unknown Rx (0.083 %) solution for nebulization day PRN shortness of breath or wheezing #180 mL atorvastatin 20 mg tablet 20 mg PO BEDTIME #90 tabs 07/08/22 09/16/22 09/15/22 Rx blood sugar diagnostic (OneTouch #100 ea 07/08/22 09/16/22 Unknown Rx Ultra Test strips) docusate sodium 100 mg capsule 100 mg PO DAILY #90 caps 07/08/22 09/16/22 09/16/22 Rx (Colace) fenofibrate nanocrystallized 48 mg 48 mg PO DAILY #90 tabs 07/08/22 09/16/22 09/16/22 Rx tablet (Tricor) levothyroxine 175 mcg tablet 175 mcg PO DAILY #90 tabs 07/08/22 09/16/22 09/16/22 Rx lisinopril 2.5 mg tablet 2.5 mg PO DAILY #90 tabs 07/08/22 09/16/22 09/16/22 Rx pen needle, diabetic 33 gauge x #100 ea 07/08/22 09/16/22 Unknown Rx semaglutide 1 mg/dose (2 mg/1.5 1 mg (0.75 mL) SUBCUT .weekly #3 mL 07/08/22 09/16/22 09/15/22 Rx mL) subcutaneous pen injector spironolactone 25 mg tablet 25 mg PO DAILY #90 tabs 07/08/22 09/16/22 09/16/22 Rx insulin detemir U-100 100 unit/mL 40 unit SUBCUT DAILY 09/16/22 09/16/22 09/16/22 History (3 mL) subcutaneous pen (Levemir FlexTouch U-100 Insulin) metoprolol tartrate 25 mg tablet 25 mg PO DAILY 09/16/22 09/16/22 09/15/22 History Allergies Allergy/AdvReac Type Severity Reaction Status Date / Time empagliflozin Allergy Intermediate Hives Verified 09/16/22 14:05 influenza virus vaccine ts Allergy Intermediate ALGY-Conges Verified 09/16/22 14:05 [id number] (36 mos,up) shun [From Fluarix] Penicillins Allergy Intermediate Hives Verified 09/16/22 14:05 glipizide Allergy ALGY-Rash Verified 09/16/22 14:05 PFSH Acute PFSH: Medical History Adult hypothyroidism CAD (coronary artery disease) CHF (congestive heart failure) CKD (chronic kidney disease), stage II Diabetes mellitus with hyperglycemia, with long-term current use of insulin Frequent PVCs Hypoxemia Mixed hyperlipidemia Obstructive sleep apnea Secondary polycythemia Slow transit constipation Vitamin D insufficiency Surgical History H/O angioplasty 2020 - Dr. Velez [facility] [place] History of coronary artery bypass graft 2 grafts in 2006 Family History Mother Chronic kidney disease (CKD) at age 85 CAD (coronary artery disease) Pace maker Hypertension Father Cancer Prostate Sister Hypertension Osteoporosis Other Diabetes Hyperlipidemia Denies family history of Clotting disorder Dementia Psychiatric illness Suicide Anesthesia complication Bleeding disorder Lung disease Stroke Social History Smoking and tobacco status: former smoker Second hand smoke exposure: No Smoking risk assessment/counseling performed?: No Alcohol intake: never Desire information about alcohol rehabilitation?: No Counseling given: No Desire information about substance/drug rehabilitation?: No Counseling given: No Caregiver/support person: No Lives independently: Yes Household members: significant other Housing: House Marital status: Single service: No Current occupational status: unemployed History of recent travel: No Current gender identity: Male Vitals/I&O/Wt Last Vital Signs Temp 97.6 F 09/16/22 12:52 Pulse 61 09/16/22 15:49 Resp 16 09/16/22 15:49 BP 117/72 09/16/22 15:49 Pulse Ox 92 09/16/22 15:49 O2 Del Method 09/16/22 15:49 O2 Flow Rate 5 09/16/22 15:49 Weight last 48 hrs Weight 149.232 kg Physical Exam Const: COMMON NORMALS: patient oriented x3 and alert GENERAL APPEARANCE: cooperative NUTRITIONAL APPEARANCE: obese ORIENTATION/CONSCIOUSNESS: Yes awake HENMT: COMMON NORMALS: oropharynx normal Neck/C-Spine: COMMON NORMALS: no JVD Resp: COMMON NORMALS: normal respiratory effort AUSCULTATION: diminished lung sounds bilateral Cardio: COMMON NORMALS: no JVD, regular rhythm, S1 normal heart sound present, S2 normal heart sound present and No murmurs present (Cardio) RHYTHM: regular rhythm HEART SOUNDS: S1 normal heart sound present and S2 normal heart sound present GI: COMMON NORMALS: Normal to inspection, nondistended, normoactive bowel sounds present, Soft to palpation and non-tender PALPATION: Yes Soft to palpation Extremity: COMMON NORMALS: no joint enlargement GENERAL: Yes edema (2+) Neuro: COMMON NORMALS: patient oriented x3 and moves all extremities SENSORIUM/ORIENTATION: Yes alert Skin: COMMON NORMALS: no rashes or lesions noted GENERAL SKIN EXAM: no rashes or lesions noted Data 09/16/22 13:20 09/16/22 13:20 A&P Assessment and plan (1) Acute on chronic respiratory failure with hypoxemia: Combination of acute CHF exacerbation, as well as COPD exacerbation. Continue oxygen support, wean down as tolerating. Treat conditions as below. Discussed with ER physician. Reviewed prior admission DC summary, hematology notes. Discussed with his RN. Recent flu exposure, but COVID-19 panel which includes influenza is negative. Chest x-ray unremarkable (2) Acute exacerbation of CHF (congestive heart failure): Acute diastolic CHF exacerbation, continue IV diuresis with Lasix 40 mg IV twice daily. Failure of home treatment with oral Lasix. Monitor I&O, weights. Reviewed chemistry panel. LISSA may make it difficult to treat CHF. Discussed with him. Needs close monitoring of renal function and electrolytes with IV diuresis as discussed with him which may lead to worsening of renal function. Requested chemistry panel. (3) COPD exacerbation: Severe suspicion of COPD with cough, dyspnea, purulent sputum, respiratory failure requiring 5 L nasal cannula oxygen compared to usual 3. Blood count reviewed, vitals reviewed. No sign of sepsis. Procalcitonin reviewed. Discussed with him treatment with IV steroid, Solu-Medrol, antibiotic, will start Levaquin breathing treatments, pulm toilet. Follow-up white count requested. (4) Acute kidney injury superimposed on CKD: Creatinine result appreciated. Creatinine baseline usually 1.1. Currently 1.3. He denies any NSAID use. He does take lisinopril. He does state that his blood pressures decrease after phlebotomy and he did have recently phlebotomy with removal of he states 5 units. For now we will hold lisinopril. Follow-up renal function, follow-up electrolytes, anion gap and bicarb. Plan History of JACINTO which had improved, reports had a sleep study which said he did not need CPAP. CAD, CABG DM2 Polycythemia on intermittent phlebotomies, follows with hematology Obesity Other problems Attestations Medical Necessity Statement*: Admission of over 2 midnights anticipated for assessment management of respiratory failure with acute CHF despite home treatment with diuretics and requiring close monitoring due to LISSA as well, severe COPD exacerbation. Coding Level of Care Code 42832 High MDM includes risk/complexity, reviewing previous or external records, reviewing test results, ordering lab/other test(s) and discussion of management or test(s) w/ other healthcare professional Diagnoses Acute on chronic respiratory failure with hypoxemia J96.21 Acute exacerbation of CHF (congestive heart failure) I50.9 COPD exacerbation J44.1 Acute kidney injury superimposed on CKD N17.9; N18.9
[2022-09-16] MEDS: levofloxacin-dextrose 5 % 750 MG/150 ML PREMIX 100 MG IV (17:55)
[2022-09-16 19:44] LABS: Troponin 5 6HR 35.09 ng/L (0-15)
[2022-09-16 19:48] LABS: Troponin 5 6HR Delta 2.09 ng/L (0-12)
[2022-09-16 21:19] LABS: Glucose Point of Care 155 mg/dL (70-110)
[2022-09-16] MEDS: heparin 5,000 unit/mL INJ 1 mL 5000 UNIT SUBCUT (21:38)
--- NOTE | 2022-09-16 22:34 | ECG_ITS ---
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 Measurements Intervals [place] Rate: 78 P: 57 IA: 266 QRS: 207 QRSD: 118 T: 11 QT: 384 QTc: 440 Interpretive Statements SINUS RHYTHM WITH FIRST DEGREE AV BLOCK POSSIBLE LEFT ATRIAL ENLARGEMENT [-0.1mV P-WAVE IN V1/V2] RIGHT AXIS DEVIATION [QRS AXIS > 100] LOW QRS VOLTAGE IN PRECORDIAL LEADS [QRS DEFLECTION < 1.0 mV IN CHEST LEADS] RIGHT BUNDLE BRANCH BLOCK ANTEROSEPTAL MYOCARDIAL INFARCTION , OF INDETERMINATE AGE Compared to ECG 09/16/2022 15:09:07 Right-axis deviation now present Low QRS voltage now present Right bundle-branch block now present Sinus bradycardia no longer present Incomplete right bundle-branch block no longer present Myocardial infarct finding still present Electronically Signed On 09-17-2022 16:21:20 LANDCARE OFFICER by Moo Villarreal M.D. [id number]
[2022-09-16] MEDS: ipratropium-albuterol 3 mL Neb INHALATION (22:37)
[2022-09-17] VITALS (13 sets, daily range): BP systolic 96–115; BP diastolic 60–76; PULSE 79–93; RESP 17–23; TEMP 36.3–36.8; O2SAT 90–93; BMI 43.4
[2022-09-17] MEDS: ipratropium-albuterol 3 mL Neb INHALATION ×4 (02:05→20:40)
[2022-09-17] MEDS: FUROsemide 10 mg/mL SDV 4mL 40 MG IVP ×2 (05:25→17:40)
[2022-09-17 06:33] LABS: Glucose Point of Care 187 mg/dL (70-110)
[2022-09-17 07:09] LABS: Basophils % 0.1 %; Hemoglobin 16.5 g/dL (11.7-16.6); Lymphocytes # 0.3 10^3/uL (0.8-4.8); Lymphocytes % 4.2 %; Mean Corpuscular HGB Conc 31.7 g/dL (30.0-36.0); Mean Platelet Volume 10.4 fL (7.4-10.4); Monocytes # 0.1 10^3/uL (0.2-0.9); Monocytes % 1.7 %; Neutrophils % 93.7 %; Nucleated Red Blood Cells % 0 %; Platelet Count 238 10^3/cmm (130-400); Red Blood Count 5.15 10^6/uL (4.1-5.3); Red Cell Distribution Width 14.7 % (12.1-15.1); White Blood Count 7.2 10^3/uL (4.0-10.0)
[2022-09-17 07:27] LABS: Anion Gap 14.5 (5-19); Blood Urea Nitrogen 25 mg/dL (8-23); Calcium 9.7 mg/dL (8.5-10.5); Carbon Dioxide 28 mmol/L (22-29); Chloride 98 mmol/L (98-107); Glucose 196 mg/dL (65-115); Osmolality Calculated 292 mOsm/kg (285-295); Potassium 4.5 mmol/L (3.5-5.1); Sodium 136 mmol/L (136-145)
[2022-09-17] MEDS: metoprolol tartrate 25 mg Tablet PO (09:09)
[2022-09-17] MEDS: levothyroxine 175 mcg Tablet PO (09:09)
[2022-09-17] MEDS: spironolactone 25 mg Tablet PO (09:09)
[2022-09-17] MEDS: aspirin 81 mg EC Tablet PO (09:09)
[2022-09-17] MEDS: heparin 5,000 unit/mL INJ 1 mL 5000 UNIT SUBCUT ×2 (09:10→20:18)
[2022-09-17] MEDS: isosorbide dinitrate 20 mg Tablet 5 MG PO ×2 (09:10→16:58)
[2022-09-17] MEDS: insulin lispro 100 unit/1 mL SUBCUT ×4 (09:10→21:37)
[2022-09-17 10:55] LABS: Glucose Point of Care 326 mg/dL (70-110)
--- NOTE | 2022-09-17 11:20 | PC.CHAP ---
Pastoral Care Encounter/Spiritual Assessment Type of Contact [] Declined overnight caregiver visit [] Patient/Family/Request visit [] Outpatient visit [] Follow-up visit [] Physician referral [] Code/Alert [x] Routine visit [] Staff referral [] Actively dying [] Patient sleeping [] Family support [] [] Out of room [] Palliative care [] [] Receiving care in room [] Pre-surgical visit [] Trauma [] Long length of stay [] ICU visit [] Other: Relational/Emotional Strength [x] Patient feels connected with others/family/visitors/staff [] Distress [] Loneliness/isolation [] Abandonment Spirituality of Patient [x] Person of Rere [] Attends Yazidism of their Rere [x] Believes in Prayer [] Reads Bible or Restorationist materials [] There are Spiritual issues to be addressed General Maintenance Technician Interventions [x] Prayer [] Active listening [] Non-anxious presence [] Spiritual/emotional support [] Crisis/trauma care [] Spiritual counseling [] Bereavement support [] Provided bereavement packet [] Provided Bible/devotional materials [] Provided toy/stuffed animal, coloring book to patient or family member [] Provided Communion [] Anointing/[place] [] Salvation [x] Completed spiritual assessment [] Other: Impact on Illness or Injury [] Angry [] Fearful [] Anxious [] Often cries [] Exhaustion [] Unable to work [] Unable to attend sabianist [] Unable to walk/stand [] Unable to read [] Unable to drive [] Unable to eat/drink [] Unable to sleep [] Unable to be with family [] Patient intubated [] Other: Summary Time spent with patient 15min
--- NOTE | 2022-09-17 15:18 | P.PN_ITS ---
Subjective Subjective: Patient was seen this morning, he tells me that he uses 2 L of oxygen at home, currently on 5 L, he is able to ambulate to the bathroom, he tells me that yesterday he was unable to do that, he feels better, still having some intermittent wheezing and shortness of breath but overall feels better Vitals/I&O/Wt Last Vital Signs Temp 97.8 F 09/17/22 11:36 Pulse 80 09/17/22 13:47 Resp 20 H 09/17/22 13:47 BP 102/61 09/17/22 11:36 Pulse Ox 91 09/17/22 13:47 O2 Del Method 09/17/22 13:47 O2 Flow Rate 5 09/17/22 13:47 09/17/22 09/17/22 09/17/22 06:59 14:59 22:59 Intake Total 1459 120 / 120 Output Total 500 / 1700 Balance 960 / 310 120 / 120 Weight last 48 hrs Weight 150.956 kg Weight 149.232 kg Weight 149.232 kg Physical Exam Const: COMMON NORMALS: no acute distress and patient oriented x3 Resp: COMMON NORMALS: normal respiratory effort, No retractions and No use of accessory muscles AUSCULTATION: wheezes Cardio: COMMON NORMALS: regular rate, regular rhythm, S1 normal heart sound present and S2 normal heart sound present RATE: regular rate RHYTHM: regular rhythm HEART SOUNDS: S1 normal heart sound present and S2 normal heart sound present GI: COMMON NORMALS: Normal to inspection, nondistended, normoactive bowel sounds present and non-tender Extremity: NARRATIVE EXTREMITY EXAM: 1+ pitting edema Neuro: COMMON NORMALS: patient oriented x3 Psych: COMMON NORMALS: mental status grossly normal Data 09/17/22 05:50 09/17/22 05:50 A&P Assessment and plan (1) Acute on chronic respiratory failure with hypoxemia: - Secondary to diastolic CHF and COPD -Continue Lasix 40 IV twice daily -Continue Solu-Medrol 40 every 8 hours -Continue Levaquin -Monitor respiratory status -Monitor creatinine, monitor potassium, monitor urine output -Monitor blood sugars closely -Encourage up out of bed (2) Acute exacerbation of CHF (congestive heart failure): -Patient tells me that he uses Lasix 20 mg twice daily at home, that is not enough (3) COPD exacerbation: -As above (4) Acute kidney injury superimposed on CKD: - Continue to monitor creatinine, 1.2 (5) NSTEMI (non-ST elevated myocardial infarction): No active chest pain complaints, continue to monitor telemetry, Plan History of JACINTO which had improved, reports had a sleep study which said he did not need CPAP. CAD, CABG DM2, monitor sugars closely Polycythemia on intermittent phlebotomies, follows with hematology Obesity, encouraged to get out of bed Other problems Attestations Medical Necessity Statement*: Patient requires hospitalization, for acute COPD exacerbation, CHF exacerbation, respiratory failure, Other Coding Information Focused coding review requested Diagnoses Acute on chronic respiratory failure with hypoxemia J96.21 Acute exacerbation of CHF (congestive heart failure) I50.9 COPD exacerbation J44.1 Acute kidney injury superimposed on CKD N17.9; N18.9 NSTEMI (non-ST elevated myocardial infarction) I21.4
[2022-09-17] MEDS: levofloxacin-dextrose 5 % 750 MG/150 ML PREMIX 100 MG IV (16:59)
[2022-09-17 17:24] LABS: Glucose Point of Care 269 mg/dL (70-110)
[2022-09-17] MEDS: atorvastatin 40 mg Tablet 20 MG PO (20:17)
[2022-09-17 20:59] LABS: Glucose Point of Care 216 mg/dL (70-110)
[2022-09-18] VITALS (7 sets, daily range): BP systolic 103–138; BP diastolic 62–84; PULSE 66–87; RESP 16–22; TEMP 36.4; O2SAT 91–97
[2022-09-18] MEDS: ipratropium-albuterol 3 mL Neb INHALATION ×2 (01:57→07:41)
[2022-09-18] MEDS: FUROsemide 10 mg/mL SDV 4mL 40 MG IVP (04:34)
[2022-09-18 05:14] LABS: Basophils % 0.1 %; Hematocrit 50.7 % (42.0-52.0); Hemoglobin 16.1 g/dL (11.7-16.6); Lymphocytes # 0.4 10^3/uL (0.8-4.8); Lymphocytes % 3.8 %; Mean Corpuscular HGB Conc 31.8 g/dL (30.0-36.0); Mean Corpuscular Hemoglobin 32.1 pg (28.0-34.0); Mean Platelet Volume 10.2 fL (7.4-10.4); Monocytes # 0.4 10^3/uL (0.2-0.9); Neutrophils # 9.71 10^3/uL (1.8-7.7); Neutrophils % 91.7 %; Nucleated Red Blood Cells % 0 %; Platelet Count 238 10^3/cmm (130-400); Red Blood Count 5.02 10^6/uL (4.1-5.3); Red Cell Distribution Width 14.8 % (12.1-15.1); White Blood Count 10.6 10^3/uL (4.0-10.0)
[2022-09-18 05:43] LABS: Anion Gap 14.4 (5-19); Blood Urea Nitrogen 26 mg/dL (8-23); Calcium 9.3 mg/dL (8.5-10.5); Carbon Dioxide 31 mmol/L (22-29); Chloride 96 mmol/L (98-107); Glucose 204 mg/dL (65-115); Magnesium 2.1 mg/dL (1.7-2.3); NT Pro B Type Natriuretic Pept 4011 pg/mL (0-125); Osmolality Calculated 295 mOsm/kg (285-295); Potassium 4.4 mmol/L (3.5-5.1); Sodium 137 mmol/L (136-145)
[2022-09-18 06:28] LABS: Glucose Point of Care 217 mg/dL (70-110)
[2022-09-18] MEDS: insulin lispro 100 unit/1 mL SUBCUT ×2 (08:41→12:32)
[2022-09-18] MEDS: isosorbide dinitrate 20 mg Tablet 5 MG PO (08:44)
[2022-09-18] MEDS: aspirin 81 mg EC Tablet PO (08:44)
[2022-09-18] MEDS: levothyroxine 175 mcg Tablet PO (08:44)
[2022-09-18] MEDS: metoprolol tartrate 25 mg Tablet PO (08:44)
[2022-09-18] MEDS: spironolactone 25 mg Tablet PO (08:44)
[2022-09-18] MEDS: heparin 5,000 unit/mL INJ 1 mL 5000 UNIT SUBCUT (08:47)
[2022-09-18 10:45] LABS: Glucose Point of Care 324 mg/dL (70-110)
--- NOTE | 2022-09-18 10:45 | PC.NURSE ---
PT REFUSED TELE
--- NOTE | 2022-09-18 12:05 | PM.DCS ---
Discharge Providers Date of Admission: 09/16/22 16:18 Date of Discharge: September 18, 2022 Attending Provider at Admission: Osvaldo Alciea Attending Provider at Discharge: Bob Esquivel MD Primary Care Provider: MIRANDA Morley Diagnoses at Discharge Discharge Diagnosis (1) Acute on chronic respiratory failure with hypoxemia: Status: Acute (2) Acute exacerbation of CHF (congestive heart failure): Status: Acute (3) COPD exacerbation: Status: Acute (4) Acute kidney injury superimposed on CKD: Status: Acute (5) NSTEMI (non-ST elevated myocardial infarction): Status: Acute Reason for Visit Reason for Visit: SOB/ LOW O2 Hospital Course Hospital Course this is a 62-year-old gentleman with history of CAD, CABG, COPD, chronically on 3 L of oxygen, family history of JACINTO but reportedly with condition improved, not on CPAP reports underwent sleep study and told he did not need it, history of diastolic CHF, CKD, polycythemia udergoing phlebotomies, most recently says had 5 units phlebotomized, other comorbidities, presents to the hospital due to several weeks of gradually worsening dyspnea, worse with exertion now even over short distances, orthopnea, lower extremity edema, but also cough productive of greenish-yellow sputum, and has been coughing up more.? He states about 2 weeks ago he went to urgent care and was given a prescription of prednisone and an antibiotic after which she did feel better.? However, he states that subsequently he was with his nephew who had influenza, and then started feeling worse again.? In ER he is noted requiring 5 L of oxygen to maintain saturation in low 90s compared to his usual 3.? He is afebrile, without leukocytosis, unremarkable CBC, unremarkable electrolytes, however, elevated BUN of 28, creatinine elevated 1.3.? NT proBNP is higher than priors at 4262.? Baseline troponin 33, chart 135.? EKG with sinus bradycardia, first-degree block, incomplete RBBB, Q waves in 3 and aVF, Q waves in V1-V3. TSH is unremarkable.? COVID-19 PCR is negative.? Chest x-ray is unremarkable. Patient was admitted to [facility] for acute on chronic respiratory failure with hypoxia secondary to diastolic CHF and COPD received steroid therapy, Lasix therapy, antibiotic therapy and clinically monitored. Patient overall clinically improved, will be discharged on a prednisone burst, with doxycycline for antibiotic coverage. For his diuretic therapy discharged on Lasix 40 twice daily with potassium replacement therapy with recheck kidney function next week through primary care. In terms of his blood sugars, advised to monitor blood sugars closely as he is on steroid therapy discharged on half his home Levemir dose, with a NovoLog sliding scale follow-up with primary care provider in terms of blood sugars - Please take Lasix 40 mg twice daily with potassium replacement -Have your primary care provider recheck your kidney function next week and your potassium next week -Please take steroids and antibiotics as prescribed -Follow-up with pulmonary in 2 to 4 weeks -Levemir 20 units subcu daily -Please monitor your blood sugars closely -Monitor your blood sugars 3 times daily as after meals -Please record your blood sugars, and a blood sugar log -For your NovoLog -Please inject blood sugar after meals based on sliding scale provided -Do not inject insulin if you do not eat as hypoglycemia kills -This is a NovoLog sliding scale -Insulin sliding ?fingerstick? Insulin ?141-180?2 units/sq 181-220?4 units/sq ?221-260?6 units/sq ?261-300?8 units/sq ?301-350 10 units/sq ?351-400 12 units/sq > 400? 14 units/sq -If your blood sugar is greater than 500 go to the emergency room -If your blood sugar is less than 60 or at anytime you feel lightheaded or dizzy or diaphoretic or have chest palpitations check your blood sugar, and eat a hard candy or drink orange juice and go immediately to the emergency room -Remember hypoglycemia kills, so if his blood sugar is less than 60 we have to increase it by taking in a sugary meal such as a hard candy or orange juice and go to the emergency room -If you have any questions please call us where here to help - Physical Exam Const: COMMON NORMALS: no acute distress and patient oriented x3 Resp: COMMON NORMALS: normal respiratory effort, No retractions, No use of accessory muscles and clear to auscultation bilaterally AUSCULTATION: clear to auscultation bilaterally Cardio: COMMON NORMALS: regular rate, regular rhythm, S1 normal heart sound present and S2 normal heart sound present RATE: regular rate RHYTHM: regular rhythm HEART SOUNDS: S1 normal heart sound present and S2 normal heart sound present GI: COMMON NORMALS: Normal to inspection, nondistended, normoactive bowel sounds present and non-tender Extremity: COMMON NORMALS: no pedal edema Neuro: COMMON NORMALS: patient oriented x3 Psych: COMMON NORMALS: mental status grossly normal Discharge Data Studies Completed and Pending Completed Studies During Hospitalization Category Date Time Status XR chest 1V portable [id number] Stat Exams 09/16/22 13:04 Completed Pending at discharge Category Date Time Status Basic Metabolic Panel AM LABS Lab 09/19/22 04:00 Ordered Complete Blood Count w/Auto AM LABS Lab 09/19/22 04:00 Ordered Magnesium AM LABS Lab 09/19/22 04:00 Ordered Magnesium AM LABS Lab 09/20/22 04:00 Ordered NT Pro B Type Natriuretic Pept QAM Lab 09/19/22 06:00 Ordered NT Pro B Type Natriuretic Pept QAM Lab 09/20/22 06:00 Ordered Sputum Culture and Gram Stain Routine Lab 09/16/22 17:29 Ordered Radiology Impressions Chest X-Ray 09/16/22 13:04 IMPRESSION: No acute findings. Laboratory Results WBC 10.6 10^3/uL (4.0-10.0) H 09/18/22 04:53 RBC 5.02 10^6/uL (4.1-5.3) 09/18/22 04:53 Hgb 16.1 g/dL (11.7-16.6) 09/18/22 04:53 Hct 50.7 % (42.0-52.0) 09/18/22 04:53 MCV 101.0 fl (80-94) H 09/18/22 04:53 MCH 32.1 pg (28.0-34.0) 09/18/22 04:53 MCHC 31.8 g/dL (30.0-36.0) 09/18/22 04:53 RDW 14.8 % (12.1-15.1) 09/18/22 04:53 Plt Count 238 10^3/cmm (130-400) 09/18/22 04:53 MPV 10.2 fL (7.4-10.4) 09/18/22 04:53 Neut % (Auto) 91.7 % 09/18/22 04:53 Lymph % (Auto) 3.8 % 09/18/22 04:53 [place] % (Auto) 4.0 % 09/18/22 04:53 Eos % (Auto) 0.0 % 09/18/22 04:53 Baso % (Auto) 0.1 % 09/18/22 04:53 Neut # (Auto) 9.71 10^3/uL (1.8-7.7) H 09/18/22 04:53 Lymph # (Auto) 0.4 10^3/uL (0.8-4.8) L 09/18/22 04:53 [place] # (Auto) 0.4 10^3/uL (0.2-0.9) 09/18/22 04:53 Eos # (Auto) 0.0 10^3/uL (0.0-0.8) 09/18/22 04:53 Baso # (Auto) 0.0 10^3/uL (0.0-0.1) 09/18/22 04:53 Nucleated RBC % (auto) 0 % 09/18/22 04:53 Nucleated RBCs # 0.0 /100WBC 09/18/22 04:53 Sodium 137 mmol/L (136-145) 09/18/22 04:53 Potassium 4.4 mmol/L (3.5-5.1) 09/18/22 04:53 Chloride 96 mmol/L (98-107) L 09/18/22 04:53 Carbon Dioxide 31 mmol/L (22-29) H 09/18/22 04:53 Anion Gap 14.4 (5-19) 09/18/22 04:53 BUN 26 mg/dL (8-23) H 09/18/22 04:53 Creatinine 1.2 mg/dL (0.7-1.2) 09/18/22 04:53 GFR Calculation 61.0 mL/min (90-130) L 09/18/22 04:53 Glucose 204 mg/dL (65-115) H 09/18/22 04:53 POC Glucose 324 mg/dL (70-110) H 09/18/22 10:39 Calculated Osmolality 295 mOsm/kg (285-295) 09/18/22 04:53 Calcium 9.3 mg/dL (8.5-10.5) 09/18/22 04:53 Magnesium 2.1 mg/dL (1.7-2.3) 09/18/22 04:53 Total Bilirubin 0.3 mg/dL (0.15-1.2) 09/16/22 13:20 AST 18 U/L (0-40) 09/16/22 13:20 ALT 20 U/L (0-41) 09/16/22 13:20 Alkaline Phosphatase 55 U/L (40-130) 09/16/22 13:20 Troponin T Baseline 33 ng/L (0-15) H 09/16/22 13:20 Troponin T 120 Minute 35.20 ng/L (0-15) H 09/16/22 14:57 Delta Troponin T 2.20 ABS# (0-10) 09/16/22 14:57 Troponin T Hi Sens 6Hr 35.09 ng/L (0-15) H 09/16/22 19:17 Troponin T Hi Sens 6Hr Delta 2.09 ng/L (0-12) 09/16/22 19:17 C-Reactive Protein 3.0 mg/L (0.0-4.9) 09/16/22 13:20 NT-Pro-B Natriuret Pep 4011 pg/mL (0-125) H 09/18/22 04:53 Total Protein 5.8 g/dL (6.6-8.7) L 09/16/22 13:20 Albumin 3.8 g/dL (3.5-5.2) 09/16/22 13:20 Globulin 2.0 g/dL (1.3-4.6) 09/16/22 13:20 Procalcitonin 0.02 ng/mL (0-0.5) 09/16/22 13:20 TSH 0.98 uIU/mL (0.27-4.20) 09/16/22 13:20 Coronavirus 229E (PCR) Not detected (NOT DETECT) 09/16/22 13:20 SARS-CoV-2 (PCR) Not detected (NOT DETECT) 09/16/22 13:20 Vitals Last Vital Signs Temp 97.6 F 09/18/22 08:00 Pulse 87 09/18/22 08:00 Resp 20 H 09/18/22 08:00 BP 112/68 09/18/22 08:00 Pulse Ox 97 09/18/22 08:00 O2 Del Method 09/18/22 08:00 O2 Flow Rate 5 09/18/22 08:00 Discharge Plan Discharge Patient Disposition: Home Condition: Stable Prescriptions: New doxycycline hyclate 100 mg tablet 100 mg PO BID 5 Days Qty: 10 0RF prednisone 20 mg tablet 20 mg PO BID 5 Days Qty: 10 0RF insulin aspart U-100 [Novolog FlexPen U-100 Insulin] 100 unit/mL (3 mL) insulin pen See Rx Instructions .ROUTE .COMPLEX Qty: 15 0RF Rx Instructions: Inject, subcut, 3 times daily, after meals, based on sliding scale provided potassium chloride [Klor-Con 10] 10 mEq tablet extended release 10 meq PO BID 30 Days Qty: 60 0RF Continued cholecalciferol (vitamin D3) 125 mcg (5,000 unit) capsule 10,000 unit PO DAILY aspirin [Adult Low Dose Aspirin] 81 mg tablet,delayed release (DR/EC) 81 mg PO DAILY nitroglycerin 0.4 mg tablet, sublingual 0.4 mg sublingual Q5M PRN (Reason: chest pain) Qty: 25 3RF (DME) blood sugar diagnostic Strip See Rx Instructions .ROUTE .MEDSUPPLY Qty: 50 5RF Rx Instructions: one time day triamcinolone acetonide 0.1 % ointment 1 applic topical BID Qty: 80 0RF Rx Instructions: Apply to affected area no more than 2 weeks per month. Not for face magnesium oxide 500 mg capsule 500 mg PO DAILY mexiletine 200 mg capsule 200 mg PO Q8H Qty: 90 0RF docusate sodium [Colace] 100 mg capsule 100 mg PO DAILY Qty: 90 0RF atorvastatin 20 mg tablet 20 mg PO BEDTIME Qty: 90 0RF (DME) OneTouch Ultra Test Strip See Rx Instructions .Route Qty: 100 5RF Rx Instructions: 3 times day as needed albuterol sulfate 2.5 mg /3 mL (0.083 %) solution for nebulization 2.5 mg inhalation .2 times day PRN (Reason: shortness of breath or wheezing) Qty: 180 2RF fenofibrate nanocrystallized [Tricor] 48 mg tablet 48 mg PO DAILY Qty: 90 0RF levothyroxine 175 mcg tablet 175 mcg PO DAILY Qty: 90 0RF lisinopril 2.5 mg tablet 2.5 mg PO DAILY Qty: 90 0RF (DME) pen needle, diabetic 33 gauge x 5/32 needle See Rx Instructions .ROUTE .MEDSUPPLY Qty: 100 5RF Rx Instructions: 1 times day semaglutide 1 mg/dose (2 mg/1.5 mL) pen injector 1 mg SUBCUT .weekly Qty: 3 2RF Rx Instructions: on Wednesdays spironolactone 25 mg tablet 25 mg PO DAILY Qty: 90 0RF omega-3 fatty acids 500 mg capsule 500 mg PO DAILY isosorbide dinitrate 10 mg tablet 5 mg PO BID Qty: 180 1RF Rx Instructions: allow nitrate-free interval of 12-14 hrs per 24-hr period metoprolol tartrate 25 mg tablet 25 mg PO DAILY Changed furosemide 20 mg tablet 40 mg PO BID 30 Days Qty: 120 0RF Levemir FlexTouch U-100 Insuln 100 unit/mL (3 mL) insulin pen 20 unit SUBCUT DAILY Qty: 15 0RF Discharge Orders: Discharge Order (Routine); Ordered 09/18/22 Ordered By: Bob Esquivel Referrals: Donavon Martinez MD [Physician] - 2 weeks Catarina Olsen FNP-C [Primary Care Provider] - 4-7 days Discharge Diet: Cardiac Discharge Activity: Resume usual activity Patient Instructions: Opioid Safety Activity Restrictions/Additional Instructions: - Please take Lasix 40 mg twice daily with potassium replacement -Have your primary care provider recheck your kidney function next week and your potassium next week -Please take steroids and antibiotics as prescribed -Follow-up with pulmonary in 2 to 4 weeks -Levemir 20 units subcu daily -Please monitor your blood sugars closely -Monitor your blood sugars 3 times daily as after meals -Please record your blood sugars, and a blood sugar log -For your NovoLog -Please inject blood sugar after meals based on sliding scale provided -Do not inject insulin if you do not eat as hypoglycemia kills -This is a NovoLog sliding scale -Insulin sliding ?fingerstick? Insulin ?141-180?2 units/sq 181-220?4 units/sq ?221-260?6 units/sq ?261-300?8 units/sq ?301-350 10 units/sq ?351-400 12 units/sq > 400? 14 units/sq -If your blood sugar is greater than 500 go to the emergency room -If your blood sugar is less than 60 or at anytime you feel lightheaded or dizzy or diaphoretic or have chest palpitations check your blood sugar, and eat a hard candy or drink orange juice and go immediately to the emergency room -Remember hypoglycemia kills, so if his blood sugar is less than 60 we have to increase it by taking in a sugary meal such as a hard candy or orange juice and go to the emergency room -If you have any questions please call us where here to help - Discharge Attestations Time Spent in Discharge Care*: greater than 30 min Quality Metrics Clinical Quality Measures [ No reported AMI, CVA or VTE this stay] Coding Level of Care Code 38797 Diagnoses Acute on chronic respiratory failure with hypoxemia J96.21 Acute exacerbation of CHF (congestive heart failure) I50.9 COPD exacerbation J44.1 Acute kidney injury superimposed on CKD N17.9; N18.9 NSTEMI (non-ST elevated myocardial infarction) I21.4
== END 2022-09-18 14:05 | disposition home or self-care (01) | DRG 291 ==
LOC: ER 16:17 → MEDSURG 17:14
PROVIDERS: Admitting Provider Internal Medicine; Emergency Provider Emergency Medicine; PCP Nurse Practitioner; Visit Provider Family Medicine
DX: I50.33 Acute on chronic diastolic (congestive) heart failure (principal); J96.21 Acute and chronic respiratory failure with hypoxia; J44.1 Chronic obstructive pulmonary disease with (acute) exacerbation; N17.9 Acute kidney failure, unspecified; Z68.41 Body mass index [BMI] 40.0-44.9, adult; J96.11 Chronic respiratory failure with hypoxia; I25.10 Atherosclerotic heart disease of native coronary artery without angina pectoris; Z95.1 Presence of aortocoronary bypass graft; Z98.61 Coronary angioplasty status; Z99.81 Dependence on supplemental oxygen; D75.1 Secondary polycythemia; Z79.82 Long term (current) use of aspirin; Z79.51 Long term (current) use of inhaled steroids; Z88.0 Allergy status to penicillin; Z88.7 Allergy status to serum and vaccine; E03.9 Hypothyroidism, unspecified; E78.2 Mixed hyperlipidemia; G47.33 Obstructive sleep apnea (adult) (pediatric); K59.01 Slow transit constipation; Z87.891 Personal history of nicotine dependence; E66.9 Obesity, unspecified; I45.10 Unspecified right bundle-branch block; I44.0 Atrioventricular block, first degree
CPT/HCPCS: 36415; 36416; 71045; 80048; 80053; 82962; 83735; 83880; 84145; 84443; 84484; 85025; 86140; 87635; 87641; 93005; 94640; 94664; 96372; 99285; J1644; J1815; J1940; J1956; J2920

== ENCOUNTER 2022-09-22 12:30 | Oncology outpatient (recurring) (ONCR) | payer MEDICARE, SELFPAY ==
[2022-09-08 11:40] VITALS: BP 124/74; PULSE 74; RESP 18; TEMP 36.6; O2SAT 99
[2022-09-08 11:59] LABS: Basophils % 0.3 %; Eosinophils # 0.2 10^3/uL (0.0-0.8); Eosinophils % 2.9 %; Hematocrit 53.2 % (42.0-52.0); Hemoglobin 16.6 g/dL (11.7-16.6); Lymphocytes # 1.3 10^3/uL (0.8-4.8); Lymphocytes % 22.3 %; Mean Corpuscular HGB Conc 31.2 g/dL (30.0-36.0); Mean Corpuscular Hemoglobin 31.5 pg (28.0-34.0); Mean Corpuscular Volume 100.9 fl (80-94); Mean Platelet Volume 10.2 fL (7.4-10.4); Monocytes # 0.6 10^3/uL (0.2-0.9); Monocytes % 10.8 %; Neutrophils # 3.76 10^3/uL (1.8-7.7); Neutrophils % 63.4 %; Nucleated Red Blood Cells % 0 %; Platelet Count 211 10^3/cmm (130-400); Red Blood Count 5.27 10^6/uL (4.1-5.3); Red Cell Distribution Width 14.6 % (12.1-15.1); White Blood Count 5.9 10^3/uL (4.0-10.0)
[2022-09-08 15:13] VITALS: BP 124/78; PULSE 74; RESP 19; TEMP 36.6; O2SAT 99
--- NOTE | 2022-09-08 15:19 | PC.NURSE ---
Dr Null reviewed the cbc with theraputic phlebotomy. 450ml with drawn.mm
[2022-09-22 13:06] LABS: Basophils % 0.2 %; Eosinophils % 0.1 %; Hematocrit 54.6 % (42.0-52.0); Hemoglobin 17.8 g/dL (11.7-16.6); Lymphocytes # 0.7 10^3/uL (0.8-4.8); Lymphocytes % 6.1 %; Mean Corpuscular HGB Conc 32.6 g/dL (30.0-36.0); Mean Corpuscular Hemoglobin 31.2 pg (28.0-34.0); Mean Corpuscular Volume 95.6 fl (80-94); Mean Platelet Volume 10.6 fL (7.4-10.4); Monocytes # 0.6 10^3/uL (0.2-0.9); Monocytes % 4.9 %; Neutrophils # 10.44 10^3/uL (1.8-7.7); Nucleated Red Blood Cells % 0 %; Platelet Count 298 10^3/cmm (130-400); Red Blood Count 5.71 10^6/uL (4.1-5.3); Red Cell Distribution Width 14.5 % (12.1-15.1); White Blood Count 11.9 10^3/uL (4.0-10.0)
== END 2022-10-05 23:59 | disposition home or self-care (01) ==
PROVIDERS: PCP Nurse Practitioner; Visit Provider Internal Medicine Medical Oncology
DX: D75.1 Secondary polycythemia (principal)
CPT/HCPCS: 36415; 85025; 96367; 96375; 96413; 99195

== ENCOUNTER → 2022-09-27 15:08 | Outpatient (BNVA) | payer MEDICARE, SELFPAY | PROVIDERS: PCP Nurse Practitioner; Visit Provider Nurse Practitioner | DX: E11.65 Type 2 diabetes mellitus with hyperglycemia (principal); Z79.4 Long term (current) use of insulin; E78.2 Mixed hyperlipidemia; E03.9 Hypothyroidism, unspecified; I50.9 Heart failure, unspecified; M54.16 Radiculopathy, lumbar region | CPT/HCPCS: 80048; 83036; 85025 ==

== ENCOUNTER → 2022-09-29 11:00 | Outpatient (BNVA) | payer MEDICARE, SELFPAY | PROVIDERS: PCP Nurse Practitioner; Visit Provider Nurse Practitioner Family | DX: I50.32 Chronic diastolic (congestive) heart failure (principal); I95.9 Hypotension, unspecified | CPT/HCPCS: 99214 ==

== ENCOUNTER → 2022-10-26 13:56 | Outpatient (BNVA) | payer MEDICARE, SELFPAY | PROVIDERS: PCP Nurse Practitioner; Visit Provider Internal Medicine Pulmonary Disease | DX: J44.9 Chronic obstructive pulmonary disease, unspecified (principal); G47.33 Obstructive sleep apnea (adult) (pediatric); J96.12 Chronic respiratory failure with hypercapnia; Z99.81 Dependence on supplemental oxygen; Z87.891 Personal history of nicotine dependence | CPT/HCPCS: 99204 ==

== ENCOUNTER 2022-11-01 11:50 | Oncology outpatient (recurring) (ONCR) | payer MEDICARE, SELFPAY ==
[2022-10-06 12:35] VITALS: BP 127/54; PULSE 74; RESP 18; TEMP 36.8; O2SAT 99
[2022-10-06 12:40] LABS: Basophils % 0.6 %; Eosinophils # 0.1 10^3/uL (0.0-0.8); Eosinophils % 1.5 %; Hemoglobin 18.1 g/dL (11.7-16.6); Lymphocytes # 1.3 10^3/uL (0.8-4.8); Lymphocytes % 18.9 %; Mean Corpuscular HGB Conc 31.8 g/dL (30.0-36.0); Mean Corpuscular Volume 97.8 fl (80-94); Mean Platelet Volume 10.5 fL (7.4-10.4); Monocytes # 0.7 10^3/uL (0.2-0.9); Monocytes % 9.7 %; Neutrophils # 4.76 10^3/uL (1.8-7.7); Nucleated Red Blood Cells % 0 %; Platelet Count 207 10^3/cmm (130-400); Red Blood Count 5.83 10^6/uL (4.1-5.3); Red Cell Distribution Width 13.8 % (12.1-15.1); White Blood Count 6.9 10^3/uL (4.0-10.0)
[2022-10-06 12:59] LABS: Albumin Level 4.1 g/dL (3.5-5.2); Alkaline Phosphatase 71 U/L (40-130); Blood Urea Nitrogen 26 mg/dL (8-23); Calcium 9.4 mg/dL (8.5-10.5); Carbon Dioxide 32 mmol/L (22-29); Chloride 95 mmol/L (98-107); Globulin 3.1 g/dL (1.3-4.6); Glomerular Filtration Rate 55.6 mL/min (90-130); Glucose 150 mg/dL (65-115); Osmolality Calculated 292 mOsm/kg (285-295); Sodium 137 mmol/L (136-145); Total Bilirubin 0.6 mg/dL (0.15-1.2); Total Protein 7.2 g/dL (6.6-8.7)
[2022-10-06 13:00] LABS: Alanine Aminotransferase 21 U/L (0-41); Anion Gap 14.6 (5-19); Aspartate Amino Transferase 25 U/L (0-40); Potassium 4.6 mmol/L (3.5-5.1)
[2022-10-20 12:35] VITALS: BP 109/64; PULSE 71; RESP 18; TEMP 36.6; O2SAT 97
[2022-10-20 12:40] LABS: Basophils # 0.1 10^3/uL (0.0-0.1); Basophils % 0.6 %; Eosinophils # 0.2 10^3/uL (0.0-0.8); Eosinophils % 1.9 %; Hematocrit 52.1 % (42.0-52.0); Hemoglobin 16.9 g/dL (11.7-16.6); Lymphocytes # 1.8 10^3/uL (0.8-4.8); Lymphocytes % 23.5 %; Mean Corpuscular HGB Conc 32.4 g/dL (30.0-36.0); Mean Corpuscular Hemoglobin 31.8 pg (28.0-34.0); Mean Corpuscular Volume 97.9 fl (80-94); Monocytes # 0.8 10^3/uL (0.2-0.9); Monocytes % 10.4 %; Neutrophils # 4.88 10^3/uL (1.8-7.7); Nucleated Red Blood Cells % 0 %; Platelet Count 256 10^3/cmm (130-400); Red Blood Count 5.32 10^6/uL (4.1-5.3); Red Cell Distribution Width 14.1 % (12.1-15.1); White Blood Count 7.8 10^3/uL (4.0-10.0)
--- NOTE | 2022-10-20 15:53 | PC.NURSE ---
Patient tolerated the theraputic phlebotomy with no issues or concerns. He left the suite with the plan for the next lab draw in 2 weeks.mm
[2022-11-01 12:21] LABS: Basophils % 0.4 %; Eosinophils # 0.1 10^3/uL (0.0-0.8); Eosinophils % 1.3 %; Hematocrit 47.8 % (42.0-52.0); Lymphocytes # 1.6 10^3/uL (0.8-4.8); Lymphocytes % 20.6 %; Mean Corpuscular HGB Conc 31.4 g/dL (30.0-36.0); Mean Corpuscular Hemoglobin 31.1 pg (28.0-34.0); Mean Corpuscular Volume 99.2 fl (80-94); Mean Platelet Volume 10.1 fL (7.4-10.4); Monocytes # 0.7 10^3/uL (0.2-0.9); Monocytes % 8.7 %; Neutrophils # 5.46 10^3/uL (1.8-7.7); Neutrophils % 68.6 %; Nucleated Red Blood Cells % 0.3 %; Platelet Count 259 10^3/cmm (130-400); Red Blood Count 4.82 10^6/uL (4.1-5.3); Red Cell Distribution Width 15.3 % (12.1-15.1)
== END 2022-11-05 23:59 | disposition home or self-care (01) ==
PROVIDERS: Nurse Practitioner; PCP Nurse Practitioner; Visit Provider Internal Medicine Medical Oncology
DX: D75.1 Secondary polycythemia (principal)
CPT/HCPCS: 36415; 80053; 85025; 99195

== ENCOUNTER → 2022-11-10 15:42 | Outpatient (BNVA) | payer MEDICARE, SELFPAY | PROVIDERS: PCP Nurse Practitioner; Visit Provider Internal Medicine | DX: I49.3 Ventricular premature depolarization (principal); I50.32 Chronic diastolic (congestive) heart failure; I25.10 Atherosclerotic heart disease of native coronary artery without angina pectoris; Z87.891 Personal history of nicotine dependence; Z79.82 Long term (current) use of aspirin | CPT/HCPCS: 99214 ==

== ENCOUNTER 2022-12-01 13:00 | Oncology outpatient (recurring) (ONCR) | payer MEDICARE, SELFPAY ==
[2022-11-15 08:50] VITALS: BP 113/81; PULSE 89; RESP 18; TEMP 36.6; O2SAT 92
[2022-11-15 09:05] LABS: Basophils % 0.5 %; Eosinophils # 0.3 10^3/uL (0.0-0.8); Hematocrit 50.4 % (42.0-52.0); Hemoglobin 15.7 g/dL (11.7-16.6); Lymphocytes # 1.3 10^3/uL (0.8-4.8); Lymphocytes % 15.2 %; Mean Corpuscular HGB Conc 31.2 g/dL (30.0-36.0); Mean Corpuscular Hemoglobin 31.2 pg (28.0-34.0); Mean Platelet Volume 9.4 fL (7.4-10.4); Monocytes # 0.8 10^3/uL (0.2-0.9); Monocytes % 9.9 %; Nucleated Red Blood Cells % 0 %; Platelet Count 294 10^3/cmm (130-400); Red Blood Count 5.04 10^6/uL (4.1-5.3); Red Cell Distribution Width 15.3 % (12.1-15.1); White Blood Count 8.3 10^3/uL (4.0-10.0)
[2022-12-01 12:55] VITALS: BP 124/78; PULSE 81; RESP 20; TEMP 36.4; O2SAT 98
[2022-12-01 13:07] LABS: Basophils # 0.1 10^3/uL (0.0-0.1); Basophils % 0.6 %; Eosinophils # 0.1 10^3/uL (0.0-0.8); Eosinophils % 1.8 %; Hematocrit 47.7 % (42.0-52.0); Hemoglobin 14.8 g/dL (11.7-16.6); Lymphocytes # 1.4 10^3/uL (0.8-4.8); Lymphocytes % 17.5 %; Mean Corpuscular Hemoglobin 30.1 pg (28.0-34.0); Mean Platelet Volume 9.4 fL (7.4-10.4); Monocytes # 0.9 10^3/uL (0.2-0.9); Monocytes % 10.9 %; Neutrophils # 5.38 10^3/uL (1.8-7.7); Neutrophils % 69.1 %; Nucleated Red Blood Cells % 0 %; Platelet Count 269 10^3/cmm (130-400); Red Blood Count 4.92 10^6/uL (4.1-5.3); Red Cell Distribution Width 14.8 % (12.1-15.1); White Blood Count 7.8 10^3/uL (4.0-10.0)
== END 2022-12-05 23:59 | disposition home or self-care (01) ==
PROVIDERS: PCP Nurse Practitioner; Visit Provider Internal Medicine Medical Oncology
DX: D75.1 Secondary polycythemia (principal)
CPT/HCPCS: 36415; 85025

== ENCOUNTER 2022-12-02 08:01 | Outpatient (CLI) | payer MEDICARE, SELFPAY ==
[2022-12-02 08:30] VITALS: PULSE 84; RESP 18; O2SAT 94
[2022-12-02] MEDS: albuterol 2.5 mg/3 mL Neb INHALATION (08:30)
[2022-12-02 08:35] VITALS: PULSE 88
[2022-12-02 09:00] VITALS: BP 104/60
== END 2022-12-02 08:02 | disposition home or self-care (01) ==
PROVIDERS: PCP Nurse Practitioner; Visit Provider Internal Medicine Pulmonary Disease
DX: J44.9 Chronic obstructive pulmonary disease, unspecified (principal); R09.02 Hypoxemia; G47.33 Obstructive sleep apnea (adult) (pediatric)
CPT/HCPCS: 94060; 94618; 94726; 94729; J7613

== ENCOUNTER 2022-12-08 18:13 | Emergency (ER) | payer MEDICARE, SELFPAY ==
[2022-12-08] VITALS (9 sets, daily range): BP systolic 128–150; BP diastolic 84–102; PULSE 69–86; RESP 15–20; TEMP 36.4; O2SAT 81–93
--- NOTE | 2022-12-08 18:33 | XRR_ITS ---
PROCEDURE INFORMATION: Exam: XR Chest Exam date and time: 12/08/2022 6:49 PM Age: 62 years old Clinical indication: Shortness of breath; Prior surgery; Surgery date: 6+ months; Surgery type: Double bypass; Additional info: SOB TECHNIQUE: Imaging protocol: Radiologic exam of the chest. Views: 1 view. COMPARISON: CR XR chest 1V portable [id number] 09/16/2022 1:31 PM FINDINGS: Lungs: There are bilateral lower lobe infiltrates present. Pleural spaces: Unremarkable. No pleural effusion. No pneumothorax. Heart/Mediastinum: Stable heart size. Bones/joints: Stable sternotomy changes. XR/XR chest 1V portable [id number] IMPRESSION: There are bilateral lower lobe infiltrates present. Correlate for possible pneumonia.
--- NOTE | 2022-12-08 18:33 | ECG_ITS ---
[facility] Test Date: 2022-12-08 Pat Name: Henry Perez Department: Room: Gender: Male Production Floater: : 1960 Requested By: Sukhdeep Torres Order Number: [id number] Nhi MD: Irlanda Buchanan M.D. Measurements Intervals [place] Rate: 87 P: 58 IN: 282 QRS: 221 QRSD: 103 T: 3 QT: 371 QTc: 448 Interpretive Statements SINUS RHYTHM WITH FIRST DEGREE AV BLOCK POSSIBLE LEFT ATRIAL ENLARGEMENT [-0.1mV P-WAVE IN V1/V2] INCOMPLETE RIGHT BUNDLE BRANCH BLOCK [90+ ms QRS DURATION, TERMINAL R IN V1/V2, 40+ ms S IN I/aVL/V4/V5/V6] POSSIBLE ANTERIOR MYOCARDIAL INFARCTION , OF INDETERMINATE AGE [30 ms Q WAVE IN V3/V4, OR R < 0.2 mV IN V4] INFERIOR MYOCARDIAL INFARCTION , OF INDETERMINATE AGE [40+ ms Q WAVE AND/OR ST/T ABNORMALITY IN II/aVF] Compared to ECG 09/16/2022 22:34:44 Incomplete right bundle-branch block now present Right-axis deviation no longer present Right bundle-branch block no longer present Myocardial infarct finding still present Electronically Signed On 12-09-2022 21:19:06 CDT by Irlanda Buchanan M.D. [email or web address].[employer]/store/[id number]
[2022-12-08 19:33] LABS: Basophils % 0.4 %; Eosinophils # 0.1 10^3/uL (0.0-0.8); Eosinophils % 1.3 %; Hematocrit 45.5 % (42.0-52.0); Hemoglobin 14.1 g/dL (11.7-16.6); Lymphocytes # 1.1 10^3/uL (0.8-4.8); Lymphocytes % 15.4 %; Mean Corpuscular Hemoglobin 30.3 pg (28.0-34.0); Mean Corpuscular Volume 97.6 fl (80-94); Mean Platelet Volume 9.3 fL (7.4-10.4); Monocytes # 0.8 10^3/uL (0.2-0.9); Neutrophils % 71.6 %; Nucleated Red Blood Cells % 0 %; Platelet Count 268 10^3/cmm (130-400); Red Blood Count 4.66 10^6/uL (4.1-5.3); Red Cell Distribution Width 15.3 % (12.1-15.1); White Blood Count 7.1 10^3/uL (4.0-10.0)
[2022-12-08 19:58] LABS: Troponin(5th) Baseline 101 ng/L (0-15)
[2022-12-08 20:06] LABS: Alanine Aminotransferase 20 U/L (0-41); Albumin Level 3.6 g/dL (3.5-5.2); Alkaline Phosphatase 55 U/L (40-130); Anion Gap 15.3 (5-19); Aspartate Amino Transferase 18 U/L (0-40); Blood Urea Nitrogen 33 mg/dL (8-23); Calcium 9.4 mg/dL (8.5-10.5); Carbon Dioxide 27 mmol/L (22-29); Chloride 100 mmol/L (98-107); Globulin 2.8 g/dL (1.3-4.6); Glomerular Filtration Rate 43.7 mL/min (90-130); Glucose 106 mg/dL (65-115); NT Pro B Type Natriuretic Pept 4195 pg/mL (0-125); Osmolality Calculated 294 mOsm/kg (285-295); Potassium 4.3 mmol/L (3.5-5.1); Sodium 138 mmol/L (136-145); Total Bilirubin 0.4 mg/dL (0.15-1.2); Total Protein 6.4 g/dL (6.6-8.7)
--- NOTE | 2022-12-08 20:33 | ECG_ITS ---
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 Measurements Intervals [place] Rate: 89 P: 51 AR: 236 QRS: 204 QRSD: 106 T: -1 QT: 341 QTc: 416 Interpretive Statements SINUS RHYTHM WITH FIRST DEGREE AV BLOCK POSSIBLE LEFT ATRIAL ENLARGEMENT [-0.1mV P-WAVE IN V1/V2] INCOMPLETE RIGHT BUNDLE BRANCH BLOCK [90+ ms QRS DURATION, TERMINAL R IN V1/V2, 40+ ms S IN I/aVL/V4/V5/V6] INFERIOR MYOCARDIAL INFARCTION , OF INDETERMINATE AGE [40+ ms Q WAVE AND/OR ST/T ABNORMALITY IN II/aVF] ANTEROSEPTAL MYOCARDIAL INFARCTION , OF INDETERMINATE AGE [40+ ms Q WAVE IN V1-V4] Compared to ECG 09/16/2022 22:34:44 Incomplete right bundle-branch block now present Right-axis deviation no longer present Right bundle-branch block no longer present Myocardial infarct finding still present Electronically Signed On 12-09-2022 21:25:52 CDT by Irlanda Buchanan M.D. [id number]
--- NOTE | 2022-12-08 20:56 | W.ED.SYNCOPE ---
HPI - Syncope General: Chief Complaint: Syncope Stated Complaint: fall dizzy right leg swollen Time Seen by Provider: 12/08/22 20:42 History of Present Illness: Patient presents here with complaints of fall with forearm injury, shortness of breath for the last 2 to 3 weeks. Patient normally wears oxygen at 2 to 3 L/min but has increased it up to 6 L/min and still short of breath. Patient states his O2 sat was 81% on 6 L/min when he was home. MD complaint: other (Fall) Onset (ago): unknown (Fall today shortness of breath 2 to 3 weeks) Injuries sustained associated with event: LUE (Left forearm skin tears) Associated symptoms: Reports short of breath; Deny abdominal pain, chest pain, fever(s) or nausea Review of Systems General: Reports: 10 or more systems reviewed and unremarkable except in HPI and below Const: Denies: fever(s) or chills Eyes: Denies: change in vision or photophobia ENMT: Denies: throat pain or odynophagia Card: Reports: edema; Denies: chest pain, palpitations or irregular heart rhythm Resp: Reports: dyspnea GI: Denies: abdominal pain, nausea or vomiting PFSH ED PFSH: Medical History Adult hypothyroidism CAD (coronary artery disease) CHF (congestive heart failure) CKD (chronic kidney disease), stage II Diabetes mellitus with hyperglycemia, with long-term current use of insulin Frequent PVCs Hypoxemia Mixed hyperlipidemia Obstructive sleep apnea Secondary polycythemia Slow transit constipation Vitamin D insufficiency Surgical History H/O angioplasty 2020 - Dr. Velez [facility] History of coronary artery bypass graft 2 grafts in 2006 Family History Mother Chronic kidney disease (CKD) at age 85 CAD (coronary artery disease) Pace maker Hypertension Father Cancer Prostate Sister Hypertension Osteoporosis Other Diabetes Hyperlipidemia Denies family history of Clotting disorder Dementia Psychiatric illness Suicide Anesthesia complication Bleeding disorder Lung disease Stroke Social History Smoking and tobacco status: former smoker Second hand smoke exposure: No Smoking risk assessment/counseling performed?: No Alcohol intake: never Desire information about alcohol rehabilitation?: No Counseling given: No Substance/Drug Use: never Desire information about substance/drug rehabilitation?: No Counseling given: No Caregiver/support person: No Lives independently: Yes Household members: significant other Housing: House Marital status: Single service: No Current occupational status: unemployed Do you think of yourself as: Straight/Heterosexual Current gender identity: Male Physical Exam Const: COMMON NORMALS: no acute distress, average body habitus, patient oriented x3, no limitations, healthy appearing, alert and well nourished HENMT: COMMON NORMALS: normocephalic, atraumatic, hearing grossly normal bilaterally, external ears normal, Normal external nose present and moist oral mucous membranes HEAD & SCALP: normocephalic and atraumatic NOSE: Normal external nose present EXTERNAL EAR: Yes external ears normal Eye: COMMON NORMALS: Equal, round and reactive pupils present, EOMs intact bilaterally, conjunctivae normal and no scleral icterus CONJUNCTIVA: Yes conjunctivae normal PUPIL: Yes Equal, round and reactive pupils present Neck/C-Spine: COMMON NORMALS: full ROM, no lymphadenopathy, supple, no meningeal signs, no JVD and Thyroid normal THYROID: Thyroid normal Lymph: LYMPHATIC: no lymphadenopathy noted Chest: COMMONS NORMALS: normal inspection of the chest and normal palpation of entire chest wall Resp: COMMON NORMALS: normal respiratory effort, No retractions, No use of accessory muscles and clear to auscultation bilaterally AUSCULTATION: clear to auscultation bilaterally Cardio: COMMON NORMALS: no JVD, regular rate, regular rhythm, S1 normal heart sound present and S2 normal heart sound present RATE: regular rate RHYTHM: regular rhythm HEART SOUNDS: S1 normal heart sound present and S2 normal heart sound present GI: COMMON NORMALS: Normal to inspection, nondistended, normoactive bowel sounds present, Soft to palpation, non-tender, No hepatosplenomegaly present and no masses PALPATION: Yes Soft to palpation and Yes No hepatosplenomegaly present Extremity: NARRATIVE EXTREMITY EXAM: 2+ pretibial edema pitting bilaterally Neuro: COMMON NORMALS: patient oriented x3 SENSORIUM/ORIENTATION: Yes alert MENINGEAL SIGNS: Yes no meningeal signs Course Vital Signs: Vital signs: Vital Signs Temperature 97.5 F L 12/08/22 18:15 Pulse Rate 85 12/08/22 21:00 Respiratory Rate 20 H 12/08/22 21:00 Blood Pressure 137/100 12/08/22 20:55 Pulse Oximetry 92 12/08/22 21:00 Oxygen Delivery Me thod Nasal Cannula 12/08/22 21:00 Oxygen Flow Rate 6 12/08/22 21:00 MDM - Syncope Medical Decision Making Presents to the ER with complaints of worsening shortness of breath to the point of passing out falling and skinning his left forearm. Patient states he usually wears 2 to 3 L/min but now is on 6 L/min. This been going on for the last couple weeks. Physical exam was performed and laboratory work-up was obtained. This showed chest x-ray that showed bilateral lower lobe infiltrates present correlate for possible pneumonia. White count was normal at 7.1. Patient BUN/creatinine was slightly elevated at 33 and 1.6. Patient BNP was elevated at 4195. Lactic acid was normal at 1.4. Patient was given a DuoNeb treatment Levaquin 500 mg IV Decadron 10 mg IV and stated he was feeling much better and was diuresed diuresing very well. Patient was given the option of coming inpatient for observation for IV antibiotics diuretics and steroids or going home. Patient chose the option to go home and tried on an outpatient basis. Patient will be placed on Levaquin 500 mg 1 pill once a day, prednisone 40 mg a day for 5 days, dose of Zaroxolyn to take daily for the next 3 days on top of his Lasix. Patient understands the risk that he may worsen and have to come back to the hospital for admission and patient accepts this. Patient is to follow-up with his family practice doctor within next 1 week. Differential Diagnosis Unlikely syncope due to orthostatic hypotension, vasovagal syncope, complete atrioventricular block, subarachnoid hemorrhage, pulmonary embolism or dehydration Medical Records I reviewed the patient's medical records. Lab Data I reviewed the patient's lab results. 12/08/22 19:20 12/08/22 19:20 Radiology Impressions Chest X-Ray 12/08/22 18:33 IMPRESSION: There are bilateral lower lobe infiltrates present. Correlate for possible pneumonia. Laboratory Results WBC 7.1 10^3/uL (4.0-10.0) 12/08/22 19:20 RBC 4.66 10^6/uL (4.1-5.3) 12/08/22 19:20 Hgb 14.1 g/dL (11.7-16.6) 12/08/22 19:20 Hct 45.5 % (42.0-52.0) 12/08/22 19:20 MCV 97.6 fl (80-94) H 12/08/22 19:20 MCH 30.3 pg (28.0-34.0) 12/08/22 19:20 MCHC 31.0 g/dL (30.0-36.0) 12/08/22 19:20 RDW 15.3 % (12.1-15.1) H 12/08/22 19:20 Plt Count 268 10^3/cmm (130-400) 12/08/22 19:20 MPV 9.3 fL (7.4-10.4) 12/08/22 19:20 Neut % (Auto) 71.6 % 12/08/22 19:20 Lymph % (Auto) 15.4 % 12/08/22 19:20 [place] % (Auto) 11.0 % 12/08/22 19:20 Eos % (Auto) 1.3 % 12/08/22 19:20 Baso % (Auto) 0.4 % 12/08/22 19:20 Neut # (Auto) 5.10 10^3/uL (1.8-7.7) 12/08/22 19:20 Lymph # (Auto) 1.1 10^3/uL (0.8-4.8) 12/08/22 19:20 [place] # (Auto) 0.8 10^3/uL (0.2-0.9) 12/08/22 19:20 Eos # (Auto) 0.1 10^3/uL (0.0-0.8) 12/08/22 19:20 Baso # (Auto) 0.0 10^3/uL (0.0-0.1) 12/08/22 19:20 Nucleated RBC % (auto) 0 % 12/08/22 19: Nucleated RBCs # 0.0 /100WBC 12/08/22 19:20 PT 15.60 SECONDS (12.1-14.9) H 12/08/22 19:20 INR 1.20 (0.8-1.2) 12/08/22 19:20 Sodium 138 mmol/L (136-145) 12/08/22 19:20 Potassium 4.3 mmol/L (3.5-5.1) 12/08/22 19:20 Chloride 100 mmol/L (98-107) 12/08/22 19:20 Carbon Dioxide 27 mmol/L (22-29) 12/08/22 19:20 Anion Gap 15.3 (5-19) 12/08/22 19:20 BUN 33 mg/dL (8-23) H 12/08/22 19:20 Creatinine 1.6 mg/dL (0.7-1.2) H 12/08/22 19:20 GFR Calculation 43.7 mL/min (90-130) L 12/08/22 19:20 Glucose 106 mg/dL (65-115) 12/08/22 19:20 Calculated Osmolality 294 mOsm/kg (285-295) 12/08/22 19:20 Lactic Acid 1.4 mmol/L (0.5-2.2) 12/08/22 21:03 Calcium 9.4 mg/dL (8.5-10.5) 12/08/22 19:20 Total Bilirubin 0.4 mg/dL (0.15-1.2) 12/08/22 19:20 AST 18 U/L (0-40) 12/08/22 19:20 ALT 20 U/L (0-41) 12/08/22 19:20 Alkaline Phosphatase 55 U/L (40-130) 12/08/22 19:20 Troponin T Baseline 101 ng/L (0-15) H* 12/08/22 19:20 Troponin T 120 Minute 103.5 ng/L (0-15) H 12/08/22 21:03 Delta Troponin T 2.5 ABS# (0-10) 12/08/22 21:03 NT-Pro-B Natriuret Pep 4195 pg/mL (0-125) H 12/08/22 19:20 Total Protein 6.4 g/dL (6.6-8.7) L 12/08/22 19:20 Albumin 3.6 g/dL (3.5-5.2) 12/08/22 19:20 Globulin 2.8 g/dL (1.3-4.6) 12/08/22 19:20 Procalcitonin 0.06 ng/mL (0-0.5) 12/08/22 21:03 EKG Data EKG 1: I personally reviewed and interpreted this EKG as follows: EKG interpretation date: 12/08/22 EKG interpretation time: 20:49 Prior EKG tracings: not available for review Interpretation: Incomplete right bundle branchEKG showed normal sinus rhythm with a first-degree AV block, ventricular rate 89, PA interval 236, QRS duration 106, QTc of 388, block, right ventricular hypertropy Discharge Plan Discharge Patient Disposition: Home Clinical Impression: Pneumonia, CHF (congestive heart failure) Condition: Stable Prescriptions: New levofloxacin 500 mg tablet 500 mg PO DAILY 7 Days Qty: 7 0RF prednisone 20 mg tablet 20 mg PO BID 7 Days Qty: 14 0RF metolazone 5 mg tablet 5 mg PO DAILY Qty: 5 0RF No Action cholecalciferol (vitamin D3) 125 mcg (5,000 unit) capsule 10,000 unit PO DAILY aspirin [Adult Low Dose Aspirin] 81 mg tablet,delayed release (DR/EC) 81 mg PO DAILY nitroglycerin 0.4 mg tablet, sublingual 0.4 mg sublingual Q5M PRN (Reason: chest pain) Qty: 25 3RF (DME) blood sugar diagnostic Strip See Rx Instructions .ROUTE .MEDSUPPLY Qty: 50 5RF Rx Instructions: one time day triamcinolone acetonide 0.1 % ointment 1 applic topical BID Qty: 80 0RF Rx Instructions: Apply to affected area no more than 2 weeks per month. Not for face magnesium oxide 500 mg capsule 500 mg PO DAILY mexiletine 200 mg capsule 200 mg PO Q8H Qty: 90 0RF docusate sodium [Colace] 100 mg capsule 100 mg PO DAILY Qty: 90 0RF (DME) OneTouch Ultra Test Strip See Rx Instructions .Route Qty: 100 5RF Rx Instructions: 3 times day as needed albuterol sulfate 2.5 mg /3 mL (0.083 %) solution for nebulization 2.5 mg inhalation .2 times day PRN (Reason: shortness of breath or wheezing) Qty: 180 2RF fenofibrate nanocrystallized [Tricor] 48 mg tablet 48 mg PO DAILY Qty: 90 0RF (DME) pen needle, diabetic 33 gauge x 5/32 needle See Rx Instructions .ROUTE .MEDSUPPLY Qty: 100 5RF Rx Instructions: 1 times day Stiolto Respimat 2.5-2.5 mcg/actuation mist 2 puff inhalation DAILY Qty: 4 3RF albuterol sulfate 90 mcg/actuation aerosol powdr breath activated 1 inh inhalation QID PRN (Reason: shortness of breath or wheezing) Qty: 1 3RF omega-3 fatty acids 500 mg capsule 500 mg PO DAILY atorvastatin 20 mg tablet 20 mg PO BEDTIME Qty: 90 0RF levothyroxine 175 mcg tablet 175 mcg PO DAILY Qty: 90 0RF lisinopril 2.5 mg tablet 2.5 mg PO DAILY Qty: 90 0RF Hold Instructions: hypotension semaglutide 1 mg/dose (2 mg/1.5 mL) pen injector 1 mg SUBCUT .weekly Qty: 3 2RF Rx Instructions: on Wednesdays spironolactone 25 mg tablet 25 mg PO DAILY Qty: 90 0RF isosorbide dinitrate 10 mg tablet 5 mg PO BID Qty: 180 1RF Rx Instructions: allow nitrate-free interval of 12-14 hrs per 24-hr period metoprolol tartrate 25 mg tablet 12.5 mg PO BID Qty: 90 0RF Rx Instructions: #90 not 180 duloxetine [Cymbalta] 20 mg capsule,delayed release(DR/EC) 20 mg PO BID Qty: 60 1RF furosemide 20 mg tablet 40 mg PO BID 30 Days Qty: 120 0RF Novolog FlexPen U-100 Insulin 100 unit/mL (3 mL) insulin pen See Rx Instructions .ROUTE .COMPLEX Qty: 15 0RF Rx Instructions: Inject, subcut, 3 times daily, after meals, based on sliding scale provided Levemir FlexTouch U-100 Insuln 100 unit/mL (3 mL) insulin pen 20 unit SUBCUT DAILY Qty: 15 0RF Discharge Orders: Discharge ED (Routine); Ordered 12/08/22 Ordered By: Gaduencio Bynum Referrals: Catarina Olsen, [facility] [Primary Care Provider] - 1 week Patient Instructions: Leg Edema (ED), Heart Failure (ED), Pneumonia - Bacterial Coding Level of Care Code ED General Activities Therapist for Zaire Sin
--- NOTE | 2022-12-08 21:07 | PC.NURSE ---
Pt brought back from waiting room to room 10 and placed on monitors at this time. Pt is transferred from his home O2 to ours - on 6L nasal cannula. Notable edema in bilateral lower extremities, notable open abrasion to left wrist/forearm from his fall tonight. Bleeding is controlled and bandages in places. Pt is able to use left arm and has full ROM in it.
[2022-12-08] MEDS: levofloxacin-dextrose 5 % 500 MG/100 ML PREMIX 100 MG IV (21:14)
[2022-12-08] MEDS: FUROsemide 10 mg/mL SDV 4mL 40 MG IVP (21:14)
[2022-12-08 21:30] LABS: Lactic Sepsis W/Reflex 1.4 mmol/L (0.5-2.2)
[2022-12-08 21:37] LABS: Procalcitonin 0.06 ng/mL (0-0.5)
[2022-12-08 22:08] LABS: Troponin 5 2HR 103.5 ng/L (0-15); Troponin 5 2HR Delta 2.5 ABS# (0-10)
[2022-12-08] MEDS: dexamethasone 10 mg/mL INJ IVP (23:19)
== END 2022-12-08 23:37 | disposition home or self-care (01) ==
PROVIDERS: Emergency Medicine; Emergency Provider Emergency Medicine; PCP Nurse Practitioner
DX: J18.9 Pneumonia, unspecified organism (principal); Z79.82 Long term (current) use of aspirin; Z79.4 Long term (current) use of insulin; Z87.891 Personal history of nicotine dependence; Z95.1 Presence of aortocoronary bypass graft; I25.10 Atherosclerotic heart disease of native coronary artery without angina pectoris; I13.0 Hypertensive heart and chronic kidney disease with heart failure and stage 1 through stage 4 chronic kidney disease, or unspecified chronic kidney disease; E11.22 Type 2 diabetes mellitus with diabetic chronic kidney disease; N18.2 Chronic kidney disease, stage 2 (mild); I50.9 Heart failure, unspecified; E78.2 Mixed hyperlipidemia
CPT/HCPCS: 36415; 71045; 80053; 83605; 83880; 84145; 84484; 85025; 85610; 87040; 93005; 96361; 96374; 96375; 99285; J1100; J1940; J1956

== ENCOUNTER → 2022-12-15 07:58 | Outpatient (BNVA) | payer MEDICARE, MEDICAID, SELFPAY | PROVIDERS: PCP Nurse Practitioner; Visit Provider Podiatrist Foot & Ankle Surgery | DX: I73.9 Peripheral vascular disease, unspecified (principal); G62.9 Polyneuropathy, unspecified; B35.1 Tinea unguium; E11.8 Type 2 diabetes mellitus with unspecified complications; N18.2 Chronic kidney disease, stage 2 (mild); E11.65 Type 2 diabetes mellitus with hyperglycemia; E11.22 Type 2 diabetes mellitus with diabetic chronic kidney disease; Z79.4 Long term (current) use of insulin | CPT/HCPCS: 11721 ==

== ENCOUNTER → 2022-12-20 15:53 | Outpatient (BNVA) | payer MEDICARE, SELFPAY | PROVIDERS: PCP Nurse Practitioner; Visit Provider Nurse Practitioner | DX: E78.2 Mixed hyperlipidemia (principal); E11.65 Type 2 diabetes mellitus with hyperglycemia; Z79.4 Long term (current) use of insulin; E03.9 Hypothyroidism, unspecified; I50.32 Chronic diastolic (congestive) heart failure; I50.9 Heart failure, unspecified | CPT/HCPCS: 80053; 83036; 83880 ==

== ENCOUNTER 2022-12-27 13:30 | Oncology outpatient (recurring) (ONCR) | payer MEDICARE, SELFPAY ==
[2022-12-13 12:20] VITALS: BP 97/57; PULSE 107; RESP 18; TEMP 35.7; O2SAT 93
[2022-12-13 12:33] LABS: Basophils % 0.2 %; Hematocrit 50.3 % (42.0-52.0); Lymphocytes # 0.8 10^3/uL (0.8-4.8); Lymphocytes % 6.8 %; Mean Corpuscular HGB Conc 31.8 g/dL (30.0-36.0); Mean Corpuscular Volume 91.3 fl (80-94); Mean Platelet Volume 10.1 fL (7.4-10.4); Monocytes # 0.7 10^3/uL (0.2-0.9); Monocytes % 5.9 %; Neutrophils # 10.39 10^3/uL (1.8-7.7); Neutrophils % 86.7 %; Nucleated Red Blood Cells % 0.2 %; Platelet Count 364 10^3/cmm (130-400); Red Blood Count 5.51 10^6/uL (4.1-5.3); Red Cell Distribution Width 14.6 % (12.1-15.1)
[2022-12-27 13:01] LABS: Basophils # 0.1 10^3/uL (0.0-0.1); Basophils % 0.5 %; Eosinophils # 0.2 10^3/uL (0.0-0.8); Eosinophils % 2.4 %; Hematocrit 52.7 % (42.0-52.0); Hemoglobin 16.4 g/dL (11.7-16.6); Lymphocytes # 1.8 10^3/uL (0.8-4.8); Lymphocytes % 19.7 %; Mean Corpuscular HGB Conc 31.1 g/dL (30.0-36.0); Mean Corpuscular Volume 93.3 fl (80-94); Mean Platelet Volume 10.5 fL (7.4-10.4); Monocytes # 0.7 10^3/uL (0.2-0.9); Monocytes % 7.5 %; Neutrophils # 6.41 10^3/uL (1.8-7.7); Neutrophils % 69.5 %; Nucleated Red Blood Cells % 0 %; Platelet Count 228 10^3/cmm (130-400); Red Blood Count 5.65 10^6/uL (4.1-5.3); Red Cell Distribution Width 15.8 % (12.1-15.1); White Blood Count 9.2 10^3/uL (4.0-10.0)
[2022-12-27 13:40] VITALS: BP 85/57; PULSE 73; RESP 18; TEMP 36; O2SAT 96
[2022-12-27 13:50] VITALS: BP 84/63
--- NOTE | 2022-12-27 16:31 | PC.NURSE ---
patient to monitor BP at home.
== END 2023-01-05 23:59 | disposition home or self-care (01) ==
PROVIDERS: PCP Nurse Practitioner; Visit Provider Internal Medicine Medical Oncology
DX: D75.1 Secondary polycythemia (principal)
CPT/HCPCS: 36415; 85025; 99195

== ENCOUNTER 2023-01-10 10:42 | Oncology outpatient (recurring) (ONCR) | payer MEDICARE, MEDICAID, SELFPAY ==
[2023-01-10 11:19] VITALS: BP 126/72; PULSE 74; RESP 18; TEMP 36.4; O2SAT 97
[2023-01-10 11:29] LABS: Basophils % 0.6 %; Eosinophils # 0.1 10^3/uL (0.0-0.8); Hematocrit 49.4 % (42.0-52.0); Hemoglobin 15.4 g/dL (11.7-16.6); Lymphocytes # 1.3 10^3/uL (0.8-4.8); Lymphocytes % 18.6 %; Mean Corpuscular HGB Conc 31.2 g/dL (30.0-36.0); Mean Corpuscular Hemoglobin 28.9 pg (28.0-34.0); Mean Corpuscular Volume 92.9 fl (80-94); Mean Platelet Volume 9.8 fL (7.4-10.4); Monocytes # 0.8 10^3/uL (0.2-0.9); Neutrophils # 4.83 10^3/uL (1.8-7.7); Neutrophils % 67.4 %; Nucleated Red Blood Cells % 0 %; Platelet Count 252 10^3/cmm (130-400); Red Blood Count 5.32 10^6/uL (4.1-5.3); Red Cell Distribution Width 18.4 % (12.1-15.1); White Blood Count 7.2 10^3/uL (4.0-10.0)
== END 2023-02-04 23:59 | disposition home or self-care (01) ==
PROVIDERS: Nurse Practitioner Family; PCP Nurse Practitioner; Visit Provider Internal Medicine Medical Oncology
DX: D75.1 Secondary polycythemia (principal); D45 Polycythemia vera
CPT/HCPCS: 36415; 85025

== ENCOUNTER 2023-01-18 00:34 | Inpatient (IN) | payer MEDICARE, MEDICAID, SELFPAY ==
[2023-01-18] VITALS (17 sets, daily range): BP systolic 91–128; BP diastolic 54–75; PULSE 59–114; RESP 13–22; TEMP 36.6–37.1; O2SAT 84–97; BMI 40.2
--- NOTE | 2023-01-18 00:36 | ECG_ITS ---
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 Measurements Intervals [place] Rate: 91 P: 47 MO: 238 QRS: 211 QRSD: 112 T: 23 QT: 331 QTc: 408 Interpretive Statements SINUS RHYTHM WITH FIRST DEGREE AV BLOCK INCOMPLETE RIGHT BUNDLE BRANCH BLOCK [90+ ms QRS DURATION, TERMINAL R IN V1/V2, 40+ ms S IN I/aVL/V4/V5/V6] RIGHT VENTRICULAR HYPERTROPHY [SOME/ALL OF: PROMINENT R IN V1, LATE TRANSITION, RAD, MARILEE, SSS] INFERIOR MYOCARDIAL INFARCTION , POSSIBLY ACUTE [40+ ms Q WAVE AND/OR ST/T ABNORMALITY IN II/aVF] ANTEROSEPTAL MYOCARDIAL INFARCTION , OF INDETERMINATE AGE [40+ ms Q WAVE IN V1-V4] Compared to ECG 12/08/2022 22:10:38 Right ventricular hypertrophy now present Myocardial infarct finding still present Electronically Signed On 01-18-2023 16:35:18 CDT by Moo Villarreal M.D. [id number]
--- NOTE | 2023-01-18 00:48 | ED_ITS ---
HPI - Chest Pain General: Chief Complaint: Chest Pain Stated Complaint: cp, back pain, left arm pain Time Seen by Provider: 01/18/23 00:37 Source: patient Mode of arrival: ambulatory Limitations: no limitations History of Present Illness: 62-year-old male has extensive history and history of coronary disease had CABG in the past has stent placed 2 years ago here he states that tonight he been having some chest pain pressure type pain going down his left arm along with some shortness of breath he has chronic shortness of breath and wears oxygen at home due to COPD he denies any fever denies any cough. Associated symptoms: Reports dyspnea; Deny abdominal pain, fever(s), nausea or vomiting Review of Systems Const: Denies: fever(s), chills, body aches or change in appetite Eyes: Denies: blurry vision or eye discomfort ENMT: Denies: throat pain or dental pain Card: Reports: chest pain Resp: Reports: dyspnea GI: Denies: abdominal pain, nausea, vomiting or diarrhea Musc: Denies: neck pain or back pain Skin/Breast: Denies: rash Neuro: Denies: headache(s) PFSH ED PFSH: Medical History Adult hypothyroidism CAD (coronary artery disease) CHF (congestive heart failure) CKD (chronic kidney disease), stage II Diabetes mellitus with hyperglycemia, with long-term current use of insulin Frequent PVCs Hypoxemia Mixed hyperlipidemia Obstructive sleep apnea Secondary polycythemia Slow transit constipation Vitamin D insufficiency Surgical History H/O angioplasty 2020 - Dr. Velez [facility] History of coronary artery bypass graft 2 grafts in 2006 Family History Mother Chronic kidney disease (CKD) at age 85 CAD (coronary artery disease) Pace maker Hypertension Father Cancer Prostate Sister Hypertension Osteoporosis Other Diabetes Hyperlipidemia Denies family history of Clotting disorder Dementia Psychiatric illness Suicide Anesthesia complication Bleeding disorder Lung disease Stroke Social History Smoking and tobacco status: former smoker Second hand smoke exposure: No Smoking risk assessment/counseling performed?: No Alcohol intake: never Desire information about alcohol rehabilitation?: No Counseling given: No Substance/Drug Use: never Desire information about substance/drug rehabilitation?: No Counseling given: No Caregiver/support person: No Lives independently: Yes Household members: significant other Housing: House Marital status: Single service: No Current occupational status: unemployed Do you think of yourself as: Straight/Heterosexual Current gender identity: Male Physical Exam Const: COMMON NORMALS: patient oriented x3 HENMT: COMMON NORMALS: normocephalic and atraumatic HEAD & SCALP: normocephalic and atraumatic Eye: COMMON NORMALS: Equal, round and reactive pupils present and EOMs intact bilaterally PUPIL: Yes Equal, round and reactive pupils present Neck/C-Spine: COMMON NORMALS: full ROM and supple Chest: COMMONS NORMALS: normal inspection of the chest and normal palpation of entire chest wall Resp: COMMON NORMALS: normal respiratory effort, No retractions, No use of accessory muscles and clear to auscultation bilaterally AUSCULTATION: clear to auscultation bilaterally Cardio: COMMON NORMALS: regular rate, regular rhythm and No murmurs present (Cardio) RATE: regular rate RHYTHM: regular rhythm GI: COMMON NORMALS: Normal to inspection, nondistended, normoactive bowel sounds present, Soft to palpation, non-tender and no masses PALPATION: Yes Soft to palpation Extremity: COMMON NORMALS: normal to inspection and full ROM Neuro: COMMON NORMALS: patient oriented x3, moves all extremities and no focal motor deficits Psych: COMMON NORMALS: mental status grossly normal, Normal thought process present and cooperative THOUGHT PROCESS: Normal thought process present Skin: COMMON NORMALS: no rashes or lesions noted and no wounds GENERAL SKIN EXAM: no rashes or lesions noted Course Vital Signs: Vital signs: Vital Signs Temperature 98.8 F 01/18/23 00:42 Pulse Rate 68 01/18/23 03:59 Respiratory Rate 16 01/18/23 03:59 Blood Pressure 128/69 01/18/23 03:59 Pulse Oximetry 93 01/18/23 03:59 Oxygen Delivery Me thod Nasal Cannula 01/18/23 03:59 Oxygen Flow Rate 5 01/18/23 03:59 MDM - Chest Pain Medical Decision Making Patient presents here with chest pain his 2-hour troponin is elevated with a delta of 16 EKGs shows no signs of ST elevation he has been pain-free here now. We will give him Lovenox spoke to hospitalist will admit. Medical Records I reviewed the patient's medical records. Lab Data I reviewed the patient's lab results. 01/18/23 00:50 01/18/23 01:37 Radiology Impressions Chest X-Ray 01/18/23 00:55 IMPRESSION: 1. Increasing areas of bibasilar atelectasis or scarring. 2. No other change has occurred from 12/08/2022. Laboratory Results WBC 9.3 10^3/uL (4.0-10.0) 01/18/23 00:50 RBC 5.55 10^6/uL (4.1-5.3) H 01/18/23 00:50 Hgb 16.3 g/dL (11.7-16.6) 01/18/23 00:50 Hct 52.3 % (42.0-52.0) H 01/18/23 00:50 MCV 94.2 fl (80-94) H 01/18/23 00:50 MCH 29.4 pg (28.0-34.0) 01/18/23 00:50 MCHC 31.2 g/dL (30.0-36.0) 01/18/23 00:50 RDW 18.5 % (12.1-15.1) H 01/18/23 00:50 Plt Count 296 10^3/cmm (130-400) 01/18/23 00:50 MPV 9.9 fL (7.4-10.4) 01/18/23 00:50 Neut % (Auto) 67.2 % 01/18/23 00:50 Lymph % (Auto) 18.5 % 01/18/23 00:50 [place] % (Auto) 12.2 % 01/18/23 00:50 Eos % (Auto) 1.1 % 01/18/23 00:50 Baso % (Auto) 0.5 % 01/18/23 00:50 Neut # (Auto) 6.26 10^3/uL (1.8-7.7) 01/18/23 00:50 Lymph # (Auto) 1.7 10^3/uL (0.8-4.8) 01/18/23 00:50 [place] # (Auto) 1.1 10^3/uL (0.2-0.9) H 01/18/23 00:50 Eos # (Auto) 0.1 10^3/uL (0.0-0.8) 01/18/23 00:50 Baso # (Auto) 0.1 10^3/uL (0.0-0.1) 01/18/23 00:50 Nucleated RBC % (auto) 0 % 01/18/23 00:50 Nucleated RBCs # 0.0 /100WBC 01/18/23 00:50 Sodium 137 mmol/L (136-145) 01/18/23 01:37 Potassium 4.6 mmol/L (3.5-5.1) 01/18/23 01:37 Chloride 96 mmol/L (98-107) L 01/18/23 01:37 Carbon Dioxide 32 mmol/L (22-29) H 01/18/23 01:37 Anion Gap 13.6 (5-19) 01/18/23 01:37 BUN 35 mg/dL (8-23) H 01/18/23 01:37 Creatinine 1.4 mg/dL (0.7-1.2) H 01/18/23 01:37 GFR Calculation 51.0 mL/min (90-130) L 01/18/23 01:37 Glucose 133 mg/dL (65-115) H 01/18/23 01:37 Calculated Osmolality 294 mOsm/kg (285-295) 01/18/23 01:37 Calcium 9.6 mg/dL (8.5-10.5) 01/18/23 01:37 Total Bilirubin 0.5 mg/dL (0.15-1.2) 01/18/23 01:37 AST 17 U/L (0-40) 01/18/23 01:37 ALT 17 U/L (0-41) 01/18/23 01:37 Alkaline Phosphatase 68 U/L (40-130) 01/18/23 01:37 Troponin T Baseline 42 ng/L (0-15) H 01/18/23 01:37 Troponin T 120 Minute 60.34 ng/L (0-15) H 01/18/23 03:00 Delta Troponin T 18.34 ABS# (0-10) H* 01/18/23 03:00 NT-Pro-B Natriuret Pep 1932 pg/mL (0-125) H 01/18/23 01:37 Total Protein 6.3 g/dL (6.6-8.7) L 01/18/23 01:37 Albumin 4.0 g/dL (3.5-5.2) 01/18/23 01:37 Globulin 2.3 g/dL (1.3-4.6) 01/18/23 01:37 Discharge Plan Discharge Patient Disposition: Admitted As Inpatient Admit Provider: Traci Trevino Clinical Impression: Non-ST elevation MO (NSTEMI) Condition: Stable Coding Level of Care Code ED Instrument Maintenance Supervisor for Zaire Sin
--- NOTE | 2023-01-18 00:55 | XRR_ITS ---
PROCEDURE INFORMATION: Exam: XR Chest Exam date and time: 01/18/2023 12:58 AM Age: 62 years old Clinical indication: Chest pressure; Prior surgery; Surgery date: 6+ months; Surgery type: Cabg. Coronary stents; Patient HX: C/O chest pain. History of chf and copd. ; Additional info: Cp TECHNIQUE: Imaging protocol: Radiologic exam of the chest. Views: 1 view. COMPARISON: CR (CHEST, ) 12/08/2022 6:49 PM FINDINGS: Lungs: Mildly progressive lung base hazy opacities. No new consolidation. Pleural spaces: Unremarkable. No pleural effusion. No pneumothorax. Heart/Mediastinum: The heart remains enlarged with CABG. Bones/joints: Unremarkable. XR/XR chest 1V portable [id number] IMPRESSION: 1. Increasing areas of bibasilar atelectasis or scarring. 2. No other change has occurred from 12/08/2022.
[2023-01-18 00:59] LABS: Basophils # 0.1 10^3/uL (0.0-0.1); Basophils % 0.5 %; Eosinophils # 0.1 10^3/uL (0.0-0.8); Eosinophils % 1.1 %; Hematocrit 52.3 % (42.0-52.0); Hemoglobin 16.3 g/dL (11.7-16.6); Lymphocytes # 1.7 10^3/uL (0.8-4.8); Lymphocytes % 18.5 %; Mean Corpuscular HGB Conc 31.2 g/dL (30.0-36.0); Mean Corpuscular Hemoglobin 29.4 pg (28.0-34.0); Mean Corpuscular Volume 94.2 fl (80-94); Mean Platelet Volume 9.9 fL (7.4-10.4); Monocytes # 1.1 10^3/uL (0.2-0.9); Monocytes % 12.2 %; Neutrophils # 6.26 10^3/uL (1.8-7.7); Neutrophils % 67.2 %; Nucleated Red Blood Cells % 0 %; Platelet Count 296 10^3/cmm (130-400); Red Blood Count 5.55 10^6/uL (4.1-5.3); Red Cell Distribution Width 18.5 % (12.1-15.1); White Blood Count 9.3 10^3/uL (4.0-10.0)
[2023-01-18] MEDS: ondansetron 2 mg/ML SDV 2 mL 4 MG IVP (01:09)
[2023-01-18] MEDS: morphine 4 mg/mL SDV 1 mL IVP (01:09)
[2023-01-18 02:09] LABS: Troponin(5th) Baseline 42 ng/L (0-15)
[2023-01-18 02:16] LABS: Alanine Aminotransferase 17 U/L (0-41); Alkaline Phosphatase 68 U/L (40-130); Anion Gap 13.6 (5-19); Aspartate Amino Transferase 17 U/L (0-40); Blood Urea Nitrogen 35 mg/dL (8-23); Calcium 9.6 mg/dL (8.5-10.5); Carbon Dioxide 32 mmol/L (22-29); Chloride 96 mmol/L (98-107); Globulin 2.3 g/dL (1.3-4.6); Glucose 133 mg/dL (65-115); NT Pro B Type Natriuretic Pept 1932 pg/mL (0-125); Osmolality Calculated 294 mOsm/kg (285-295); Potassium 4.6 mmol/L (3.5-5.1); Sodium 137 mmol/L (136-145); Total Bilirubin 0.5 mg/dL (0.15-1.2); Total Protein 6.3 g/dL (6.6-8.7)
--- NOTE | 2023-01-18 02:36 | ECG_ITS ---
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 Measurements Intervals [place] Rate: 83 P: 69 [place]: 235 QRS: 215 QRSD: 109 T: 26 QT: 342 QTc: 403 Interpretive Statements SINUS RHYTHM WITH FIRST DEGREE AV BLOCK INCOMPLETE RIGHT BUNDLE BRANCH BLOCK [90+ ms QRS DURATION, TERMINAL R IN V1/V2, 40+ ms S IN I/aVL/V4/V5/V6] RIGHT VENTRICULAR HYPERTROPHY [SOME/ALL OF: PROMINENT R IN V1, LATE TRANSITION, RAD, MARIELE, SSS] INFERIOR MYOCARDIAL INFARCTION , OF INDETERMINATE AGE [40+ ms Q WAVE AND/OR ST/T ABNORMALITY IN II/aVF] ANTEROSEPTAL MYOCARDIAL INFARCTION , OF INDETERMINATE AGE [40+ ms Q WAVE IN V1-V4] Compared to ECG 01/18/2023 00:48:25 No significant changes Electronically Signed On 01-18-2023 16:37:13 CDT by Moo Villarreal M.D. [id number]
[2023-01-18 03:31] LABS: Troponin 5 2HR 60.34 ng/L (0-15)
[2023-01-18 03:33] LABS: Troponin 5 2HR Delta 18.34 ABS# (0-10)
[2023-01-18] MEDS: enoxaparin 120 mg/0.8 mL Syringe 140 MG SUBCUT (04:17)
--- NOTE | 2023-01-18 05:18 | PM.HP ---
Providers/Chief Complaint Admitting Physician: Traci Trevino MD Primary Care Provider: Catarina Olsen, [employer] Chief Complaint: cp, back pain, left arm pain History of Present Illness Henry Perez is a 62 year old male with h/o CAD s/p CABG 2006 and PCI 2020, CHF, COPD, chronic hypercarbic respiratory failure on 3-4L oxygen at home presented with c/o left sided chest pain, radiating down the left arm and SOB. Chest pain resolved with 1 dose of morphine in ER. Denies any nausea, vomiting, cough, dizziness or urinary complaints. He has multiple admissions for CHF exacerbation in the past. last 2D ECHO done was in 2020 showed EF 55%, mild septal bounce secondary to interventricular conduction delay, grade 1 DD, mild aortic valve calcification. Review of Systems Const: Denies: fever(s), chills, body aches or change in appetite Eyes: Denies: blurry vision or eye discomfort ENMT: Denies: throat pain or dental pain Card: Reports: chest pain Resp: Reports: dyspnea GI: Denies: abdominal pain, nausea, vomiting or diarrhea Musc: Denies: neck pain or back pain Skin/Breast: Denies: rash Neuro: Denies: headache(s) Medications/Allergies Home Medications Medication Instructions Recorded Confirmed Last Taken Type aspirin 81 mg tablet,delayed 81 mg PO QAM 12/24/19 01/18/23 09/16/22 History release (Adult Low Dose Aspirin) cholecalciferol (vitamin D3) 125 10,000 unit PO QAM 03/02/21 01/18/23 09/16/22 History mcg (5,000 unit) capsule blood sugar diagnostic #50 ea 11/17/21 01/18/23 Unknown Rx omega-3 fatty acids 500 mg capsule 500 mg PO DAILY 12/28/21 01/18/23 09/16/22 History magnesium oxide 500 mg capsule 500 mg PO QAM 02/17/22 01/18/23 09/16/22 History mexiletine 200 mg capsule 200 mg PO Q8H #90 caps 02/17/22 01/18/23 09/16/22 Rx pen needle, diabetic 33 gauge x #100 ea 07/08/22 01/18/23 Unknown Rx albuterol sulfate 90 mcg/actuation 1 inh inhalation QID PRN shortness 10/26/22 01/18/23 Unknown Rx breath activated powder inhaler of breath or wheezing #1 ea isosorbide dinitrate 10 mg tablet 5 mg PO BID #180 tabs 11/01/22 01/18/23 Unknown Rx atorvastatin 20 mg tablet 20 mg PO BEDTIME #90 tabs 12/20/22 01/18/23 Unknown Rx blood sugar diagnostic (OneTouch #100 ea 12/20/22 01/18/23 Unknown Rx Ultra Test strips) fenofibrate nanocrystallized 48 mg 48 mg PO DAILY #90 tabs 12/20/22 01/18/23 Unknown Rx tablet (Tricor) levothyroxine 175 mcg tablet 175 mcg PO DAILY #90 tabs 12/20/22 01/18/23 Unknown Rx semaglutide 1 mg/dose (2 mg/1.5 1 mg (0.75 mL) SUBCUT .weekly #3 mL 12/20/22 01/18/23 Unknown Rx mL) subcutaneous pen injector spironolactone 25 mg tablet 25 mg PO DAILY #90 tabs 12/20/22 01/18/23 Unknown Rx furosemide 20 mg tablet 40 mg PO BID #180 tabs 12/21/22 01/18/23 Unknown Rx albuterol sulfate 2.5 mg/3 mL 2.5 mg inhalation BID PRN 01/18/23 01/18/23 Unknown History (0.083 %) solution for nebulization Shortness Of Breath docusate sodium 100 mg capsule 100 mg PO DAILY PRN Constipation 01/18/23 01/18/23 Unknown History (Colace) duloxetine 20 mg capsule,delayed 20 mg PO BID 01/18/23 01/18/23 Unknown History release insulin detemir U-100 100 unit/mL 40 unit SUBCUT QAM 01/18/23 01/18/23 Unknown History (3 mL) subcutaneous pen (Levemir FlexPen) insulin lispro 100 unit/mL See Rx Instructions .Route .COMPLEX 01/18/23 01/18/23 Unknown History subcutaneous pen (Humalog KwikPen (U-100) Insulin) lisinopril 2.5 mg tablet 2.5 mg PO QAM 01/18/23 01/18/23 Unknown History nitroglycerin 0.4 mg sublingual 0.4 mg sublingual Q5M PRN Chest 01/18/23 01/18/23 Unknown History tablet (Nitrostat) Pain triamcinolone acetonide 0.1 % 1 applic topical BID PRN unknown 01/18/23 01/18/23 Unknown History topical ointment Allergies Allergy/AdvReac Type Severity Reaction Status Date / Time empagliflozin Allergy Intermediate Hives Verified 12/20/22 14:12 influenza virus vaccine ts Allergy Intermediate ALGY-Conges Verified 12/20/22 14:12 [id number] (36 mos,up) shun [From Fluarix] Penicillins Allergy Intermediate Hives Verified 12/20/22 14:12 glipizide Allergy ALGY-Rash Verified 12/20/22 14:12 olodaterol Allergy DIZZY/SHAKY Verified 01/18/23 09:45 [From Stiolto Respimat] tiotropium Allergy DIZZY/SHAKY Verified 01/18/23 09:45 [From Stiolto Respimat] PFSH Acute PFSH: Medical History (Updated 01/18/23 @ 14:48 by Ion Parks MD) Adult hypothyroidism CAD (coronary artery disease) CHF (congestive heart failure) CKD (chronic kidney disease), stage II COVID-19 vaccination declined Diabetes mellitus with hyperglycemia, with long-term current use of insulin Frequent PVCs Hypoxemia Mixed hyperlipidemia Obstructive sleep apnea Secondary polycythemia Slow transit constipation Vitamin D insufficiency Surgical History H/O angioplasty 2020 - Dr. Velez [facility] History of coronary artery bypass graft 2 grafts in 2006 Family History Mother Chronic kidney disease (CKD) at age 85 CAD (coronary artery disease) Pace maker Hypertension Father Cancer Prostate Sister Hypertension Osteoporosis Other Diabetes Hyperlipidemia Denies family history of Clotting disorder Dementia Psychiatric illness Suicide Anesthesia complication Bleeding disorder Lung disease Stroke Social History Smoking and tobacco status: former smoker Second hand smoke exposure: No Smoking risk assessment/counseling performed?: No Alcohol intake: never Desire information about alcohol rehabilitation?: No Counseling given: No Substance/Drug Use: never Desire information about substance/drug rehabilitation?: No Counseling given: No Caregiver/support person: No Lives independently: Yes Household members: significant other Housing: House Marital status: Single service: No Current occupational status: unemployed Do you think of yourself as: Straight/Heterosexual Current gender identity: Male Vitals/I&O/Wt Last Vital Signs Temp 97.8 F 01/18/23 04:20 Pulse 83 01/18/23 04:20 Resp 13 01/18/23 04:20 BP 128/75 01/18/23 04:20 Pulse Ox 97 01/18/23 04:20 O2 Del Method Nasal Cannula 01/18/23 04:20 O2 Flow Rate 6 01/18/23 04:20 01/17/23 01/17/23 01/18/23 14:59 22:59 06:59 Intake Total 480 / 480 Output Total 850 / 850 Balance -370 / -370 Weight last 48 hrs Weight 138.346 kg Physical Exam Narrative: AAOx3, comfortable, obese Chest clear to ascultation B/L, on supplemental oxygen @6L/M CVS S1S2 normal, no murmurs heard Abdomen soft non tender, normal bowel sounds. Ext- no edema. Data 01/18/23 00:50 01/18/23 17:54 CXR: Radiologist's impression: B/L worsening basilar atelectasis. EKG 1: My Interpretation: compared to previous EKG 12/08/22 no new changes seen EKG computer-generated impression: Sinus rhythm with first degree AV block, incomplete RBBB, RVH, inferior myocardial infarction, anteroseptal myocardial infacrtion of indeterminate age Attestations Medical Necessity Statement*: patient admited for NSTEMI, need further cardiac work up and cardiology consult. Time Spent in Patient Care: 30min Coding Level of Care Code 59724 Diagnoses Time Spent (min) 30
[2023-01-18 08:09] LABS: Troponin 5 6HR 162.6 ng/L (0-15); Troponin 5 6HR Delta 120.6 ng/L (0-12)
--- NOTE | 2023-01-18 08:13 | ECG_ITS ---
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 Measurements Intervals [place] Rate: 78 P: 60 AL: 243 QRS: 224 QRSD: 120 T: -7 QT: 376 QTc: 429 Interpretive Statements SINUS RHYTHM WITH FIRST DEGREE AV BLOCK RIGHT AXIS DEVIATION [QRS AXIS > 100] RIGHT BUNDLE BRANCH BLOCK [120+ ms QRS DURATION, UPRIGHT V1, 40+ ms S IN I/aVL/V4/V5/V6] INFERIOR MYOCARDIAL INFARCTION , OF INDETERMINATE AGE [40+ ms Q WAVE AND/OR ST/T ABNORMALITY IN II/aVF] ANTEROSEPTAL MYOCARDIAL INFARCTION , OF INDETERMINATE AGE [40+ ms Q WAVE IN V1-V4] MODERATE T-WAVE ABNORMALITY, CONSIDER LATERAL ISCHEMIA [-0.1+ mV T-WAVE IN I/aVL/V5/V6] Compared to ECG 01/18/2023 01:12:59 Right-axis deviation now present Electronically Signed On 01-18-2023 16:41:40 CDT by Moo Villarreal M.D. [id number]
--- NOTE | 2023-01-18 09:40 | PC.PHAR ---
PT STATES HE TAKES CARE OF HIS OWN MEDICATIONS-PT STATES DR NEHEMIAS HERNANDEZ HIS METOPROLOL TARTRATE 12.5MG BID EXT SHOWS LAST FILLED 12/21/22 90D/S PT STATES NOT TAKEN FOR A FEW MONTHS-PT STATES HIS CYMBALTA 20MG BID IS ON HOLD STATES NOT TAKEN FOR A MONTH EXT SHOWS LAST FILLED 01/10/23 30D/S-PT STATES HE USES LEVEMIR FLEXTOUCH U-100 40 UNITS QAM EXT SHOWS FILLED 01/12/23 20 UNITS DAILY-EXT SHOWS A STIOLTO RESPIMAT FILLED 11/21/22 PT STATES HE CANT USE THAT STATES IT MAKES HIM DIZZY AND SHAKY-NOTES ARE MADE IN THE PHARMACY COMMENTS
[2023-01-18] MEDS: levothyroxine 175 mcg Tablet PO (09:59)
[2023-01-18] MEDS: cholecalciferol (vitamin D3) 5,000 unit Tablet 10000 UNIT PO (09:59)
[2023-01-18] MEDS: aspirin 81 mg EC Tablet PO (09:59)
[2023-01-18] MEDS: FUROsemide 20 mg Tablet 40 MG PO (10:00)
[2023-01-18] MEDS: magnesium oxide 400 mg tablet PO (10:00)
[2023-01-18] MEDS: metoprolol tartrate 25 mg Tablet 12.5 MG PO ×2 (10:01→18:37)
[2023-01-18 10:21] LABS: Glucose Point of Care 128 mg/dL (70-110)
[2023-01-18] MEDS: fenofibrate 48 mg Tablet PO (10:43)
[2023-01-18] MEDS: insulin glargine 100 units/1 mL 40 UNIT SUBCUT (10:44)
--- NOTE | 2023-01-18 11:45 | USCV_ITS ---
Henry Perez Age: 62 Gender: M : 1960 Exam Date: 01/18/2023 12:51 Ordering Phys: Ion Parks MD Technologist: Sebastien Woodard Exam Location: [facility] [place] [facility] [place] Indication: nstimi BP: 92 / 65 HR: 72 Rhythm: Sinus Technical Quality: Adequate MEASUREMENTS (Male / Female) Normal Values 2D ECHO LV Diastolic Diameter PLAX 2.7 cm 4.2 - 5.9 / 3.9 - 5.3 cm LV Systolic Diameter PLAX 2.4 cm IVS Diastolic Thickness 1.1 cm 0.6 - 1.0 / 0.6 - 0.9 cm IVS Systolic Thickness 1.8 cm LVPW Diastolic Thickness 1.2 cm 0.6 - 1.0 / 0.6 - 0.9 cm LVPW Systolic Thickness 1.3 cm LVOT Diameter 2.1 cm LV Ejection Fraction 2D Teich 25.9 % LA Diameter 3.5 cm DOPPLER TR Peak Velocity 269.7 cm/s TR Peak Gradient 29.1 mmHg TV Peak E Velocity 119.0 cm/s Right Atrial Pressure 3.0 mmHg Pulmonary Artery Systolic Pressu 32.1 mmHg FINDINGS Left Ventricle Technically very limited quality echocardiogram because of poor ultrasonic windows. Grossly LV systolic function is mildly reduced. However regional wall motion abnormalities cannot be assessed because of limited visualization. Right Ventricle Not well-visualized Right Atrium Not well-visualized Left Atrium Not well-visualized Mitral Valve Not well-visualized Aortic Valve Not well-visualized Tricuspid Valve Not well-visualized. Trace of tricuspid regurgitation. Insufficient TR jet to evaluate RVSP. Pulmonic Valve Not well-visualized Pericardium Not well visualized Aorta Normal size IVC Not well visualized CONCLUSIONS Technically very limited quality echocardiogram because of poor ultrasonic windows. Grossly LV systolic function mildly reduced. Regional wall motion abnormalities cannot be assessed because of limited visualization. Comparison with prior echocardiograms not possible because of quality of current study. Rich Ceron MD (Electronically Signed) Final Date: 18 January 2023 17:45 S
[2023-01-18] MEDS: sodium chloride 0.9% 1,000 ML 75 ML IV (12:18)
[2023-01-18] MEDS: pantoprazole DR 40 mg Tablet PO (12:18)
[2023-01-18 12:30] LABS: Procalcitonin 0.03 ng/mL (0-0.5); Thyroid Stimulating Hormone 0.29 uIU/mL (0.27-4.20)
[2023-01-18] MEDS: perflutren protein-a microsphr 0.22 mg/mL SDV 3 mL IV (13:48)
--- NOTE | 2023-01-18 14:43 | P.PN_ITS ---
Subjective Subjective: H&P and labs appreciated. On examination patient sitting comfortably in bed on 5 to 6 L of oxygen supplementation. Patient states baseline he is on 3 L at rest and 6 L on exertion. He does not use a CPAP though does carry a history of obstructive sleep apnea. States he present to the hospital last night because of acute chest pain that started happening at around 11 PM last night while he was sitting at the edge of his bed. Pain had subsided by the time he presented to the ER. He states he was doing fine till around last night. Denies any nausea vomiting, headache. Blood work appreciated for no leukocytosis, normal hemoglobin, creatinine of 1.4 with BUN of 35, delta troponin of 120 and 6 hours Vitals/I&O/Wt Last Vital Signs Temp 97.8 F 01/18/23 04:20 Pulse 78 01/18/23 12:00 Resp 17 01/18/23 12:00 BP 92/74 01/18/23 12:00 Pulse Ox 88 L 01/18/23 12:00 O2 Del Method Nasal Cannula 01/18/23 12:00 O2 Flow Rate 6 01/18/23 08:25 01/17/23 01/18/23 01/18/23 22:59 06:59 14:59 Intake Total 480 / 480 Output Total 850 / 850 650 / 650 Balance -370 / -370 -650 / -650 Weight last 48 hrs Weight 138.346 kg Physical Exam Narrative: General: No acute distress, AO x3, on nasal cannula oxygen supplementation HEENT: PERRLA, pupils bilaterally equal and reactive Chest: Bronchial breath sounds all over lung wong with occasional rhonchi and coarse crackles present all over lung wong CVS: S1-S2 regular, soft pansystolic murmur present at apex 2/6, pansystolic murmur present at fourth intercostal left retrosternal 2/6, no tachycardia, no gallops, no rubs Abdomen: Soft, nontender, no organomegaly, bowel sounds present Neuro: No focal deficits, no facial deformity, AO x3, power 5/5 in all limbs Data 01/18/23 00:50 01/18/23 01:37 A&P Assessment and plan (1) Non-ST elevation VA (NSTEMI): Positive delta troponins. Continue with aspirin, statin. Will give extra 243 mg of aspirin to finish a full load of aspirin for today. Start on full dose Lovenox 1 mg/kg body weight 12 hourly.. Check A1c, lipid panel. Check echocardiogram. Patient does have history of cardiac angiogram done in 2020 when he was found to have hemodynamically insignificant lesion based on IFR. We will consult cardiology for further recommendations. Most likely patient will need cardiac angiogram. (2) CAD (coronary artery disease): History of post CABG. (3) CKD (chronic kidney disease), stage II: Baseline creatinine more recently since earlier this year has been from 1.3-1.4. Check urine lites, urinalysis, urine creatinine, urine eosinophils. Medical reconciliation done for nephrotoxic drugs. Hold off on spironolactone, ANUPAMA inhibitors for now given need for possible cardiac angiogram. Gentle IV hydration with normal saline at 50 cc/h. Watch for fluid overload. (4) CHF (congestive heart failure): Last echocardiogram from 2020 shows a normal EF of 55% with grade 1 diastolic dysfunction, moderate aortic valve calcification. History of diastolic heart failure. Repeating cardiac echocardiogram. Qualifiers: Heart failure type: diastolic Heart failure chronicity: chronic Qualified Code(s): I50.32 - Chronic diastolic (congestive) heart failure (5) Acute and chronic respiratory failure: Requiring 3 L at baseline at rest and 6 L on exertion. Most likely in setting of congestive heart failure, COPD and obstructive sleep apnea. Gentle IV hydration as above while watching for fluid overload. Hold off on home dose of Lasix. Start on DuoNebs every 6 hour, budesonide twice daily. Oxygen supplementation keeping saturation over 88%. (6) Chronic hypercapnic respiratory failure: (7) JACINTO and COPD overlap syndrome: (8) Diabetes mellitus with hyperglycemia, with long-term current use of insulin: Check A1c. Continue with home dose of glargine at 40 units daily. Start on insulin sliding scale at moderate dose protocol before meals and at bedtime. Cardiac carb consistent diet. 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 Cardiac carb consistent diet. Full dose Lovenox will suffice as DVT prophylaxis. Protonix for PUD prophylaxis. Discussed in detail with patient for possible need of cardiac angiogram though concerns are with borderline elevated creatinine in setting of possible CKD. Patient is agreeable. Cardiology consulted. Attestations Medical Necessity Statement*: Requires further hospitalization for management of non-ST elevation VA in a patient with history of CAD post CABG requiring cardiac angiogram with CKD and acute on chronic respiratory failure in setting of possible congestive heart failure Diagnoses Non-ST elevation VA (NSTEMI) I21.4 CAD (coronary artery disease) I25.10 CKD (chronic kidney disease), stage II N18.2 CHF (congestive heart failure) I50.32 Heart failure type: diastolic Heart failure chronicity: chronic Acute and chronic respiratory failure J96.20 Chronic hypercapnic respiratory failure J96.12 JACINTO and COPD overlap syndrome G47.33; J44.9 Diabetes mellitus with hyperglycemia, with long-term current use of insulin E11.65; Z79.4 Diabetes mellitus type: type 2
[2023-01-18 15:57] LABS: Add Urine Microscopic? NO; Charge for UA Resulting for Rev
[2023-01-18] MEDS: enoxaparin 40 mg/0.4 mL Syringe SUBCUT (16:01)
[2023-01-18] MEDS: enoxaparin 100 mg/mL Syringe SUBCUT (16:01)
[2023-01-18 16:05] LABS: Bilirubin Urine Neg (Negative); Blood Urine Neg (Negative); Glucose Urine UA Norm (Normal); Ketones Urine Negative (Negative); Leukocyte Esterase Urine Negative (Negative); Nitrate Urine Negative (Negative); Protein Urine Neg (Negative); Urine Appearance Clear (CLEAR); Urine Color Yellow (Yellow); Urobilinogen Urine Norm (Negative); pH Urine 6 (5-7)
[2023-01-18 16:58] LABS: Glucose Point of Care 136 mg/dL (70-110)
--- NOTE | 2023-01-18 17:27 | PM.CONSULT ---
Providers/Reason For Consult Consulting Physician/Specialty*: Rich Ceron MD/ Cardiology Reason for Consult*: NSTEMI Requesting Physician: Dr Parks Attending Physician: Ion Parks MD Primary Care Provider: MIRANDA Molrey History of Present Illness History of Present Illness Henry Perez is a 62 year old male with past medical history, COPD, congestive heart failure who presented to hospital with chest discomfort. He noted significant substernal chest pain radiating to left arm.it was severe. By the time he came to the emergency room it had subsided. Troponins increased significantly from 42 at baseline to 162 at 6 hours. EKG showed normal sinus rhythm with no significant ST-T changes He is chronically on oxygen. Also has CKD. Creatinine is 1.4. Review of Systems Const: Denies: fever(s), chills, body aches or change in appetite Eyes: Denies: blurry vision or eye discomfort ENMT: Denies: throat pain or dental pain Card: Reports: chest pain Resp: Reports: dyspnea GI: Denies: abdominal pain, nausea, vomiting or diarrhea Musc: Denies: neck pain or back pain Skin/Breast: Denies: rash Neuro: Denies: headache(s) Medications/Allergies Home Medications Medication Instructions Recorded Confirmed Last Taken Type aspirin 81 mg tablet,delayed 81 mg PO QAM 12/24/19 01/18/23 09/16/22 History release (Adult Low Dose Aspirin) cholecalciferol (vitamin D3) 125 10,000 unit PO QAM 03/02/21 01/18/23 09/16/22 History mcg (5,000 unit) capsule blood sugar diagnostic #50 ea 11/17/21 01/18/23 Unknown Rx omega-3 fatty acids 500 mg capsule 500 mg PO DAILY 12/28/21 01/18/23 09/16/22 History magnesium oxide 500 mg capsule 500 mg PO QAM 02/17/22 01/18/23 09/16/22 History mexiletine 200 mg capsule 200 mg PO Q8H #90 caps 02/17/22 01/18/23 09/16/22 Rx pen needle, diabetic 33 gauge x #100 ea 07/08/22 01/18/23 Unknown Rx albuterol sulfate 90 mcg/actuation 1 inh inhalation QID PRN shortness 10/26/22 01/18/23 Unknown Rx breath activated powder inhaler of breath or wheezing #1 ea isosorbide dinitrate 10 mg tablet 5 mg PO BID #180 tabs 11/01/22 01/18/23 Unknown Rx atorvastatin 20 mg tablet 20 mg PO BEDTIME #90 tabs 12/20/22 01/18/23 Unknown Rx blood sugar diagnostic (OneTouch #100 ea 12/20/22 01/18/23 Unknown Rx Ultra Test strips) fenofibrate nanocrystallized 48 mg 48 mg PO DAILY #90 tabs 12/20/22 01/18/23 Unknown Rx tablet (Tricor) levothyroxine 175 mcg tablet 175 mcg PO DAILY #90 tabs 12/20/22 01/18/23 Unknown Rx semaglutide 1 mg/dose (2 mg/1.5 1 mg (0.75 mL) SUBCUT .weekly #3 mL 12/20/22 01/18/23 Unknown Rx mL) subcutaneous pen injector spironolactone 25 mg tablet 25 mg PO DAILY #90 tabs 12/20/22 01/18/23 Unknown Rx furosemide 20 mg tablet 40 mg PO BID #180 tabs 12/21/22 01/18/23 Unknown Rx albuterol sulfate 2.5 mg/3 mL 2.5 mg inhalation BID PRN 01/18/23 01/18/23 Unknown History (0.083 %) solution for nebulization Shortness Of Breath docusate sodium 100 mg capsule 100 mg PO DAILY PRN Constipation 01/18/23 01/18/23 Unknown History (Colace) duloxetine 20 mg capsule,delayed 20 mg PO BID 01/18/23 01/18/23 Unknown History release insulin detemir U-100 100 unit/mL 40 unit SUBCUT QAM 01/18/23 01/18/23 Unknown History (3 mL) subcutaneous pen (Levemir FlexPen) insulin lispro 100 unit/mL See Rx Instructions .Route .COMPLEX 01/18/23 01/18/23 Unknown History subcutaneous pen (Humalog KwikPen (U-100) Insulin) lisinopril 2.5 mg tablet 2.5 mg PO QAM 01/18/23 01/18/23 Unknown History nitroglycerin 0.4 mg sublingual 0.4 mg sublingual Q5M PRN Chest 01/18/23 01/18/23 Unknown History tablet (Nitrostat) Pain triamcinolone acetonide 0.1 % 1 applic topical BID PRN unknown 01/18/23 01/18/23 Unknown History topical ointment Allergies Allergy/AdvReac Type Severity Reaction Status Date / Time empagliflozin Allergy Intermediate Hives Verified 12/20/22 14:12 influenza virus vaccine ts Allergy Intermediate ALGY-Conges Verified 12/20/22 14:12 [id number] (36 mos,up) shun [From Fluarix] Penicillins Allergy Intermediate Hives Verified 12/20/22 14:12 glipizide Allergy ALGY-Rash Verified 12/20/22 14:12 olodaterol Allergy DIZZY/SHAKY Verified 01/18/23 09:45 [From Stiolto Respimat] tiotropium Allergy DIZZY/SHAKY Verified 01/18/23 09:45 [From Stiolto Respimat] Current Medications Generic Name Dose Route Start Last Admin Trade Name Freq PRN Reason Stop Dose Admin Aspirin 81 mg 01/18/23 09:00 01/18/23 09:59 Aspirin 81 Mg Ec Tablet PO 81 mg DAILY ARSALAN Administration Docusate Sodium 100 mg 01/18/23 09:00 01/18/23 10:03 Docusate Sodium 100 Mg Capsule PO Not Given DAILY ARSALAN Enoxaparin Sodium 100 mg 01/18/23 15:00 01/18/23 16:01 Enoxaparin 100 Mg/Ml Syringe SUBCUT 100 mg Q12H ARSALAN Administration Enoxaparin Sodium 40 mg 01/18/23 15:00 01/18/23 16:01 Enoxaparin 40 Mg/0.4 Ml Syringe SUBCUT 40 mg Q12H ARSALAN Administration Fenofibrate 48 mg 01/18/23 09:00 01/18/23 10:43 Fenofibrate 48 Mg Tablet PO 48 mg DAILY ARSALAN Administration Furosemide 40 mg 01/18/23 09:00 01/18/23 10:00 Furosemide 20 Mg Tablet PO 40 mg BID ARSALAN Administration Sodium Chloride 1,000 mls @ 75 mls/hr 01/18/23 11:45 01/18/23 12:18 Sodium Chloride 0.9% IV 01/19/23 01:04 75 mls/hr .[id number] ARSALAN Administration Insulin Glargine 40 unit 01/18/23 09:00 01/18/23 10:44 Insulin Glargine 100 Units/1 Ml SUBCUT 40 unit DAILY ARSALAN Administration Insulin Human Lispro 0 unit 01/18/23 12:00 01/18/23 17:16 Insulin Lispro 100 Unit/1 Ml SUBCUT Not Given WM&BEDTIME [facility] Protocol Levothyroxine Sodium 175 mcg 01/18/23 09:00 01/18/23 09:59 Levothyroxine 175 Mcg Tablet PO 175 mcg DAILY ARSALAN Administration Lisinopril 2.5 mg 01/18/23 09:00 01/18/23 10:54 Lisinopril 2.5 Mg Tablet PO Not Given DAILY ARSALAN Magnesium Oxide 400 mg 01/18/23 09:00 01/18/23 10:00 Magnesium Oxide 400 Mg Tablet PO 400 mg DAILY ARSALAN Administration Metoprolol Tartrate 12.5 mg 01/18/23 09:00 01/18/23 10:01 Metoprolol Tartrate 25 Mg Tablet PO 12.5 mg BID ARSALAN Administration Non-Formulary Medication 500 mg 01/18/23 09:00 01/18/23 10:05 [place]-3 Fatty Acids PO Not Given DAILY [facility] Non-Formulary Medication 200 mg 01/18/23 05:15 01/18/23 13:44 Mexiletine PO 200 mg Q8H ARSALAN Administration Pantoprazole Sodium 40 mg 01/18/23 11:45 01/18/23 12:[address] 40 Mg Tablet PO 40 mg DAILY ARSALAN Administration Triamcinolone Acetonide 1 applic 01/18/23 09:00 01/18/23 17:16 Triamcinolone 0.1% Oint 15 Gm TOPICAL Not Given BID [facility] Vitamin D 10,000 unit 01/18/23 09:00 01/18/23 09:59 Cholecalciferol (Vitamin D3) 5,000 Unit Tablet PO 10,000 unit DAILY ARSALAN Administration PFSH Acute PFSH: Medical History Adult hypothyroidism CAD (coronary artery disease) CHF (congestive heart failure) CKD (chronic kidney disease), stage II COVID-19 vaccination declined Diabetes mellitus with hyperglycemia, with long-term current use of insulin Frequent PVCs Hypoxemia Mixed hyperlipidemia Obstructive sleep apnea Secondary polycythemia Slow transit constipation Vitamin D insufficiency Surgical History H/O angioplasty 2020 - Dr. Velez [facility] History of coronary artery bypass graft 2 grafts in 2006 Family History Mother Chronic kidney disease (CKD) at age 85 CAD (coronary artery disease) Pace maker Hypertension Father Cancer Prostate Sister Hypertension Osteoporosis Other Diabetes Hyperlipidemia Denies family history of Clotting disorder Dementia Psychiatric illness Suicide Anesthesia complication Bleeding disorder Lung disease Stroke Social History Smoking and tobacco status: former smoker Second hand smoke exposure: No Smoking risk assessment/counseling performed?: No Alcohol intake: never Desire information about alcohol rehabilitation?: No Counseling given: No Substance/Drug Use: never Desire information about substance/drug rehabilitation?: No Counseling given: No Caregiver/support person: No Lives independently: Yes Household members: significant other Housing: House Marital status: Single service: No Current occupational status: unemployed Do you think of yourself as: Straight/Heterosexual Current gender identity: Male Vitals/I&O/Wt Last Vital Signs Temp 97.8 F 01/18/23 04:20 Pulse 70 01/18/23 16:00 Resp 14 01/18/23 16:00 BP 91/60 01/18/23 16:00 Pulse Ox 91 01/18/23 16:00 O2 Del Method Nasal Cannula 01/18/23 16:00 O2 Flow Rate 6 01/18/23 15:05 01/18/23 01/18/23 01/18/23 06:59 14:59 22:59 Intake Total 480 / 480 Output Total 850 / 850 650 / 650 Balance -370 / -370 -650 / -650 Weight last 48 hrs Weight 305 lb Physical Exam Narrative: GENERAL: Patient is alert, awake and oriented x3. [] NECK: No jugular vein distension. [] HEENT: No cyanosis. No icterus. No pallor. [] HEART: Regular S1 and S2. No murmur, rub or gallop. [] LUNGS: Diminished air entry bilaterally ABDOMEN: Soft, nontender and nondistended. Positive bowel sounds. No guarding, rebound or tenderness. [] CENTRAL NERVOUS SYSTEM: Grossly nonfocal. [] EXTREMITIES: Lower extremities with 1+ edema bilaterally. Data 01/19/23 05:33 01/18/23 17:54 A&P Assessment and plan (1) Non-ST elevation NE (NSTEMI): (2) Chronic hypercapnic respiratory failure: (3) CAD (coronary artery disease): (4) CHF (congestive heart failure): Qualifiers: Heart failure type: diastolic Heart failure chronicity: chronic Qualified Code(s): I50.32 - Chronic diastolic (congestive) heart failure (5) JACINTO and COPD overlap syndrome: Plan Patient has presented with non-ST elevation NE. Plan for coronary angiogram with possible percutaneous coronary intervention tomorrow. Risks and benefits of the procedure of been discussed with him. N.p.o. past midnight. Continue aspirin and anticoagulation. Echocardiogram ordered. Thank you for involving us with care of this patient. We will continue to follow. Please call with questions. Consult Attestations Medical Necessity Statement: Care expected to cross 2 midnights. Coding Level of Care Code Acute Code for [facility] Diagnoses Non-ST elevation NE (NSTEMI) I21.4 Chronic hypercapnic respiratory failure J96.12 CAD (coronary artery disease) I25.10 CHF (congestive heart failure) I50.32 Heart failure type: diastolic Heart failure chronicity: chronic JACINTO and COPD overlap syndrome G47.33; J44.9
[2023-01-18] MEDS: duloxetine 20 mg Capsule PO (18:38)
[2023-01-18 18:44] LABS: Anion Gap 15.3 (5-19); Blood Urea Nitrogen 26 mg/dL (8-23); Calcium 8.9 mg/dL (8.5-10.5); Carbon Dioxide 25 mmol/L (22-29); Chloride 98 mmol/L (98-107); Glomerular Filtration Rate 55.6 mL/min (90-130); Glucose 144 mg/dL (65-115); Osmolality Calculated 285 mOsm/kg (285-295); Potassium 4.3 mmol/L (3.5-5.1); Sodium 134 mmol/L (136-145)
[2023-01-18] MEDS: budesonide 0.5 mg/2 mL Neb INHALATION (20:25)
[2023-01-18] MEDS: ipratropium-albuterol 3 mL Neb INHALATION (20:25)
--- NOTE | 2023-01-18 21:10 | P.HP_ITS ---
Providers/Chief Complaint Admitting Physician: Traci Trevino MD Primary Care Provider: CARLOS MorleyP-C Chief Complaint: cp, back pain, left arm pain History of Present Illness Henry Perez is a 62 year old male Medications/Allergies Home Medications Medication Instructions Recorded Confirmed Last Taken Type aspirin 81 mg tablet,delayed 81 mg PO QAM 12/24/19 01/18/23 09/16/22 History release (Adult Low Dose Aspirin) cholecalciferol (vitamin D3) 125 10,000 unit PO QAM 03/02/21 01/18/23 09/16/22 History mcg (5,000 unit) capsule blood sugar diagnostic #50 ea 11/17/21 01/18/23 Unknown Rx omega-3 fatty acids 500 mg capsule 500 mg PO DAILY 12/28/21 01/18/23 09/16/22 History magnesium oxide 500 mg capsule 500 mg PO QAM 02/17/22 01/18/23 09/16/22 History mexiletine 200 mg capsule 200 mg PO Q8H #90 caps 02/17/22 01/18/23 09/16/22 Rx pen needle, diabetic 33 gauge x #100 ea 07/08/22 01/18/23 Unknown Rx albuterol sulfate 90 mcg/actuation 1 inh inhalation QID PRN shortness 10/26/22 01/18/23 Unknown Rx breath activated powder inhaler of breath or wheezing #1 ea isosorbide dinitrate 10 mg tablet 5 mg PO BID #180 tabs 11/01/22 01/18/23 Unkn own Rx atorvastatin 20 mg tablet 20 mg PO BEDTIME #90 tabs 12/20/22 01/18/23 Unknown Rx blood sugar diagnostic (OneTouch #100 ea 12/20/22 01/18/23 Unknown Rx Ultra Test strips) fenofibrate nanocrystallized 48 mg 48 mg PO DAILY #90 tabs 12/20/22 01/18/23 Unknown Rx tablet (Tricor) levothyroxine 175 mcg tablet 175 mcg PO DAILY #90 tabs 12/20/22 01/18/23 Unknown Rx semaglutide 1 mg/dose (2 mg/1.5 1 mg (0.75 mL) SUBCUT .weekly #3 mL 12/20/22 01/18/23 Unknown Rx mL) subcutaneous pen injector spironolactone 25 mg tablet 25 mg PO DAILY #90 tabs 12/20/22 01/18/23 Unknown Rx furosemide 20 mg tablet 40 mg PO BID #180 tabs 12/21/22 01/18/23 Unknown Rx albuterol sulfate 2.5 mg/3 mL 2.5 mg inhalation BID PRN 01/18/23 01/18/23 Unknown History (0.083 %) solution for nebulization Shortness Of Breath docusate sodium 100 mg capsule 100 mg PO DAILY PRN Constipation 01/18/23 01/18/23 Unknown History (Colace) duloxetine 20 mg capsule,delayed 20 mg PO BID 01/18/23 01/18/23 Unknown History release insulin detemir U-100 100 unit/mL 40 unit SUBCUT QAM 01/18/23 01/18/23 Unknown History (3 mL) subcutaneous pen (Levemir FlexPen) insulin lispro 100 unit/mL See Rx Instructions .Route .COMPLEX 01/18/23 01/18/23 Unknown History subcutaneous pen (Humalog KwikPen (U-100) Insulin) lisinopril 2.5 mg tablet 2.5 mg PO QAM 01/18/23 01/18/23 Unknown History nitroglycerin 0.4 mg sublingual 0.4 mg sublingual Q5M PRN Chest 01/18/23 01/18/23 Unknown History tablet (Nitrostat) Pain triamcinolone acetonide 0.1 % 1 applic topical BID PRN unknown 01/18/23 01/18/23 Unknown History topical ointment Allergies Allergy/AdvReac Type Severity Reaction Status Date / Time empagliflozin Allergy Intermediate Hives Verified 12/20/22 14:12 influenza virus vaccine ts Allergy Intermediate ALGY-Conges Verified 12/20/22 14:12 [id number] (36 mos,up) shun [From Fluarix] Penicillins Allergy Intermediate Hives Verified 12/20/22 14:12 glipizide Allergy ALGY-Rash Verified 12/20/22 14:12 olodaterol Allergy DIZZY/SHAKY Verified 01/18/23 09:45 [From Stiolto Respimat] tiotropium Allergy DIZZY/SHAKY Verified 01/18/23 09:45 [From Stiolto Respimat] PFSH Acute PFSH: Medical History (Updated 01/18/23 @ 14:48 by Ion Parks MD) Adult hypothyroidism CAD (coronary artery disease) CHF (congestive heart failure) CKD (chronic kidney disease), stage II COVID-19 vaccination declined Diabetes mellitus with hyperglycemia, with long-term current use of insulin Frequent PVCs Hypoxemia Mixed hyperlipidemia Obstructive sleep apnea Secondary polycythemia Slow transit constipation Vitamin D insufficiency Surgical History H/O angioplasty 2020 - [facility]. Velez [facility] History of coronary artery bypass graft 2 grafts in 2006 Family History Mother Chronic kidney disease (CKD) at age 85 CAD (coronary artery disease) Pace maker Hypertension Father Cancer Prostate Sister Hypertension Osteoporosis Other Diabetes Hyperlipidemia Denies family history of Clotting disorder Dementia Psychiatric illness Suicide Anesthesia complication Bleeding disorder Lung disease Stroke Social History Smoking and tobacco status: former smoker Second hand smoke exposure: No Smoking risk assessment/counseling performed?: No Alcohol intake: never Desire information about alcohol rehabilitation?: No Counseling given: No Substance/Drug Use: never Desire information about substance/drug rehabilitation?: No Counseling given: No Caregiver/support person: No Lives independently: Yes Household members: significant other Housing: House Marital status: Single service: No Current occupational status: unemployed Do you think of yourself as: Straight/Heterosexual Current gender identity: Male Vitals/I&O/Wt Last Vital Signs Temp 97.8 F 01/18/23 04:20 Pulse 75 01/18/23 20:39 Resp 21 H 01/18/23 20:39 BP 92/54 01/18/23 20:39 Pulse Ox 84 L 01/18/23 20:39 O2 Del Method Nasal Cannula 01/18/23 20:39 O2 Flow Rate 6 01/18/23 20:39 01/18/23 01/18/23 01/18/23 06:59 14:59 22:59 Intake Total 480 / 480 240 / 240 Output Total 850 / 850 650 / 650 Balance -370 / -370 -650 / -650 240 / -410 Weight last 48 hrs Weight 138.346 kg Data 01/18/23 00:50 01/18/23 17:54 Coding Level of Care Code Acute Code for Chg Fwd Diagnoses
[2023-01-18] MEDS: atorvastatin 40 mg Tablet PO (21:26)
[2023-01-18] MEDS: insulin lispro 100 unit/1 mL SUBCUT (21:27)
[2023-01-18 21:34] LABS: Glucose Point of Care 149 mg/dL (70-110)
[2023-01-19] VITALS (32 sets, daily range): BP systolic 96–119; BP diastolic 57–78; PULSE 60–94; RESP 13–33; TEMP 36.5; O2SAT 71–97
[2023-01-19] MEDS: ipratropium-albuterol 3 mL Neb INHALATION ×3 (01:45→13:22)
[2023-01-19] MEDS: diphenhydrAMINE 50 mg Capsule PO (05:08)
[2023-01-19] MEDS: sodium chloride 0.9% 1,000 ML 50 ML IV (05:09)
--- NOTE | 2023-01-19 05:44 | XACV_ITS ---
Exam Room: [facility] Ht: 185 cm Wt: 138 kg BSA: 2.73 m2 Gender: Male : 1960 Any Known Allergies: Other Exam Priority: Routine Procedure(s): Procedure Description: Diagnostic procedure Procedure Description: PCI procedure Procedure Description: Venous Graft Catheterization Procedure Description: Coronary IVUS Procedure Description: Drug Eluting Coronary Stent Procedure Description: PTCA Procedure Description: Miscellaneous Procedure Description: ACT Procedure Description: Coronary Angiography Diagnostic Cath Status: Urgent Diagnostic Findings * Circumflex has mild to moderate luminal irregularities. * Right Coronary Artery has subtotal occlusion of the distal vessel. * Ascending Aorta to RCA SVG graft: patent. * Ascending Aorta to Obtuse Marginal Branch Segment graft: Occluded. * Mid Left Anterior Descending: severe 90% stenosis, MARRY: 3 flow. * Left Main: 30% stenosis, MARRY: 3 flow. * Coronary angiography shows right dominance. PCI Status: Urgent PCI Indication: NSTE - ACS Interventional Findings * Procedure detail:We engaged left main artery with XB 3.5 guide catheter. IV heparin was administered to maintain anticoagulation. 0.014 run-through guidewire was used to cross the severely stenotic LAD segment and was put in distal vessel. We performed IVUS to confirm that left main artery is not severe. MLA of 6.3 mm2 was obtained that was not significant. We predilated the mid LAD stenosis with 3.0 x 12 mm semicompliant balloon. This was followed by placement of 3.5 x 18 mm resolute Ducnan drug-eluting stent. At this time patient had some chest discomfort. No EKG changes were seen. Injection showed possible dissection. IVUS confirmed distal edge dissection. We placed a second stent distally overlapping with the initial stent. This was 2.75 x 22 mm resolute Duncan drug-eluting stent. IVUS was performed again that confirmed with no further dissection. Patient's symptoms resolved. Final angiogram showed MARRY-3 flow, no residual stenosis and MARRY-3 flow. Patient left the Reinsurance Analyst in a stable condition. * Mid Left Anterior Descending to Mid Left Anterior Descendin% stenosis treated with a AB TREK 3.00X12 RX BALLOON, MDT R DUNCAN 3.5X18 YVETTE, and MDT R DUNCAN 2.75X22 YVETTE. 0% residual stenosis, MARRY: 3 flow. Conclusions 1. Severe mid LAD stenosis s/p successful revascularization with YVETTE x2. 2. Two coronary grafts visualized: SVG to RCA is patent. SVG to OM is occluded. 3. Patient has prior CABG. 4. Mid Left Anterior Descending to Mid Left Anterior Descending was treated with a Balloon, Drug Eluting Stent, and Drug Eluting Stent. Recommendations * Dual antiplatelet therapy with aspirin and Plavix for at least 1 year. * High intensity statin therapy. * Outpatient cardiology follow-up in 4 weeks. Interventional RX Recommendation: PCI w/o planned CABG Diagnostic RX Recommendation: PCI w/o planned CABG Anticoagulation: Heparin Pressures Phase:Rest AO : 95 / 63 ( 73 ) @ 7:29:00 AM 72 / 51 ( 59 ) @ 7:31:00 AM 78 / 58 ( 66 ) @ 7:41:00 AM 94 / 72 ( 83 ) @ 7:53:00 AM 114 / 83 ( 99 ) @ 7:58:00 AM 113 / 79 ( 93 ) @ 8:02:00 AM 119 / 91 ( 106 ) @ 8:06:00 AM 119 / 89 ( 102 ) @ 8:08:00 AM Clinical Evaluation EBL: 5mL-10mL Procedural Details Procedure Consent Obtained. Current Diagnosis : NSTEMI. Pre-Procedure Time Out. Identified patient by full name and date of as verbalized by the patient/guarantor. Does the consent match the physician's order: Yes. Accurate & Complete Informed Consent: Yes. Inpatient/Outpatient History & Physical on Chart: Yes. If H&P is completed, is and addenduem needed: No; If yes, is the addendum complete: N/A. Visualize and Verify Site with Patient/Guarantor: N/A. Relevant Radiology Images available: Yes. Pre-op teaching completed and patient verbalized understanding. The risks, benefits, and alternatives of sedation and/or procedure were discussed by physician. The patient agrees to continue. Procedure started. [facility] Clinical Fraility Score: 4: Vulnerable. Reinsurance Analyst Indications: ACS > 24 hours. Chest Pain Symptom Assessment: Typical Angina Symptoms. Correct patient, site and procedure confirmed by cath team. Current diagnosis: NSTEMI. PERRLA. Strong, equal hand beef specialist bilaterally. Lungs clear x 5 lobes. IV Site on Arrival: 18 gauge in the left anticubital. IV Fluids: 0.9% NaCl at KVO. 0 mL infused prior to director of cath lab. Oxygen started at 2liters/min via nasal canula. bilateral groins was prepped with chloroprep then draped in the usual sterile fashion. Physician arrived. Baseline sample Acquired. HR: 81 BPM. Physician scrubbed in. Immediate Pre-Procedure Time Out. Correct Patient: Yes; Correct Procedure: Yes; Correct Site: Yes; Correct Patient Position: Yes; Correct Supplies: Yes; Dried Flammable Prep: Yes; Blood Products Available: N/A;. Lidocaine 1% infiltrated to the right radial. Arterial access obtained. A 5 libyan TIG catheter in over wire. Multiple views taken of left coronary artery. Catheter redirected to the RCA. Multiple views taken of right coronary artery. SVG's to RCA visualized and patent. Patient placed on an oxymask. SVG to OM occluded. Catheter removed over the exchange wire. 6 libyan XB 3 guide catheter was inserted over the wire. Runthrough guidewire was advanced through the guide catheter to lesion in the LM. IVUS catheter inserted and advanced OTW. IVUS measurements obtained. IVUS catheter out OTW. ACT drawn. Results out of range seconds. Therapeutic limits - pre-heparin administration 90-150 seconds and monitoring heparin during a vascular procedure >250 seconds. Inflation number : 1 A AB TREK 3.00X12 RX BALLOON was prepped and advanced across the Mid LAD , then inflated to 10 MICHELLE for 0:18 seconds. Inflation number: 2 The AB TREK 3.00X12 RX BALLOON was reinflated across the Mid LAD, to 12 MICHELLE for 0:18 seconds. Balloon out. Inflation Number : 3 A MDT R DUNCAN 3.5X18 YVETTE -Lot Number# _[id number] EXP: 07/02/2025 was prepped and advanced across the Mid LAD. The stent was deployed at 12 MICHELLE for 0:23 seconds. Stent balloon out over wire. IVUS catheter inserted and advanced OTW. IVUS measurements obtained. IVUS catheter out OTW. Inflation Number : 4 A MDT R DUNCAN 2.75X22 YVETTE -Lot Number# _[id number] EXP: 10/08/2024 was prepped and advanced across the Mid LAD. The stent was deployed at 12 MICHELLE for 0:20 seconds. Stent balloon out over wire. Results checked. IVUS catheter inserted and advanced OTW. IVUS measurements obtained. IVUS catheter out OTW. Results checked. Wire out. ACT drawn. Results 361 seconds. Therapeutic limits - pre-heparin administration 90-150 seconds and monitoring heparin during a vascular procedure >250 seconds. Guide catheter out. A TR Band was successful obtaining hemostatsis at the Right Radial artery insertion site. Post Procedure: Pulses reassessed and unchanged. PERRLA. Strong, equal hand beef specialist bilaterally. No VTE prophylaxis required. Medication's Wasted: Lidocaine 1% = 1 mL. Medication's Wasted: Nitro = 49.8 mg. Total IV fluids: 70 mL. Complications: None. Estimated blood loss: 5mL-10mL. Responsiveness - Normal response to verbal stimuli; alert and oriented, PERRLA. Airway - Unaffected, no intervention required; spontaneous ventilation. Circulation: W/N/L, pulses unchanged. Vital chart was stopped. Nausea/Vomiting: No. Procedure completed. Patient transferred by bed to 1st floor. Access Site Site: Right Radial artery Sheath Size: 6 Fr Hemostasis Method: TR Band Hemostasis Success: Successful Procedure Medications Start: 6:22 AM Stop: 6:22 AM Medication: Versed Amount: 1 mg Route: I.V. Start: 6:27 AM Stop: 6:27 AM Medication: Nitrogylcerin Amount: 200 mcg Route: I.A. Start: 6:29 AM Stop: 6:29 AM Medication: Heparin Amount: 5000 units Route: I.V. Start: 6:38 AM Stop: 6:38 AM Medication: Heparin Amount: 6000 units Route: I.V. Start: 6:54 AM Stop: 6:54 AM Medication: Heparin Amount: 1000 units Route: I.V. Start: 7:03 AM Stop: 7:03 AM Medication: Versed Amount: 1 mg Route: I.V. Start: 7:06 AM Stop: 7:06 AM Medication: Nitrogylcerin Amount: 10 mcg/min Route: I.V. drip Start: 7:12 AM Stop: 7:12 AM Medication: Brilinta Amount: 180 mg Route: P.O. Start: 7:15 AM Stop: 7:15 AM Medication: Aggrastat 12.5 mg/250 mL Amount: 70 ml Route: I.V. bolus Start: 7:15 AM Stop: 7:15 AM Medication: Aggrastat 12.5 mg/250 mL Amount: 25.2 ml/hr Route: I.V. tato Richardson, the attending physician, have reviewed and verified all procedure medications. Yes, all medications given per verbal order History/Risk Factors Hypertension: No Dyslipidemia: Yes Peripheral Arterial Disease (PAD): Yes Myocardial Infarction (CT): No Obesity: No Renal Disease: Yes Tobacco Use: Former Prior Interventions PCI: No CABG: Yes Valve Surgery: No Report Signatures Finalized by Rich Ceron MD on 01/30/2023 08:50 PM
[2023-01-19] MEDS: aspirin 81 mg EC Tablet PO (05:49)
[2023-01-19 06:10] LABS: Basophils # 0.1 10^3/uL (0.0-0.1); Basophils % 0.6 %; Eosinophils # 0.1 10^3/uL (0.0-0.8); Eosinophils % 1.1 %; Hematocrit 48.9 % (42.0-52.0); Hemoglobin 15.1 g/dL (11.7-16.6); Lymphocytes # 1.6 10^3/uL (0.8-4.8); Lymphocytes % 17.4 %; Mean Corpuscular HGB Conc 30.9 g/dL (30.0-36.0); Mean Corpuscular Hemoglobin 29.3 pg (28.0-34.0); Mean Platelet Volume 10.8 fL (7.4-10.4); Monocytes % 10.7 %; Neutrophils # 6.28 10^3/uL (1.8-7.7); Neutrophils % 69.8 %; Nucleated Red Blood Cells % 0 %; Platelet Count 238 10^3/cmm (130-400); Red Blood Count 5.15 10^6/uL (4.1-5.3); Red Cell Distribution Width 18.2 % (12.1-15.1)
[2023-01-19 06:26] LABS: Estmated Average Glucose 174; Hemoglobin A1C 7.7 % (4.0-6.0)
[2023-01-19 06:35] LABS: Glucose Point of Care 127 mg/dL (70-110)
--- NOTE | 2023-01-19 07:18 | W.PM.OPSUD ---
Surgery/Procedure H&P Update DATE OF PROCEDURE: January 19, 2023 DATE H&P PERFORMED: 01/18/23 H&P UPDATE INFORMATION: I have reviewed H&P completed within last 30 days, I have examined patient prior to procedure and No changes to prior documentation PREOP DIAGNOSIS: NSTEMI PRIMARY INDICATION FOR PROCEDURE: NSTEMI PLANNED PROCEDURE: Left heart cath with possible percutaneous coronary intervention PATIENT REASSESSED PRIOR TO SEDATION, WITH NO CHANGE NOTED: Yes PHYSICAL EXAM: alert, oriented x 3, clear to auscultation bilaterally and regular rate & rhythm AIRWAY EVAL/ANESTHESIA PLAN: normal airway, ASA IV, Local Anesthesia, Risks, benefits & alternatives of sedation and/or procedure discussed and Patient agrees to continue as planned ADDITIONAL INFORMATION: Moderate sedation
--- NOTE | 2023-01-19 07:25 | PM.PN ---
Subjective Subjective: Patient is doing well. He had we will severe mid LAD stenosis. Moderate left main artery stenosis which was confirmed with IVUS to be moderate. He also had patent SVG to RCA. SVG to OM is occluded. He underwent successful revascularization of mid LAD with 2 stents. Vitals/I&O/Wt Last Vital Signs Temp 97.8 F 01/18/23 04:20 Pulse 60 01/19/23 05:43 Resp 13 01/19/23 04:10 BP 102/59 01/19/23 04:10 Pulse Ox 92 01/19/23 04:10 O2 Del Method BiPAP 01/19/23 04:10 O2 Flow Rate 6 01/18/23 20:39 FiO2 50 01/19/23 01:45 01/18/23 01/19/23 01/19/23 22:59 06:59 14:59 Intake Total 360 / 360 1000 / 1360 Output Total 600 / 1250 475 / 1725 Balance -240 / -890 525 / -365 Weight last 48 hrs Weight 305 lb Physical Exam Narrative: GENERAL: Patient is alert, awake and oriented x3. [] NECK: No jugular vein distension. [] HEENT: No cyanosis. No icterus. No pallor. [] HEART: Regular S1 and S2. No murmur, rub or gallop. [] LUNGS: Diminished air entry bilaterally CENTRAL NERVOUS SYSTEM: Grossly nonfocal. [] EXTREMITIES: Lower extremities with 1+ edema bilaterally. Data 01/19/23 05:33 01/18/23 17:54 A&P Assessment and plan (1) Non-ST elevation NV (NSTEMI): (2) Chronic hypercapnic respiratory failure: (3) CAD (coronary artery disease): (4) CHF (congestive heart failure): Qualifiers: Heart failure type: diastolic Heart failure chronicity: chronic Qualified Code(s): I50.32 - Chronic diastolic (congestive) heart failure (5) JACITNO and COPD overlap syndrome: Plan Patient underwent successful patient underwent successful revascularization of mid LAD with YVETTE x2. He had chest discomfort after stent placement. He was put on nitro drip pain has subsided. Will monitor closely. Continue aspirin and Brilinta for at least 1 year. Echo shows mildly reduced LV systolic function however is a very limited quality. Thank you for involving us with care of this patient. We will continue to follow. Please call with questions. Attestations Medical Necessity Statement*: Care expected to cross 2 midnights. Coding Level of Care Code Acute Code for Chg Fwd Diagnoses Non-ST elevation NV (NSTEMI) I21.4 Chronic hypercapnic respiratory failure J96.12 CAD (coronary artery disease) I25.10 CHF (congestive heart failure) I50.32 Heart failure type: diastolic Heart failure chronicity: chronic JACINTO and COPD overlap syndrome G47.33; J44.9
[2023-01-19] MEDS: tirofiban 5 MG/100 ML PREMIX 24.9 MG IV (07:55)
[2023-01-19] MEDS: sodium chloride 0.9% 1,000 ML 75 ML IV (07:56)
[2023-01-19] MEDS: budesonide 0.5 mg/2 mL Neb INHALATION (08:43)
[2023-01-19 10:50] LABS: Alanine Aminotransferase 14 U/L (0-41); Albumin Level 3.4 g/dL (3.5-5.2); Alkaline Phosphatase 57 U/L (40-130); Anion Gap 13.2 (5-19); Aspartate Amino Transferase 18 U/L (0-40); Blood Urea Nitrogen 23 mg/dL (8-23); Calcium 8.7 mg/dL (8.5-10.5); Carbon Dioxide 26 mmol/L (22-29); Chloride 97 mmol/L (98-107); Chol HDL Ratio 2.81 mg/dL (1.0-5.00); Cholesterol 101 mg/dL (0-200); Globulin 2.6 g/dL (1.3-4.6); Glomerular Filtration Rate 67.4 mL/min (90-130); Glucose 213 mg/dL (65-115); HDL Cholesterol 36 mg/dL (60-100); LDL Cholesterol Calculated 47 mg/dL (50-129); LDL HDL Ratio 1.31 RATIO (0.00-3.22); Osmolality Calculated 284 mOsm/kg (285-295); Phosphorus 3.7 mg/dL (2.5-4.5); Potassium 4.2 mmol/L (3.5-5.1); Sodium 132 mmol/L (136-145); Total Bilirubin 0.6 mg/dL (0.15-1.2); Triglycerides 91 mg/dL (0-150)
[2023-01-19] MEDS: docusate sodium 100 mg Capsule PO (10:56)
[2023-01-19] MEDS: cholecalciferol (vitamin D3) 5,000 unit Tablet 10000 UNIT PO (10:56)
[2023-01-19] MEDS: fenofibrate 48 mg Tablet PO (10:57)
[2023-01-19] MEDS: levothyroxine 175 mcg Tablet PO (10:58)
[2023-01-19] MEDS: duloxetine 20 mg Capsule PO (10:58)
[2023-01-19] MEDS: insulin glargine 100 units/1 mL 40 UNIT SUBCUT (10:59)
[2023-01-19] MEDS: magnesium oxide 400 mg tablet PO (10:59)
[2023-01-19] MEDS: metoprolol tartrate 25 mg Tablet 12.5 MG PO (10:59)
[2023-01-19] MEDS: pantoprazole DR 40 mg Tablet PO (11:00)
[2023-01-19 11:20] LABS: ABG PCO2 46.9 mmHg (35-45); ABG PH Result 7.41 (7.35-7.45); Alveolar-Arterial Oxygen Gradi 29.1 mmHg (5-10); Arterial Blood Gas Hematocrit 44.2 % (42-52); Base Excess ABG 3.8 mmol/L (-2.0-2.0); Blood Gas Sample Site Brachial, right; Blood Gas Sample Type Arterial; Carboxyhemoglobin 1.8 %THgb (0.4-20.1); HCO3 ABG 29.4 mmol/L (22-26); HGB O2 Sat 93.3 % (95-100); Ionized Calcium Level - ABG 1.2 mmol/L (1.1-1.4); Methemoglobin 0.5 % (0.4-1.5); Oxygen Device BIPAP; Oxygen Saturation ABG 95.5; PO2 ABG 72.1 mmHg (80.0-100.0); Total Hemoglobin 14.4 g/dL (14-18)
[2023-01-19 11:43] LABS: Glucose Point of Care 225 mg/dL (70-110)
[2023-01-19] MEDS: insulin lispro 100 unit/1 mL SUBCUT (12:29)
--- NOTE | 2023-01-19 15:21 | P.PN_ITS ---
Subjective Subjective: No acute events overnight. Patient has remained chest pain-free. Today morning patient underwent cardiac angiogram and underwent PCI to LAD.(Complete report not available to me currently.) Postprocedure patient remained on BiPAP for 2 hours as he was finding it difficult to remain awake. During that day. ABG was done which showed controlled hypoxia and hypercapnia at patient's baseline. After that patient has been awake on 4 L of oxygen supplementation, saturating over 88% without any difficulty in breathing. He states he is breathing at his baseline. Denies any nausea vomiting, headache. States he is feeling a lot better postprocedure. Documented urine output in last 24 hours 1725 cc. Overall patient is 622 cc negative Vitals/I&O/Wt Last Vital Signs Temp 97.7 F 01/19/23 07:45 Pulse 79 01/19/23 13:25 Resp 18 01/19/23 13:25 BP 115/57 01/19/23 12:00 Pulse Ox 91 01/19/23 13:25 O2 Del Method Nasal Cannula 01/19/23 13:25 O2 Flow Rate 4 01/19/23 13:25 FiO2 50 01/19/23 08:00 01/19/23 01/19/23 01/19/23 06:59 14:59 22:59 Intake Total 1000 / 1360 692.5 / 692.5 Output Total 475 / 1725 580 / 580 Balance 525 / -365 112.5 / 112.5 Weight last 48 hrs Weight 143.562 kg Weight 138.346 kg Physical Exam Narrative: General: No acute distress, AO x3, on nasal cannula oxygen supplementation HEENT: PERRLA, pupils bilaterally equal and reactive Chest: Bronchial breath sounds all over lung wong with occasional rhonchi and coarse crackles present all over lung wong CVS: S1-S2 regular, soft pansystolic murmur present at apex 2/6, pansystolic murmur present at fourth intercostal left retrosternal 2/6, no tachycardia, no gallops, no rubs Abdomen: Soft, nontender, no organomegaly, bowel sounds present Neuro: No focal deficits, no facial deformity, AO x3, power 5/5 in all limbs Data 01/19/23 05:33 01/19/23 10:20 A&P Assessment and plan (1) Non-ST elevation PR (NSTEMI): Appreciate cardiology recommendations. Post PCI to LAD. Continue with aspirin, Brilinta, statin. Appreciate A1c, lipid panel and echocardiogram. (2) CAD (coronary artery disease): History of post CABG. (3) CKD (chronic kidney disease), stage II: Baseline creatinine more recently since earlier this year has been from 1.3-1.4. Creatinine down to 1.1 today. Check urine lites, urinalysis, urine creatinine, urine eosinophils. Medical reconciliation done for nephrotoxic drugs. Continue to hold off on spironolactone, ANUPAMA inhibitors for now given need for possible cardiac angiogram. Gentle IV hydration with normal saline at 50 cc/h for 8 hours postprocedure. (4) CHF (congestive heart failure): Last echocardiogram from 2020 shows a normal EF of 55% with grade 1 diastolic dysfunction, moderate aortic valve calcification. History of diastolic heart failure. Compensated for now. Qualifiers: Heart failure type: diastolic Heart failure chronicity: chronic Qualified Code(s): I50.32 - Chronic diastolic (congestive) heart failure (5) Acute and chronic respiratory failure: Requiring 3 L at baseline at rest and 6 L on exertion. Most likely in setting of congestive heart failure, COPD and obstructive sleep apnea. Patient has qualified for BiPAP as an outpatient but stated does not have BiPAP currently at home. Tolerated BiPAP nightly very well during hospitalization. Will consult case management. Gentle IV hydration as above while watching for fluid overload. Hold off on home dose of Lasix. Start on DuoNebs every 6 hour, budesonide twice daily. Oxygen supplementation keeping saturation over 88%. (6) Chronic hypercapnic respiratory failure: (7) JACINTO and COPD overlap syndrome: (8) Diabetes mellitus with hyperglycemia, with long-term current use of insulin: A1c 7.7. Continue with home dose of glargine at 40 units daily. Start on insulin sliding scale at moderate dose protocol before meals and at bedtime. Cardiac carb consistent diet. Qualifiers: Diabetes mellitus type: type 2 Qualified Code(s): E11.65 - Type 2 diabetes mellitus with hyperglycemia; Z79.4 - nursing home (current) use of insulin Plan Full code. Cardiac carb consistent diet. Full dose Lovenox will suffice as DVT prophylaxis. Protonix for PUD prophylaxis. Attestations Medical Necessity Statement*: Requires further hospitalization for post PCI care in a patient admitted with non-ST elevation PR and who has baseline chronic respiratory failure Diagnoses Non-ST elevation PR (NSTEMI) I21.4 CAD (coronary artery disease) I25.10 CKD (chronic kidney disease), stage II N18.2 CHF (congestive heart failure) I50.32 Heart failure type: diastolic Heart failure chronicity: chronic Acute and chronic respiratory failure J96.20 Chronic hypercapnic respiratory failure J96.12 JACINTO and COPD overlap syndrome G47.33; J44.9 Diabetes mellitus with hyperglycemia, with long-term current use of insulin E11.65; Z79.4 Diabetes mellitus type: type 2
--- NOTE | 2023-01-19 15:45 | ECG_ITS ---
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 Measurements Intervals [place] Rate: 77 P: 72 LA: 244 QRS: 232 QRSD: 116 T: 34 QT: 370 QTc: 421 Interpretive Statements SINUS RHYTHM WITH FIRST DEGREE AV BLOCK INCOMPLETE RIGHT BUNDLE BRANCH BLOCK [90+ ms QRS DURATION, TERMINAL R IN V1/V2, 40+ ms S IN I/aVL/V4/V5/V6] RIGHT VENTRICULAR HYPERTROPHY [SOME/ALL OF: PROMINENT R IN V1, LATE TRANSITION, RAD, MARILEE, SSS] POSSIBLE ANTERIOR MYOCARDIAL INFARCTION , OF INDETERMINATE AGE [30 ms Q WAVE IN V3/V4, OR R < 0.2 mV IN V4] Compared to ECG 01/18/2023 08:13:44 Incomplete right bundle-branch block now present Atrial abnormality now present Right ventricular hypertrophy now present Right-axis deviation no longer present Right bundle-branch block no longer present Myocardial infarct finding still present Electronically Signed On 01-19-2023 19:46:23 CDT by Rich Ceron M.D. [id number]
--- NOTE | 2023-01-19 15:54 | PC.NURSE ---
Patient complaining of CP. Obtained 12 lead EKg. Picture of EKG sent to Dr. Parks. Dr. Ceron in unit to see patient.
--- NOTE | 2023-01-19 16:00 | PC.NURSE ---
Dr. Ceron to see patient. 12 lead given to Will plan to take patient to the agriculture laborer
[2023-01-19] MEDS: morphine 4 mg/mL SDV 1 mL 2 MG IVP (16:15)
[2023-01-19] MEDS: lidocaine 2% viscous 15 ML, aluminum-mag hydrox-simethicon 30 ML, sucralfate oral liq 1 GM PO (16:23)
[2023-01-19 16:28] LABS: Glucose Point of Care 113 mg/dL (70-110)
--- NOTE | 2023-01-19 16:40 | PC.NURSE ---
Addendum entered by Terrie Martinez RN 01/19/23 17:42: This note was for the events that were at 1600. Original Note: Patient's assessment is unchanged other than chest pain that radiates to his back and down his arm.
--- NOTE | 2023-01-19 16:56 | XACV_ITS ---
Exam Room: [facility] Ht: 185 cm Wt: 138 kg BSA: 2.73 m2 Gender: Male : 1960 Any Known Allergies: Other Exam Priority: Routine Procedure(s): Procedure Description: Diagnostic procedure Procedure Description: Coronary Angiography Procedure Description: Balloon angioplasty Diagnostic Cath Status: Emergency Interventional Findings * INDICATION: Patient had PCI of mid LAD with 2 stents earlier today. About 8 to 9 hours post PCI, patient complained of chest pain. No ST elevations were seen on EKG. However given severe chest discomfort, Route Sales Specialist was activated. However patient went into ventricular fibrillation cardiac arrest prior to moving him to cath laboratory technician. Prolonged CPR was performed. Eventually we achieved ROSC. Patient was emergently transferred to cath laboratory technician. * Mid Left Anterior Descendin % stenosis treated with a AB TREK 2.50X12 RX BALLOON. , MARRY:0 flow. * Procedure detail: Patient became progressively hypotensive and bradycardic during the transfer to cath laboratory technician. We emergently engaged the left main artery with XB 3.5 guide catheter. LAD was found to be totally occluded. We performed balloon angioplasty of LAD stents with 2.5 x 12 mm semicompliant balloon. Patient went into PEA and CPR was resumed. Flow was not restored in LAD. After several cycles of CPR, patient's family decided to stop further attempts at resuscitation. Patient at 1752. Conclusions 1. Totally occluded LAD stents. 2. Attempts at revascularization with balloon angioplasty 3. could not restore flow. 4. Patient 5. went into PEA/asystole. 6. Family decided to 7. stop further attempts at resuscitation. 8. Patient at 1752.. 9. Mid Left Anterior Descending was treated with a Balloon. Procedural Details Pre-Procedure Time Out. Identified patient by full name and date of as verbalized by the patient/guarantor. Does the consent match the physician's order: N/A Emergent. Accurate & Complete Informed Consent: N/A Emergent. Inpatient/Outpatient History & Physical on Chart: N/A Emergent. If H&P is completed, is and addenduem needed: N/A Emergent; If yes, is the addendum complete: N/A Emergent. Visualize and Verify Site with Patient/Guarantor: N/A. Relevant Radiology Images available: N/A Emergent; Informed Consent not obtained due to time critical life threat. Pre-op teaching completed and patient verbalized understanding. The risks, benefits, and alternatives of sedation and/or procedure were discussed by physician. The patient agrees to continue. Procedure started. Patient arrived to cath laboratory technician on a ventilator and will be managed by respiratiory. Baseline sample Acquired. HR: 41 BPM. Physician notified. bilateral groins was prepped with chloroprep then draped in the usual sterile fashion. Physician arrived. Physician scrubbed in. Immediate Pre-Procedure Time Out. Correct Patient: N/A Emergent; Correct Procedure: N/A Emergent; Correct Site: N/A Emergent; Correct Patient Position: N/A Emergent; Correct Supplies: N/A Emergent; Informed Consent not obtained due to time critical life threat; Dried Flammable Prep: N/A Emergent; Blood Products Available: N/A Emergent;. Lidocaine 1% infiltrated to the right groin. Arterial access obtained with micropuncture set. 6 greenlandic XB 3.5 guide catheter was inserted over the wire. external pacing- rate of 80 . 74 miliamps. Runthrough guidewire was advanced through the guide catheter to lesion in the mid LAD. Inflation number : 1 A AB TREK 2.50X12 RX BALLOON was prepped and advanced across the Mid LAD , then inflated to 12 MICHELLE for 0:05 seconds. Inflation number: 2 The AB TREK 2.50X12 RX BALLOON was reinflated across the Mid LAD, to 12 MICHELLE for 0:03 seconds. Inflation number: 3 The AB TREK 2.50X12 RX BALLOON was reinflated across the Mid LAD, to 12 MICHELLE for 0:03 seconds. CPR started. Balloon out. wire out. code called. team arrived. Guide catheter out. Side port of sheath attached to Normal Saline flush at KVO to maintain patency. pulse check. pusle check. no pulse. Code called by Dr Parks. Vital chart was stopped. Per house sup. Pt to be transfered by bed to CPRU to await family. Access Site Site: Right Femoral artery Sheath Size: 6 Fr Hemostasis Success: Unsuccessful Procedure Medications Start: 5:36 PM Stop: 5:36 PM Medication: Atropine Amount: 1 mg Route: I.V. Start: 5:40 PM Stop: 5:40 PM Medication: Epinephrine Amount: 1 mg Route: I.V. Start: 5:46 PM Stop: 5:46 PM Medication: Epinephrine Amount: 1 mg Route: I.V. Start: 5:43 PM Stop: 5:43 PM Medication: Epinephrine Amount: 1 mg Route: I.V. Start: 5:50 PM Stop: 5:50 PM Medication: Epinephrine Amount: 1 mg Route: I.V. I, the attending physician, have reviewed and verified all procedure medications. Yes, all medications given per verbal order History/Risk Factors Hypertension: No Dyslipidemia: Yes Peripheral Arterial Disease (PAD): Yes Myocardial Infarction (PA): No Obesity: No Renal Disease: Yes Tobacco Use: Former Prior Interventions PCI: No CABG: Yes Valve Surgery: No Report Signatures Finalized by Rich Ceron MD on 01/30/2023 09:05 PM
[2023-01-19 17:15] LABS: Troponin(5th) Baseline 169 ng/L (0-15)
[2023-01-19 17:16] LABS: NT Pro B Type Natriuretic Pept 1597 pg/mL (0-125)
--- NOTE | 2023-01-19 17:40 | PC.NURSE ---
Patient complained of chest pain at approximately 1630. Patient reported it to the Julian santana, who immediately told selling underwriter. Vice President Consulting Services went into the room and noticed what appeared to be ST depression on his monitor and he was reporting 10/10 chest pain radiating to back and left arm. EKG was done and shown to Dr. Ceron and Dr. Parks. Note that selling underwriter is not patient's primary nurse. CLAUDIA Falcon, restarted patient on nitro and it was increased to 60 by selling underwriter. Another EKG was repeated approximately 5 min later and shown to Dr. Ceron. Vfib noted on the monitor at 1641. Chest compressions started immediately. Terrie Martinez RN and Aileen Hutchinson RN in the room at that time.
[2023-01-19 17:51] LABS: Alanine Aminotransferase 14 U/L (0-41); Albumin Level 3.7 g/dL (3.5-5.2); Alkaline Phosphatase 58 U/L (40-130); Aspartate Amino Transferase 18 U/L (0-40); Blood Urea Nitrogen 21 mg/dL (8-23); Calcium 9.1 mg/dL (8.5-10.5); Carbon Dioxide 24 mmol/L (22-29); Chloride 98 mmol/L (98-107); Globulin 2.5 g/dL (1.3-4.6); Glucose 94 mg/dL (65-115); Osmolality Calculated 279 mOsm/kg (285-295); Sodium 133 mmol/L (136-145); Total Bilirubin 0.5 mg/dL (0.15-1.2); Total Protein 6.2 g/dL (6.6-8.7)
[2023-01-19 18:04] LABS: Anion Gap 15.3 (5-19); Potassium 4.3 mmol/L (3.5-5.1)
--- NOTE | 2023-01-19 18:14 | P.DES_ITS ---
Discharge Providers DDS Date of Admission: 01/18/23 03:50 Date Summary Completed: 01/19/23 Attending Provider at Admission: Traci Trevino MD Time of : 17:52 Attending Provider at Discharge: Ion Parks MD Consults: Cardiology: Dr. Ceron Primary Care Provider: MIRANDA Morley Diagnoses Hospital Diagnoses (1) Non-ST elevation NV (NSTEMI): (2) CAD (coronary artery disease): (3) CKD (chronic kidney disease), stage II: (4) CHF (congestive heart failure): Qualifiers: Heart failure chronicity: chronic Heart failure type: diastolic Qualified Code(s): I50.32 - Chronic diastolic (congestive) heart failure (5) Acute and chronic respiratory failure: (6) Chronic hypercapnic respiratory failure: (7) JACINTO and COPD overlap syndrome: (8) Diabetes mellitus with hyperglycemia, with long-term current use of insulin: Qualifiers: Diabetes mellitus type: type 2 Qualified Code(s): E11.65 - Type 2 diabetes mellitus with hyperglycemia; Z79.4 - senior care (current) use of insulin Reason for Visit Reason for Visit cp, back pain, left arm pain Brief History: History as per HPI: Henry Perez is a 62 year old male with h/o CAD s/p CABG 2006 and PCI 2020, CHF, COPD, chronic hypercarbic respiratory failure on 3-4L oxygen at home presented with c/o left sided chest pain, radiating down the left arm? and SOB. Chest pain resolved with 1 dose of morphine in ER. Denies any nausea, vomiting, cough, dizziness or urinary complaints. He has multiple admissions for CHF exacerbation in the past. last 2D ECHO done was in 2020 showed EF 55%, mild septal bounce secondary to interventricular conduction delay, grade 1 DD, mild aortic valve calcification. Summary Date and Time of Date of : 01/19/23 Time of : 17:52 Summary Summary: Patient is a 62-year-old gentleman with past surgical history of CAD post CABG with chronic hypoxic respiratory failure baseline on 4 L at rest and 6 L on exertion presented with non-ST elevation NV on 01/18. Given his last cardiac angiogram from 2020 which showed hemodynamically insignificant lesion based on IFR cardiology was consulted. During hospitalization patient remained chest pain-free. He was started on IV fluids after which his creatinine improved. He underwent cardiac angiogram on 01/19 and he underwent PCI to LAD. Patient tolerated the procedure well and was doing very well till 01/19 afternoon. At around 4 PM he started complaining of chest pain and he was being transferred to [facility] Machine Operator for repeat cardiac angiogram when he had a V-fib cardiac arrest and CODE BLUE was called. At first CODE BLUE he achieved ROSC after 41 minutes and sustained a sinus rhythm and he was moved to cardiac [facility] Machine Operator where he was found to have in-stent restenosis. While balloon angioplasty was done patient had a repeat PEA cardiac arrest at 1740 hours. Repeat c CODE BLUE was started. During all of this multiple goals of care discussions were done with patient's son Mr. Orourke over the phone and life partner at bedside. As at the second CODE BLUE even after 10 minutes patient did not achieve ROSC goals of care discussions were done again and family decided to hold off on any further chest compressions. Patient was declared at 1752 hrs. Additional Data Confirmation of as documented by pronouncing clinician: no pulse, no respirations and no heart sounds Family: at bedside Additional persons at bedside: nursing staff and supervisor refractory products Attending/PCP notified?: I am attending Was code activated?: Yes Autopsy requested?: No Advance directives?: No Hospice patient?: No Discharge Plan Discharge Patient Disposition: Condition: Stable Prescriptions: No Action cholecalciferol (vitamin D3) 125 mcg (5,000 unit) capsule 10,000 unit PO QAM aspirin [Adult Low Dose Aspirin] 81 mg tablet,delayed release (DR/EC) 81 mg PO QAM (DME) blood sugar diagnostic Strip See Rx Instructions .ROUTE .MEDSUPPLY Qty: 50 5RF Rx Instructions: one time day magnesium oxide 500 mg capsule 500 mg PO QAM mexiletine 200 mg capsule 200 mg PO Q8H Qty: 90 0RF (DME) pen needle, diabetic 33 gauge x 5/32 needle See Rx Instructions .ROUTE .MEDSUPPLY Qty: 100 5RF Rx Instructions: 1 times day albuterol sulfate 90 mcg/actuation aerosol powdr breath activated 1 inh inhalation QID PRN (Reason: shortness of breath or wheezing) Qty: 1 3RF atorvastatin 20 mg tablet 20 mg PO BEDTIME Qty: 90 0RF (DME) OneTouch Ultra Test Strip See Rx Instructions .Route Qty: 100 5RF Rx Instructions: 3 times day as needed fenofibrate nanocrystallized [Tricor] 48 mg tablet 48 mg PO DAILY Qty: 90 0RF levothyroxine 175 mcg tablet 175 mcg PO DAILY Qty: 90 0RF semaglutide 1 mg/dose (2 mg/1.5 mL) pen injector 1 mg SUBCUT .weekly Qty: 3 2RF Rx Instructions: on Wednesdays spironolactone 25 mg tablet 25 mg PO DAILY Qty: 90 0RF omega-3 fatty acids 500 mg capsule 500 mg PO DAILY isosorbide dinitrate 10 mg tablet 5 mg PO BID Qty: 180 1RF Rx Instructions: allow nitrate-free interval of 12-14 hrs per 24-hr period furosemide 20 mg tablet 40 mg PO BID Qty: 180 3RF albuterol sulfate 2.5 mg /3 mL (0.083 %) solution for nebulization 2.5 mg inhalation BID PRN (Reason: Shortness Of Breath) Colace 100 mg Capsule 100 mg PO DAILY PRN (Reason: Constipation) lisinopril 2.5 mg tablet 2.5 mg PO QAM Levemir FlexPen 100 unit/mL (3 mL) insulin pen 40 unit SUBCUT QAM triamcinolone acetonide 0.1 % ointment 1 applic TOPICAL BID PRN (Reason: unknown) Nitrostat 0.4 mg Tablet, Sublingual 0.4 mg SUBLINGUAL Q5M PRN (Reason: Chest Pain) Rx Instructions: do not exceed 3 doses per episode Humalog KwikPen Insulin 100 unit/mL insulin pen See Rx Instructions .ROUTE .COMPLEX Rx Instructions: sliding scale subcutaneously three times a day as needed duloxetine 20 mg capsule,delayed release(DR/EC) 20 mg PO BID Rx Instructions: MEDICATION ON HOLD PER PT NOT TAKEN IN A MONTH 01/18/23 Referrals: Catarina Olsen FNP-C [Primary Care Provider] - Madhavi Adame FNP [Nurse Practitioner] - 01/27/23 9:45 am (Please follow-up with Madhavi Adame on , January 27 at 9:45A.M. If you have any questions or need to reschedule. Please call ) Patient Instructions: Opioid Safety Probable Cause of Probable cause of : Non-ST elevation myocardial infarction (NSTEMI) DS Attestations Time Spent in /Discharge Care*: critical care time (Multiple code blues, multiple goals of care discussion with family, managing drips) Critical Care Time (min): 90 Quality - AMI: AMI present?: Yes Quality - Stroke: CVA present?: No Quality - VTE: VTE present?: No Coding Level of Care Code Critical Care >/= 30 minutes Critical care time (in minutes): 90 The high probability of a clinically significant, sudden or life threatening deterioration, as referenced in this documentation, required my full and direct attention, intervention and personal management. The critical care time shown is in addition to time spent performing any reported separately billable procedures and includes the following: [x] Data and vital sign review and interpretation [x ] Patient assessment, examination and intervention [x] Medication orders and management [x] Patient/Family updates as able [x] Care Coordination and Documentation. Diagnoses Non-ST elevation NV (NSTEMI) I21.4 CAD (coronary artery disease) I25.10 CKD (chronic kidney disease), stage II N18.2 CHF (congestive heart failure) I50.32 Heart failure chronicity: chronic Heart failure type: diastolic Acute and chronic respiratory failure J96.20 Chronic hypercapnic respiratory failure J96.12 JACINTO and COPD overlap syndrome G47.33; J44.9 Diabetes mellitus with hyperglycemia, with long-term current use of insulin E11.65; Z79.4 Diabetes mellitus type: type 2
--- NOTE | 2023-01-19 18:14 | P.PNCC_ITS ---
Critical Care Event Note Patient underwent cardiac angiogram and PCI to LAD today. At around 4:00 patient started complaining of chest pain radiating to back after which echocardiogram was done he was started on nitro drip. Cardiology was contacted and the plan was to take the patient to the Plant Maintenance Engineer. At around 1632 hrs. patient had a V-fib arrest and CODE EDDY was called. CODE BLUE was responded to by ER physician, myself and housekeeping associate. Patient had ACLS protocol CODE BLUE with intubation. During the CODE BLUE patient received multiple doses of epinephrine, sodium bicarb, 300 mg of amiodarone bolus after which amiodarone drip was started, lidocaine drip, Levophed drip along with multiple shocks. Patient achieved ROSC multiple times and then had V-fib arrest multiple times during the CODE BLUE. Eventually patient achieved ROSC 1713 hrs. and sustained a cardiac rhythm and he was moved to Plant Maintenance Engineer for repeat cardiac angiogram. The high probability of a clinically significant, sudden or life threatening deterioration of the patient's [CODE BLUE] system(s) required my full and direct attention, intervention and personal management. The critical care time is as shown. This time is in addition to time spent performing any reported procedures but includes the following: [x] Data and vital sign review and interpretation [x] Patient assessment, examination and intervention [x] Documentation [x] Medication orders and management Critical Care Time Code activated: Yes Critical Care Time (min): 90 Coding Level of Care Code Critical Care Other Coding Information Prolonged care (total time indicated above or notated here) (90) CODE BLUE twice, counseling and goals of care discussion with the family, managing drips.
--- NOTE | 2023-01-19 18:39 | PM.MISC ---
Miscellaneous Note Purpose of Documentation: Event note Note: I was called by Cardiac stepdown unit regarding patient having chest pain around 4 PM. We obtained EKGs that did not show ST elevation SC. Given patient's severe chest pain and chemical laboratory assistant was activated. However patient went into Vfib cardiac arrest prior to moving him to chemical laboratory assistant. Prolonged CPR was performed. Eventually we achieved ROSC. Patient was emergently transferred to chemical laboratory assistant. Patient had progressive hypotension and bradycardia. Cath images showed thrombosis of the LAD stents. Patient went into PEA/Asystole. Balloon angioplasty was performed but patient stayed in asystole. CPR was continued. Dr Parks, from medicine team, discussed the situation in detail with the family and they made decision to stop further attempts at CPR. Patient at 1752.
--- NOTE | 2023-01-19 19:15 | PC.NURSE ---
MTS notified of patient . Currently holding for donation decision.
--- NOTE | 2023-01-19 19:17 | PC.NURSE ---
Code Blue in [facility] 112-1; Code called overhead @1642. CPR initiated Pulse Check@1644. CPR resumed. 300 Amio IVP @1645 Pulse Check @1646 Vfib Intubated @1646 Shock @1646. CPR resumed Epi IVP @1647 Pulse Check @1648. Pulse found. CPR stopped. Versed and Fentanyl IVP and gtt orders @1650 4mg Morphine IVP @1651 Versed 4mg IVP @1652 IVF Bolus order/started @1652 No pulse. CPR resumed @ 1651 Epi IVP @1653 Pulse Check @1653 Shock @1653. Pulse found. CPR stopped. No Pulse @1654. Shock. CPR resumed. 20 Etom @1655 20 Vec @1655 Pulse Check @1655. Vfib. Shock. CPR resumed. Epi IVP @1657 Pulse Check @1658. Vfib. Shock. CPR resumed. @1659 Epi IVP @1700 1 amp bicarb IVP @1700 Pulse Check @1701-Vfib. CPR resumed. Amio Gtt @ 1702 Epi IVP @1703 Pulse Check @1703. CPR resumed @1704 Amp Bicarb @1704 Puolse Check @1705. Vfib. Shock. IVP Epi. CPR resumed @1706 Levo gtt @1707 Pullse Check @1708. Vfib. Shock. EPI IVP @1709. CPR resumed Pulse Check @1711. Shock. CPR resumed Pulse Check @1713. Epi IVP. ROSC. CPR stopped. Lidocaine gtt and Bicarb IVP @1714 Pt transferred to prosthetic lab technician.
--- NOTE | 2023-01-19 19:35 | PC.NURSE ---
Code Blue In Signs Cleaner; CPR @1740 Epi IVP @1740 Pulse Check @1742 Asystole. CPR Resumed Epi IVP @1743 Lidocaine gtt off @1743 Pulse Check @1744. Asystole. CPR @1745 Epi @1746 Pulse Check @1747. Asystole. CPR resumed. Pulse Check @1749. Asystole. CPR resumed. Epi IVP @1749. Pulse Check. @1751. Asystole. TOD called @1752
--- NOTE | 2023-01-19 23:11 | PC.NURSE ---
Marcie time [id number]
--- NOTE | 2023-01-20 18:15 | PM.CCN ---
Critical Care Event Note CODE BLUE called on cardiac stepdown unit responded as part of the code team on my arrival CPR was in progress Dr. Parks was present and running the code per his request patient was intubated assist with a code briefly after that before leaving the floor. At the time that I left the floor. Dr. Ceron and Dr. Parks were present and managing resuscitative efforts. Critical Care Time Code activated: No Critical Care Time (min): 0 Procedures Intubation Sedative: etomidate Mg given: 20 Paralytic: vecuronium Mg given: 10 Laryngoscope: Sri ET tube size: 8 ET tube uncuffed: No Tube secured depth (cm): 24 Tube secured location: teeth Tube placement confirmation: visualized tube passing through cords, equal breath sounds bilaterally, no breath sounds over epigastrium, confirmation by capnometry and color change noted Patient tolerated procedure: well Intubation complications: none Coding Level of Care Code Acute Code for Chg Fwd
== END 2023-01-19 17:52 | disposition expired | DRG 246 ==
LOC: ER 03:45 → CSU 03:50
PROVIDERS: Internal Medicine; Admitting Provider Internal Medicine; Emergency Provider Emergency Medicine; PCP Nurse Practitioner; Visit Provider Student in an Organized Health Care Education/Training Program
PROC: 027035Z Dilation of Coronary Artery, One Artery with Two Drug-eluting Intraluminal Devices, Percutaneous Approach (ICD-10-PCS; principal; 2023-01-19 06:00)
PROC: 027035Z Dilation of Coronary Artery, One Artery with Two Drug-eluting Intraluminal Devices, Percutaneous Approach (ICD-10-PCS; 2023-01-19 06:00)
DX: I21.4 Non-ST elevation (NSTEMI) myocardial infarction (principal); J96.22 Acute and chronic respiratory failure with hypercapnia; I25.719 Atherosclerosis of autologous vein coronary artery bypass graft(s) with unspecified angina pectoris; T82.855A Stenosis of coronary artery stent, initial encounter; I50.32 Chronic diastolic (congestive) heart failure; I97.190 Other postprocedural cardiac functional disturbances following cardiac surgery; I25.119 Atherosclerotic heart disease of native coronary artery with unspecified angina pectoris; Y71.8 Miscellaneous cardiovascular devices associated with adverse incidents, not elsewhere classified; E11.22 Type 2 diabetes mellitus with diabetic chronic kidney disease; N18.2 Chronic kidney disease, stage 2 (mild); J44.9 Chronic obstructive pulmonary disease, unspecified; Z99.81 Dependence on supplemental oxygen; E03.9 Hypothyroidism, unspecified; E78.2 Mixed hyperlipidemia; G47.33 Obstructive sleep apnea (adult) (pediatric); I95.9 Hypotension, unspecified; I46.9 Cardiac arrest, cause unspecified; I49.01 Ventricular fibrillation; Z87.891 Personal history of nicotine dependence; K59.01 Slow transit constipation; D75.1 Secondary polycythemia
CPT/HCPCS: 31500; 36415; 36416; 36600; 71045; 80048; 80051; 80053; 80061; 81003; 82330; 82805; 82962; 83036; 83735; 83880; 84100; 84145; 84443; 84484; 85025; 85347; 92920; 92950; 92978; 93005; 93455; 94640; 94660; 94664; 96367; 96372; 96374; 96375; 96376; 99152; 99153; 99223; 99285; C1725; C1753; C1769; C1874; C1887; C1894; C8929; C9600; J0171; J0282; J1644; J1650; J1815; J2001; J2250; J2270; J2405; J3010; J3475; J3490; J7030; J7626; Q0163; Q9956; Q9967